=== PATIENT | male | born 1940 | race Caucasian/White ===

== ENCOUNTER 2017-03-30 11:08 | Emergency (ER) | payer MEDICARE, BC ==
[2017-03-30 11:36] VITALS: BP 151/83
--- NOTE | 2017-03-30 13:27 | EDM.PDOC ---
ED HPI GENERAL MEDICAL PROBLEM - General Chief Complaint: Lower Extremity Injury/Pain Stated Complaint: RIGHT HIP/LEG PAIN Time Seen by Provider: 03/30/17 11:24 Source of Information: Reports: Patient History Limitations: Reports: No Limitations - History of Present Illness INITIAL COMMENTS - FREE TEXT/NARRATIVE: patient comes in requesting pain medications for his chronic right hip pain. He states that he has had this pain for about the last 2 months with no improvements in his pain levels. He has had 2 injections here by Madi Olmos CRNA which he states helped for a couple of days. He has not experienced any falls or other recent trauma to the hip. He does have a primary provider but has not been to see her regarding this. He is a 1 PPD smoker, does not use illegal drugs, but does drink regularly. He denies chest pain, SOB, LOC, abdominal pain, fever, chills, night sweats. No foot drop or numbness or tingling to the leg. Duration: Chronic Location: Reports: Lower Extremity, Right Severity: Moderate Associated Symptoms: Reports: No Other Symptoms Hip Pain Score (Numeric/FACES): 9 - Related Data Allergies Allergy/AdvReac Type Severity Reaction Status Date / Time No Known Drug Allergies Allergy Other Verified 03/30/17 11:42 hydrocodone AdvReac Hallucinati Verified 03/30/17 11:42 ons Home Meds: Home Meds Allopurinol [Zyloprim] 100 mg PO DAILY 07/04/13 [History] Cyanocobalamin (Vitamin B-12) [Vitamin B-12] 1,000 mcg SL DAILY 07/04/13 [ History] Folic Acid 1 mg PO DAILY 07/04/13 [History] Lisinopril 40 mg PO DAILY 07/04/13 [History] Multivitamin [Multi-Vitamin Daily] 1 tab PO DAILY 07/04/13 [History] amLODIPine [Norvasc] 10 mg PO DAILY 07/04/13 [History] Metoprolol Tartrate 50 mg PO BID 03/04/15 [History] Mirtazapine [Remeron] 15 mg PO BEDTIME 03/04/15 [History] Pantoprazole [ProTONIX] 40 mg PO DAILY 03/04/15 [History] Sucralfate [Carafate] 1 gm PO QID 03/04/15 [History] Albuterol [IJD: Ventolin HFA] 2 puff INH Q6H PRN 02/24/17 [History] Fenofibrate Nanocrystallized [Tricor] 145 mg PO DAILY 02/24/17 [History] Sennosides/Docusate Sodium [Sennosides-Docusate Sodium] 1 tab PO DAILY PRN 02/24 [History] Simethicone 10 ml PO QID PRN 02/24/17 [History] Venlafaxine HCl [Venlafaxine ER] 150 mg PO DAILY 02/24/17 [History] Aspirin [Ecotrin] 2 tab 03/10/17 [History] Past Medical History HEENT History: Reports: Hard of Hearing, Impaired Vision Cardiovascular History: Reports: Hypertension Respiratory History: Reports: None Gastrointestinal History: Reports: Other (See Below) Other Gastrointestinal History: Figueroa's esophagus, hx colon polyps Genitourinary History: Reports: Renal Calculus Other Genitourinary History: CKD III Musculoskeletal History: Reports: Connective Tissue Disease Other Musculoskeletal History: R hip FX, surgery on back Neurological History: Reports: Other (See Below) Other Neuro History: Wernicke encephalopathy Psychiatric History: Reports: Addiction, Other (See Below) Other Psychiatric History: Dementia Hematologic History: Reports: None Immunologic History: Reports: None Oncologic (Cancer) History: Reports: None - Past Surgical History Head Surgeries/Procedures: Reports: None GI Surgical History: Reports: Colonoscopy, Hernia Repair/Other Neurological Surgical History: Reports: Lumbar Spine Musculoskeletal Surgical History: Reports: Other (See Below) Other Musculoskeletal Surgeries/Procedures:: ORIF right hip Social & Family History - Family History Family Medical History: Unobtainable Oncologic: Reports: Breast, Colon - Tobacco Use Smoking Status *Q: Current Every Day Smoker Years of Tobacco use: 70 Packs/Tins Daily: 1 Used Tobacco, but Quit: No Second Hand Smoke Exposure: Yes - Caffeine Use Caffeine Use: Reports: Tea - Alcohol Use Days Per Week of Alcohol Use: 0 Number of Drinks Per Day: 0 Total Drinks Per Week: 0 - Recreational Drug Use Recreational Drug Use: No Drug Use in Last 12 Months: No - Living Situation & Occupation Living situation: Reports: , Alone, Other ( retirement alzheimer's) Review of Systems - Review of Systems Review Of Systems: ROS reveals no pertinent complaints other than HPI. ED EXAM, GENERAL - Physical Exam Exam: See Below Exam Limited By: No Limitations General Appearance: Alert, WD/WN, Mild Distress Eye Exam: Bilateral Eye: PERRL Ears: Normal TMs Head: Atraumatic, Normocephalic Neck: Normal Inspection, Supple, Non-Tender, Full Range of Motion Respiratory/Chest: No Respiratory Distress, Lungs Clear, Normal Breath Sounds, No Accessory Muscle Use, Chest Non-Tender Cardiovascular: Normal Peripheral Pulses, Regular Rate, Rhythm, No Edema, No Gallop, No JVD, No Murmur, No Rub Peripheral Pulses: 2+: Posterior Tibial (L), Posterior Tibial (R), Dorsalis Pedis (L), Dorsalis Pedis (R) GI/Abdominal: Normal Bowel Sounds, Soft, Non-Tender, No Organomegaly, No Distention, No Abnormal Bruit, No Mass Back Exam: Normal Inspection, Full Range of Motion, NT Extremities: Normal Inspection, Non-Tender, No Pedal Edema, Normal Capillary Refill, Limited Range of Motion (right leg pain) Neurological: Alert, Oriented, CN II-XII Intact, Normal Cognition, Normal Gait, Normal Reflexes, No Motor/Sensory Deficits Psychiatric: Normal Affect, Normal Mood Skin Exam: Warm, Dry, Intact, Normal Color, No Rash Lymphatic: No Adenopathy Course - Vital Signs Last Recorded V/S: Last Vital Signs Temp 36.9 C 03/30/17 11:15 Pulse 98 03/30/17 11:15 Resp 18 03/30/17 11:15 BP 151/83 H 03/30/17 11:15 Pulse Ox 98 03/30/17 11:15 - Orders/Labs/Meds Orders: Active Orders 24 hr Category Date Time Status Pelvis wo Cont [CT] Stat Exams 03/30/17 11:43 Taken - Re-Assessments/Exams Free Text/Narrative Re-Assessment/Exam: 03/31/17 06:39 CT of right hip shows hardware is intact, no fracture, chronic arthritis to joint and bones to the hip Departure - Departure Time of Disposition: 13:14 Disposition: Home, Self-Care 01 Condition: Good Clinical Impression: Chronic right hip pain - Discharge Information Instructions: Hip Pain Referrals: Mary Ellen Polanco RAIL EQUIPMENT OPERATOR [Primary Care Provider] - Forms: ED Department Discharge Additional Instructions: Keep your appointment with Mary Ellen Polanco tomorrow at 1 pm. I don't manage chronic pain in the ER, this should be taken care of with your primary provider. Your CT did not show any problems with the hardware in your hip. Please call with any questions or concerns. - Problem List & Annotations (1) Chronic right hip pain SNOMED Code(s): 12732341 Code(s): M25.551 - PAIN IN RIGHT HIP; G89.29 - OTHER CHRONIC PAIN Status: Chronic Priority: Medium Annotation/Comment:: 24 February 2017. Patient has significant right hip pain particularly with any type of rotational movement. Also is significantly increased by weight bearing. X-ray exists exam shows degenerative changes within the hip joint. That is there does appear to be intact. This likely is the pain is related to the degenerative changes. Plan today is to do a right periarticular hip joint injection.we will follow up post injection to see if there is reduction post injection. 10 March 2017. Patient has experienced approximately 80% relief of the periarticular joint injection of the right hip. He still continues to have pain more laterally and posteriorly. I believe this is most likely secondary to the trigger points. Patient made have some degenerative hip issues that were not seen on regular radiographs. If he continues to have discomfort and some low back pain would consider an lumbar MRI and possibly a right hip MRI. If patient continues to have joint related pain, the patient may be a candidate for nerve ablation of the hip. - My Orders Last 24 Hours: My Active Orders 03/30/17 11:43 Pelvis wo Cont [CT] Stat - Assessment/Plan Last 24 Hours: My Active Orders 03/30/17 11:43 Pelvis wo Cont [CT] Stat Assessment:: chronic right hip pain Plan: Keep your appointment with Mary Ellen Polanco tomorrow at 1 pm. I don't manage chronic pain in the ER, this should be taken care of with your primary provider. Your CT did not show any problems with the hardware in your hip. Please call with any questions or concerns.
== END 2017-03-30 13:20 | disposition home or self-care (01) ==
LOC: VM.ED 11:08
DX: M25.551 Pain in right hip (principal); G89.29 Other chronic pain; I12.9 Hypertensive chronic kidney disease with stage 1 through stage 4 chronic kidney disease, or unspecified chronic kidney disease; N18.3 Chronic kidney disease, stage 3 (moderate); F17.210 Nicotine dependence, cigarettes, uncomplicated; Z88.5 Allergy status to narcotic agent; Z79.899 Other long term (current) drug therapy; Z79.82 Long term (current) use of aspirin
CPT/HCPCS: 72192; 99283; 99283-GF

== ENCOUNTER 2017-07-27 16:03 | Emergency (ER) | payer MEDICARE, BC ==
[2017-07-27] MEDS ORDERED: Sodium Chloride 0.9% 10 ML Syringe FLUSH PRN (16:32)
[2017-07-27] MEDS ORDERED: Lactated Ringers 1,000 ML IV ONE (16:33)
--- NOTE | 2017-07-27 17:25 | EDM.PDOC ---
ED HPI GENERAL MEDICAL PROBLEM - General Chief Complaint: General Stated Complaint: Weakness; Weight loss; not feeling well Time Seen by Provider: 07/27/17 16:04 Source of Information: Reports: Patient, Family, Provider (Mary Ellen Polanco NP), RN , RN Notes Reviewed History Limitations: Reports: No Limitations - History of Present Illness INITIAL COMMENTS - FREE TEXT/NARRATIVE: Patient is sent to this ED from [facility] for further workup. According to the patients PCP, the patient apparently has a failure to thrive, bilateral leg weakness, and frequent falls at home. The patient's son states television script writer found the patient laying on the floor at home. It is unknown how long the patient had been on the floor. Patient is a poor historian as he seems confused about todays events. The patient has had a 13# weight loss since 2017. He son states he has been consuming a considerable amount of water and teas. He does eat, but not very much over the past couple of weeks. Onset: Gradual Lower Back Pain Score (Numeric/FACES): 5 - Related Data Allergies Allergy/AdvReac Type Severity Reaction Status Date / Time duloxetine [From Cymbalta] Allergy Other Verified 07/27/17 16:24 hydrocodone AdvReac Hallucinati Verified 07/27/17 16:24 ons Home Meds: Home Meds Allopurinol [Zyloprim] 100 mg PO DAILY 07/04/13 [History] Folic Acid 1 mg PO DAILY 07/04/13 [History] Lisinopril 40 mg PO DAILY 07/04/13 [History] Metoprolol Tartrate 50 mg PO BID 03/04/15 [History] Mirtazapine [Remeron] 15 mg PO BEDTIME 03/04/15 [History] Pantoprazole [ProTONIX] 40 mg PO DAILY 03/04/15 [History] Sucralfate [Carafate] 1 gm PO QID 03/04/15 [History] Albuterol [IJD: Ventolin HFA] 2 puff INH Q6H PRN 02/24/17 [History] Fenofibrate Nanocrystallized [Tricor] 145 mg PO DAILY 02/24/17 [History] Sennosides/Docusate Sodium [Sennosides-Docusate Sodium] 1 tab PO DAILY PRN 02/24 [History] Simethicone 10 - 20 ml PO QID PRN 02/24/17 [History] Acetaminophen [Tylenol Extra Strength] 500 mg PO DAILY PRN 07/23/17 [History] Ibuprofen [Advil] 200 mg PO Q6H PRN 07/23/17 [History] Cyanocobalamin (Vitamin B-12) [Cyanocobalamin Injection] 1,000 mcg IM Q30D 07/27 [History] Gabapentin [Neurontin] 100 mg PO DAILY 07/27/17 [History] Venlafaxine [Effexor XR] 150 mg PO DAILY 07/27/17 [History] amLODIPine Besylate [Amlodipine Besylate] 10 mg PO DAILY 07/27/17 [History] Past Medical History HEENT History: Reports: Hard of Hearing, Impaired Vision Cardiovascular History: Reports: Hypertension Respiratory History: Reports: None Gastrointestinal History: Reports: Other (See Below) Other Gastrointestinal History: Figueroa's esophagus, hx colon polyps Genitourinary History: Reports: Renal Calculus Other Genitourinary History: CKD III Musculoskeletal History: Reports: Connective Tissue Disease Other Musculoskeletal History: R hip FX, surgery on back Neurological History: Reports: Other (See Below) Other Neuro History: Wernicke encephalopathy Psychiatric History: Reports: Addiction, Other (See Below) Other Psychiatric History: Dementia Hematologic History: Reports: None Immunologic History: Reports: None Oncologic (Cancer) History: Reports: None - Past Surgical History Head Surgeries/Procedures: Reports: None GI Surgical History: Reports: Colonoscopy, Hernia Repair/Other Neurological Surgical History: Reports: Lumbar Spine Musculoskeletal Surgical History: Reports: Other (See Below) Other Musculoskeletal Surgeries/Procedures:: ORIF right hip Social & Family History - Family History Family Medical History: Unobtainable Oncologic: Reports: Breast, Colon - Tobacco Use Smoking Status *Q: Current Every Day Smoker Years of Tobacco use: 60 Packs/Tins Daily: 1 Used Tobacco, but Quit: No Second Hand Smoke Exposure: No - Caffeine Use Caffeine Use: Reports: Tea - Alcohol Use Days Per Week of Alcohol Use: 0 Number of Drinks Per Day: 0 Total Drinks Per Week: 0 - Recreational Drug Use Recreational Drug Use: No Drug Use in Last 12 Months: No - Living Situation & Occupation Living situation: Reports: , Alone, Other ( half-way alzheimer's) ED ROS GENERAL - Review of Systems Review Of Systems: See Below Constitutional: Reports: Weakness, Decreased Appetite, Weight Loss. Denies: Fever, Chills Respiratory: Denies: Shortness of Breath, Cough Cardiovascular: Denies: Chest Pain, Palpitations GI/Abdominal: Denies: Abdominal Pain, Nausea, Vomiting Musculoskeletal: Reports: Other (Generalized pain from arthritis) Skin: Reports: No Symptoms Neurological: Reports: Confusion, Weakness, Gait Disturbance. Denies: Headache ED EXAM, GENERAL - Physical Exam Exam: See Below Exam Limited By: Altered Mental Status General Appearance: Alert, No Apparent Distress, Cachetic Head: Atraumatic, Normocephalic Neck: Supple Respiratory/Chest: No Respiratory Distress, Normal Breath Sounds, Decreased Breath Sounds Cardiovascular: Normal Peripheral Pulses, Regular Rate, Rhythm Peripheral Pulses: 1+: Radial (L), Radial (R) GI/Abdominal: Soft, Non-Tender, Abnormal Bowel Sounds (Hypoactive) Neurological: Alert, Confused, Disoriented Skin Exam: Warm, Dry EKG INTERPRETATION EKG Date: 07/27/17 Time: 16:54 Rhythm: NSR Rate (Beats/Min): 74 Doyle: Normal P-Wave: Present QRS: Normal ST-T: Normal QT: Normal RI/PQ Interval: 0.14 Comparison: No Change EKG Interpretation Comments: 1. Sinus Rhythm with occasional PVC's 2. Borderline ECG Course - Vital Signs Last Recorded V/S: Last Vital Signs Temp 36.1 C 07/27/17 16:10 Pulse 75 07/27/17 16:10 Resp 16 07/27/17 16:10 BP 145/51 H 07/27/17 16:10 Pulse Ox 97 07/27/17 16:10 - Orders/Labs/Meds Orders: Active Orders 24 hr Category Date Time Status EKG 12 Lead [EKG Documentation Completion] [RC] STAT Care 07/27/17 16:34 Active Chest 1V Frontal [CR] Stat Exams 07/27/17 16:33 Taken Head wo Cont [CT] Stat Exams 07/27/17 17:29 Taken UA W/MICROSCOPIC [URIN] Stat Lab 07/27/17 16:06 Ordered Sodium Chloride 0.9% [Saline Flush] Med 07/27/17 16:32 Active 10 ml FLUSH ASDIRECTED PRN Peripheral IV Insertion Adult [OM.PC] Routine Oth 07/27/17 16:32 Ordered Medication Orders Sodium Chloride (Saline Flush) 10 ml FLUSH ASDIRECTED PRN PRN Reason: Keep Vein Open Labs: Laboratory Tests 07/27/17 07/27/17 07/27/17 Range/Units 15:36 16:27 16:27 Lactic Acid 1.0 (0.4-2.0) mmol/L Magnesium 1.7 L (1.8-2.4) mg/dL Creatine Kinase 1087 H* (39-308) U/L Troponin I < 0.017 (<=0.056) ng/mL C-Reactive Protein 23.2 H (<=0.9) mg/dL TSH, Ultra Sensitive 0.308 L (0.358-3.74) uIU/mL Ethyl Alcohol < 3 (0-3) mg/dL Meds: Medications Generic Name Dose Route Start Last Admin Trade Name Freq PRN Reason Stop Dose Admin Sodium Chloride 10 ml 07/27/17 16:32 Saline Flush FLUSH ASDIRECTED PRN Keep Vein Open Discontinued Medications Generic Name Dose Route Start Last Admin Trade Name Freq PRN Reason Stop Dose Admin Lactated Ringer's 1,000 mls @ 999 mls/hr 07/27/17 16:33 07/27/17 17:00 Ringers, Lactated IV 07/27/17 17:33 999 mls/hr ONETIME ONE Administration Departure - Departure Time of Disposition: 18:08 Disposition: DC/Tfer to [facility] 02 Condition: Fair Clinical Impression: Acute kidney injury (nontraumatic), Bilateral leg weakness, Unintentional weight loss Rhabdomyolysis Qualifiers: Rhabdomyolysis type: non-traumatic Qualified Code(s): M62.82 - Rhabdomyolysis - Discharge Information Forms: Interfacility Transfer [facility] ED Communication - ED Communication Date/Time Date: 07/27/17 Time Called: 17:50 - Discussed Case With (1) Discussed Case With (1): Admitting Provider (Dr. Horton) - Conversation Summary Admitting Provider Agreed to Patient's Admission: Yes Patient Aware of Amendments fo Care Plan: Yes - Problem List Review Problem List Initiated/Reviewed/Updated: Yes - My Orders Last 24 Hours: My Active Orders 07/27/17 16:06 UA W/MICROSCOPIC [URIN] Stat 07/27/17 16:32 Sodium Chloride 0.9% [Saline Flush] 10 ml FLUSH ASDIRECTED PRN Peripheral IV Insertion Adult [OM.PC] Routine 07/27/17 16:33 Chest 1V Frontal [CR] Stat 07/27/17 16:34 EKG 12 Lead [EKG Documentation Completion] [RC] STAT 07/27/17 17:29 Head wo Cont [CT] Stat - Assessment/Plan Last 24 Hours: My Active Orders 07/27/17 16:06 UA W/MICROSCOPIC [URIN] Stat 07/27/17 16:32 Sodium Chloride 0.9% [Saline Flush] 10 ml FLUSH ASDIRECTED PRN Peripheral IV Insertion Adult [OM.PC] Routine 07/27/17 16:33 Chest 1V Frontal [CR] Stat 07/27/17 16:34 EKG 12 Lead [EKG Documentation Completion] [RC] STAT 07/27/17 17:29 Head wo Cont [CT] Stat Assessment:: Rhabdomyelitis Acute Kidney Injury Elevated Liver Enzymes Hypokalemia Bilateral leg weakness Plan: Case discussed with Dr. Horton, [facility]. Report given and patient accepted in transfer. Patient will be sent via ALS ground. Patient and son agree with POC and wish to proceed.
[2017-07-27 18:23] VITALS: BP 131/65
== END 2017-07-27 18:52 | disposition short-term general hospital (02) ==
LOC: VM.ED 16:03
DX: R63.4 Abnormal weight loss (principal); N17.9 Acute kidney failure, unspecified; M62.82 Rhabdomyolysis; M62.81 Muscle weakness (generalized); I12.9 Hypertensive chronic kidney disease with stage 1 through stage 4 chronic kidney disease, or unspecified chronic kidney disease; N18.3 Chronic kidney disease, stage 3 (moderate); F17.210 Nicotine dependence, cigarettes, uncomplicated; Z88.5 Allergy status to narcotic agent; Z88.8 Allergy status to other drugs, medicaments and biological substances; Z79.899 Other long term (current) drug therapy
CPT/HCPCS: 36415; 70450; 71045; 82550; 83605; 83735; 84443; 84484; 86140; 93005; 93010; 96360; 96361; 99284; 99285; G0480; J7120

== ENCOUNTER 2018-11-04 18:43 | Emergency (ER) | payer MEDICARE, BC ==
[2018-11-04] MEDS ORDERED: Methocarbamol 500 MG Tab PO ONE (19:03)
[2018-11-04] MEDS ORDERED: Take Home: traMADol 50 MG, 4 Tab Pack PO ONE (19:04)
[2018-11-04 19:06] VITALS: BP 131/63; PULSE 73
--- NOTE | 2018-11-04 19:11 | EDM.PDOC ---
ED HPI GENERAL MEDICAL PROBLEM - General Chief Complaint: Back Pain or Injury Stated Complaint: BACK PAIN Time Seen by Provider: 11/04/18 19:00 Source of Information: Reports: Patient, Other (Neighbor) History Limitations: Reports: No Limitations - History of Present Illness INITIAL COMMENTS - FREE TEXT/NARRATIVE: 77-year-old white male who presents her to the clinic with left-sided back pain times about a day and a half patient states it is a 10 out of 10 throbbing constant but gets worse with walking and movement somewhat better with sitting or laying but still hurts. Patient denies any injury states he does have intermittent back pain for years. States he also has a history of kidney stones but this does not feel like it. He denies any fever or chills nausea or vomiting abdominal pain trouble with urination hematuria. He also denies any numbness or tingling loss of sensation or weakness. He has had multiple back surgeries in the past with fusions states he is only taken a couple aspirin at home which did not alleviate the pain He has no known history of aneurysms Patient states the pain is just to the left side of the spine he denies any radiation pain Duration: Day(s): Location: Reports: Back Quality: Reports: Throbbing Severity: Severe Improves with: Reports: Rest Worsens with: Reports: Movement Associated Symptoms: Reports: No Other Symptoms Treatments MEDICAL PLANNER: Reports: Aspirin - Related Data Allergies Allergy/AdvReac Type Severity Reaction Status Date / Time duloxetine [From Cymbalta] Allergy Other Verified 11/04/18 19:02 hydrocodone AdvReac Hallucinati Verified 11/04/18 19:02 ons Home Meds: Home Meds Allopurinol [Zyloprim] 100 mg PO DAILY 07/04/13 [History] Folic Acid 1 mg PO DAILY 07/04/13 [History] Lisinopril 40 mg PO DAILY 07/04/13 [History] Mirtazapine [Remeron] 15 mg PO BEDTIME 03/04/15 [History] Pantoprazole [ProTONIX] 40 mg PO DAILY 03/04/15 [History] Sucralfate [Carafate] 1 gm PO QID 03/04/15 [History] Albuterol [IJD: Ventolin HFA] 2 puff INH Q6H PRN 02/24/17 [History] Ibuprofen [Advil] 200 mg PO Q6H PRN 07/23/17 [History] Cyanocobalamin (Vitamin B-12) [Cyanocobalamin Injection] 1,000 mcg IM Q30D 07/27 [History] Gabapentin [Neurontin] 100 mg PO TID 07/27/17 [History] Venlafaxine [Effexor XR] 150 mg PO DAILY 07/27/17 [History] amLODIPine Besylate [Amlodipine Besylate] 10 mg PO DAILY 07/27/17 [History] Acetaminophen/Caffeine [Excedrin Tension Headache Cplt] 1 - 2 tab PO Q4H PRN [History] Bisacodyl 5 - 15 mg PO QAM PRN 01/26/18 [History] Carvedilol [Coreg] 25 mg PO BID 01/26/18 [History] Cholecalciferol (Vitamin D3) [Vitamin D3] 2,000 unit PO DAILY 01/26/18 [History] Polyethylene Glycol 3350 [MiraLAX] 1 packet PO DAILY PRN 01/26/18 [History] Past Medical History HEENT History: Reports: Hard of Hearing, Impaired Vision Cardiovascular History: Reports: High Cholesterol, Hypertension Respiratory History: Reports: None Gastrointestinal History: Reports: GERD, Other (See Below) Other Gastrointestinal History: Figueroa's esophagus, hx colon polyps, fm hx colon ca Genitourinary History: Reports: BPH, Chronic Renal Insuffiency, Renal Calculus, Renal Disease Other Genitourinary History: CKD III Musculoskeletal History: Reports: Connective Tissue Disease, Gout Other Musculoskeletal History: R hip FX, surgery on back, chronic fatigue Neurological History: Reports: Other (See Below) Other Neuro History: Wernicke encephalopathy Psychiatric History: Reports: Addiction, Anxiety, Depression, Other (See Below) Other Psychiatric History: Dementia Endocrine/Metabolic History: Reports: Other (See Below) Other Endocrine/Metabolic History: spinal stenosis lumbar Hematologic History: Reports: B12 Deficiency, Other (See Below) Other Hematologic History: hypokalemia. mypomagnesemia Immunologic History: Reports: None Oncologic (Cancer) History: Reports: None - Past Surgical History Head Surgeries/Procedures: Reports: None HEENT Surgical History: Reports: Other (See Below) Other HEENT Surgeries/Procedures: Bevacizumab injection GI Surgical History: Reports: Colonoscopy, Hernia Repair/Other Male Surgical History: Reports: Renal Calculus Neurological Surgical History: Reports: Lumbar Spine Musculoskeletal Surgical History: Reports: Other (See Below) Other Musculoskeletal Surgeries/Procedures:: ORIF right hip Social & Family History - Family History Family Medical History: Unobtainable Oncologic: Reports: Breast, Colon - Caffeine Use Caffeine Use: Reports: Tea - Living Situation & Occupation Living situation: Reports: , Alone, Other ( [facility]) ED ROS GENERAL - Review of Systems Review Of Systems: See Below Constitutional: Reports: No Symptoms. Denies: Fever, Chills, Malaise, Weakness , Fatigue HEENT: Reports: No Symptoms Respiratory: Reports: No Symptoms Cardiovascular: Reports: No Symptoms Endocrine: Reports: No Symptoms GI/Abdominal: Reports: No Symptoms. Denies: Abdominal Pain, Black Stool, Bloody Stool : Reports: No Symptoms. Denies: Dysuria, Flank Pain, Frequency, Pain Musculoskeletal: Reports: Back Pain Skin: Reports: No Symptoms Neurological: Reports: No Symptoms Hematologic/Lymphatic: Reports: No Symptoms Immunologic: Reports: No Symptoms ED EXAM,LOWER BACK PAIN/INJURY - Physical Exam Exam: See Below Exam Limited By: No Limitations General Appearance: Alert, WD/WN, No Apparent Distress, Other (PT currently uses a quad roller) Throat/Mouth: Normal Voice, No Airway Compromise Head: Atraumatic, Normocephalic Neck: Normal Inspection, Full Range of Motion Respiratory/Chest: No Respiratory Distress, No Accessory Muscle Use GI/Abdominal: Normal Bowel Sounds, Soft, Non-Tender, No Organomegaly, No Distention Back Exam: Normal Inspection, Full Range of Motion, Other (No noted rashes on the back no midline tenderness palpation mild tenderness to palpation over the left lateral paraspinal muscle with reproduction of pain proximally L3 area no noted spasms could be felt patient has full range of motion normal straight leg raises 2+ DTRs bilateral normal dorsiflexion normal plantar flexion equal sensation) Extremities: Normal Inspection, Normal Range of Motion, Non-Tender, No Pedal Edema. No: Pedal Edema Neurological: Alert, Normal Mood/Affect, Normal Dorsiflexion, CN II-XII Intact, Normal Plantar Flexion, Normal Gait, Normal Reflexes, No Motor/Sensory Deficits , Oriented x 3 Psychiatric: Normal Affect, Normal Mood Skin Exam: Warm, Dry, Intact, Normal Color, No Rash Course - Vital Signs Text/Narrative:: Patient was given 1000 mg Robaxin by mouth and Ultram 50 mg 1 by mouth every 6- 8 hours taken on package 2 was told to take Tylenol one tablet by mouth every 4 -6 hours apply ice or heat whichever make him more comfortable follow-up primary care provider next 2-3 days or return to emergency room if anything got worse - Orders/Labs/Meds Orders: Active Orders 24 hr Category Date Time Status traMADol [Take Home: traMADol 50 MG, 4 Tab Pack] Med 11/04/18 19:04 Once 2 packet PO ONETIME ONE Meds: Medications Discontinued Medications Generic Name Dose Route Start Last Admin Trade Name Malvinq PRN Reason Stop Dose Admin Methocarbamol 1,000 mg 11/04/18 19:03 Robaxin PO 11/04/18 19:04 ONETIME ONE Departure - Departure Time of Disposition: 19:20 Disposition: Home, Self-Care 01 Condition: Good Clinical Impression: Back pain - Discharge Information *PRESCRIPTION DRUG MONITORING PROGRAM REVIEWED*: No *COPY OF PRESCRIPTION DRUG MONITORING REPORT IN PATIENT KAYLAN: No Referrals: Mary Ellen Polanco NP [Primary Care Provider] - - Problem List & Annotations (1) Back pain SNOMED Code(s): 987594324 Code(s): M54.9 - DORSALGIA, UNSPECIFIED Status: Acute Current Visit: Yes Qualifiers: Back pain location: low back pain Back pain laterality: left - My Orders Last 24 Hours: My Active Orders 11/04/18 19:04 traMADol [Take Home: traMADol 50 MG, 4 Tab Pack] 2 packet PO ONETIME ONE - Assessment/Plan Last 24 Hours: My Active Orders 11/04/18 19:04 traMADol [Take Home: traMADol 50 MG, 4 Tab Pack] 2 packet PO ONETIME ONE
== END 2018-11-04 19:23 | disposition home or self-care (01) ==
LOC: VM.ED 18:43
DX: M54.5 Low back pain (principal); I12.9 Hypertensive chronic kidney disease with stage 1 through stage 4 chronic kidney disease, or unspecified chronic kidney disease; N18.3 Chronic kidney disease, stage 3 (moderate); K21.9 Gastro-esophageal reflux disease without esophagitis; F41.9 Anxiety disorder, unspecified; F32.9 Major depressive disorder, single episode, unspecified; M10.9 Gout, unspecified; Z88.5 Allergy status to narcotic agent; Z88.8 Allergy status to other drugs, medicaments and biological substances; Z79.82 Long term (current) use of aspirin; Z79.01 Long term (current) use of anticoagulants; Z79.811 Long term (current) use of aromatase inhibitors; Z79.1 Long term (current) use of non-steroidal anti-inflammatories (NSAID); Z79.891 Long term (current) use of opiate analgesic; Z79.899 Other long term (current) drug therapy
CPT/HCPCS: 99282; A9270; 99283-GF

== ENCOUNTER 2018-11-05 12:44 | Emergency (ER) | payer MEDICARE, BC ==
[2018-11-05 12:55] VITALS: BP 142/75; PULSE 86
--- NOTE | 2018-11-05 13:16 | EDM.PDOC ---
ED HPI GENERAL MEDICAL PROBLEM - General Chief Complaint: Back Pain or Injury Stated Complaint: KIDNEY STONE Time Seen by Provider: 11/05/18 12:55 Source of Information: Reports: Patient History Limitations: Reports: No Limitations - History of Present Illness INITIAL COMMENTS - FREE TEXT/NARRATIVE: Patient presents again to the ER today for the second time with still complaints of having left lower back pain 10 out of 10 throbbing nonradiating same as yesterday but today he thinks it may be a kidney stone. He states that he did take the medications he received last night ER Robaxin and Ultram was able sleep through the night with no issues but the pain returned today. There for he returned to the emergency room. Patient denies any abdominal complaints no nausea vomiting no pain radiation no weakness no loss of bowel or bladder no numbness no tingling or walking no urinary retention Duration: Hour(s): Location: Reports: Back Improves with: Reports: Medication Worsens with: Reports: Movement Left Lower Back Pain Score (Numeric/FACES): 10 - Related Data Allergies Allergy/AdvReac Type Severity Reaction Status Date / Time duloxetine [From Cymbalta] Allergy Other Verified 11/05/18 12:56 hydrocodone AdvReac Hallucinati Verified 11/05/18 12:56 ons Home Meds: Home Meds Allopurinol [Zyloprim] 100 mg PO DAILY 07/04/13 [History] Folic Acid 1 mg PO DAILY 07/04/13 [History] Lisinopril 40 mg PO DAILY 07/04/13 [History] Mirtazapine [Remeron] 15 mg PO BEDTIME 03/04/15 [History] Pantoprazole [ProTONIX] 40 mg PO DAILY 03/04/15 [History] Sucralfate [Carafate] 1 gm PO QID 03/04/15 [History] Albuterol [IJD: Ventolin HFA] 2 puff INH Q6H PRN 02/24/17 [History] Ibuprofen [Advil] 600 mg PO Q6H PRN 07/23/17 [History] Cyanocobalamin (Vitamin B-12) [Cyanocobalamin Injection] 1,000 mcg IM Q30D 07/27 [History] Gabapentin [Neurontin] 100 mg PO TID 07/27/17 [History] Venlafaxine [Effexor XR] 150 mg PO DAILY 07/27/17 [History] amLODIPine Besylate [Amlodipine Besylate] 10 mg PO DAILY 07/27/17 [History] Acetaminophen/Caffeine [Excedrin Tension Headache Cplt] 1 - 2 tab PO Q4H PRN [History] Bisacodyl 5 - 15 mg PO QAM PRN 01/26/18 [History] Carvedilol [Coreg] 25 mg PO BID 01/26/18 [History] Cholecalciferol (Vitamin D3) [Vitamin D3] 2,000 unit PO DAILY 01/26/18 [History] Polyethylene Glycol 3350 [MiraLAX] 1 packet PO DAILY PRN 01/26/18 [History] Past Medical History HEENT History: Reports: Hard of Hearing, Impaired Vision Cardiovascular History: Reports: High Cholesterol, Hypertension Respiratory History: Reports: None Gastrointestinal History: Reports: GERD, Other (See Below) Other Gastrointestinal History: Figueroa's esophagus, hx colon polyps, fm hx colon ca Genitourinary History: Reports: BPH, Chronic Renal Insuffiency, Renal Calculus, Renal Disease Other Genitourinary History: CKD III Musculoskeletal History: Reports: Connective Tissue Disease, Gout Other Musculoskeletal History: R hip FX, surgery on back, chronic fatigue Neurological History: Reports: Other (See Below) Other Neuro History: Wernicke encephalopathy Psychiatric History: Reports: Addiction, Anxiety, Depression, Other (See Below) Other Psychiatric History: Dementia Endocrine/Metabolic History: Reports: Other (See Below) Other Endocrine/Metabolic History: spinal stenosis lumbar Hematologic History: Reports: B12 Deficiency, Other (See Below) Other Hematologic History: hypokalemia. mypomagnesemia Immunologic History: Reports: None Oncologic (Cancer) History: Reports: None - Past Surgical History Head Surgeries/Procedures: Reports: None HEENT Surgical History: Reports: Other (See Below) Other HEENT Surgeries/Procedures: Bevacizumab injection GI Surgical History: Reports: Colonoscopy, Hernia Repair/Other Male Surgical History: Reports: Renal Calculus Neurological Surgical History: Reports: Lumbar Spine Musculoskeletal Surgical History: Reports: Other (See Below) Other Musculoskeletal Surgeries/Procedures:: ORIF right hip Social & Family History - Family History Family Medical History: Unobtainable Oncologic: Reports: Breast, Colon - Tobacco Use Smoking Status *Q: Unknown Ever Smoked - Caffeine Use Caffeine Use: Reports: Tea - Living Situation & Occupation Living situation: Reports: , Alone, Other ( [facility]) ED ROS GENERAL - Review of Systems Review Of Systems: See Below Constitutional: Reports: No Symptoms. Denies: Fever, Chills, Malaise, Weakness , Fatigue HEENT: Reports: No Symptoms Respiratory: Reports: No Symptoms Cardiovascular: Reports: No Symptoms GI/Abdominal: Reports: No Symptoms : Reports: No Symptoms Musculoskeletal: Reports: Back Pain Skin: Reports: No Symptoms Neurological: Reports: No Symptoms Psychiatric: Reports: No Symptoms Hematologic/Lymphatic: Reports: No Symptoms Immunologic: Reports: No Symptoms ED EXAM,LOWER BACK PAIN/INJURY - Physical Exam Exam: See Below Exam Limited By: No Limitations General Appearance: Alert, WD/WN, No Apparent Distress, Other (PT with a normal gait and using his quad walker no acute distress, walking in the emergency room to distress sitting in the chair) Eye Exam: Bilateral Eye: EOMI Throat/Mouth: Normal Inspection, Normal Lips, Normal Teeth, Normal Gums, Normal Voice, No Airway Compromise Neck: Non-Tender, Full Range of Motion Respiratory/Chest: No Respiratory Distress, No Accessory Muscle Use Cardiovascular: Normal Peripheral Pulses, Regular Rate, Rhythm, No Edema GI/Abdominal: Normal Bowel Sounds, Soft, Non-Tender, No Organomegaly, Other (No CVA tenderness) Extremities: Normal Inspection, Normal Range of Motion, No Pedal Edema, Other ( Exam to the back no tenderness palpation midline no CVA tenderness positive tenderness palpation over the paraspinal muscles approximate L3-L4 level no noted spasms could not produce any type of radiation with palpation. Normal straight leg raises 5 of 5 strength bilateral lower extremities normal dorsiflexion and plantar flexion 2+ DTRs). No: Non-Tender Neurological: Alert, Normal Mood/Affect, Normal Dorsiflexion, CN II-XII Intact, Normal Plantar Flexion, Normal Gait, Normal Reflexes, No Motor/Sensory Deficits , Oriented x 3 Psychiatric: Normal Affect, Normal Mood Skin Exam: Warm, Dry, Intact, Normal Color, No Rash Course - Vital Signs Text/Narrative:: Urinalysis revealed no blood no signs or symptoms of infection Review of report of abdominal pelvis CT performed in July 2017 patient has no history of AAA and on prior CT performed 2015 Patient walked over to the nurse's station states he is ready to go his pain is about a 5 8 mL still has a few more the Ultram at home which asked that takes the pain down to about a 3 when he takes at this time patient will be discharged and he will be given prescription for Ultram 50 mg one by mouth every 6-8 hours number of 13 and told to follow with his primary care provider he is okay with the discharge and treatment Last Recorded V/S: Last Vital Signs Temp 36.7 C 11/05/18 12:50 Pulse 86 11/05/18 12:50 Resp 20 11/05/18 12:50 BP 142/75 H 11/05/18 12:50 Pulse Ox 97 11/05/18 12:50 - Orders/Labs/Meds Labs: Laboratory Tests 11/05/18 Range/Units 13:05 Urine Color Yellow (YELLOW) POC Urine Appearance Slightly cloudy H (CLEAR) POC Urine pH 6.0 (5.0-8.0) Ur Specific [place] >1.030 H (1.005-1.030) POC Urine Protein 100 H (NEGATIVE) POC Ur Glucose (UA) Negative (NEGATIVE) POC Urine Ketones Negative (NEGATIVE) POC Ur Occult Blood Negative (NEGATIVE) POC Urine Nitrite Negative (NEGATIVE) POC Urine Bilirubin Negative (NEGATIVE) POC Urine Urobilinogen 0.2 (0.2) POC U Leukocyte Esteras Negative (NEGATIVE) Departure - Departure Time of Disposition: 14:45 Disposition: Home, Self-Care 01 Condition: Good Clinical Impression: Back pain Qualifiers: Back pain location: low back pain Back pain laterality: left - Discharge Information Referrals: Mary lElen Polanco NP [Primary Care Provider] - Forms: ED Department Discharge - Problem List & Annotations (1) Back pain SNOMED Code(s): 760098515 Code(s): M54.9 - DORSALGIA, UNSPECIFIED Status: Acute Current Visit: Yes Qualifiers: Back pain location: low back pain Back pain laterality: left
== END 2018-11-05 14:56 | disposition home or self-care (01) ==
LOC: VM.ED 12:44
DX: M54.5 Low back pain (principal); E78.00 Pure hypercholesterolemia, unspecified; K21.9 Gastro-esophageal reflux disease without esophagitis; I12.9 Hypertensive chronic kidney disease with stage 1 through stage 4 chronic kidney disease, or unspecified chronic kidney disease; N18.3 Chronic kidney disease, stage 3 (moderate); F41.9 Anxiety disorder, unspecified; F32.9 Major depressive disorder, single episode, unspecified; F03.90 Unspecified dementia, unspecified severity, without behavioral disturbance, psychotic disturbance, mood disturbance, and anxiety; Z88.8 Allergy status to other drugs, medicaments and biological substances; Z88.6 Allergy status to analgesic agent; Z79.899 Other long term (current) drug therapy; Z96.641 Presence of right artificial hip joint
CPT/HCPCS: 81002; 99283; 99283-GF

== ENCOUNTER 2019-09-06 18:29 | Emergency (ER) | payer MEDICARE, BC ==
[2019-09-06 18:53] VITALS: BP 138/99; PULSE 82
--- NOTE | 2019-09-06 19:05 | EDM.PDOC ---
ED HPI GENERAL MEDICAL PROBLEM - General Chief Complaint: General Stated Complaint: NECK PAIN Time Seen by Provider: 09/06/19 18:55 Source of Information: Reports: Patient History Limitations: Reports: No Limitations - History of Present Illness INITIAL COMMENTS - FREE TEXT/NARRATIVE: Patient comes emergency department today with complaints of right neck pain. Patient has a history of arthritis in his neck and kind of struggles with chronic neck pain. Over the past week and a half he has had increased pain on the lateral aspect of his neck right below his ear that extends down to the base of the neck. He has had no recent falls or trauma to his neck. He has no headache fever or chills. This is very similar pain he was seen for in the clinic a week ago where he received some trigger point injections which she reports had little to no improvement of the pain even at the time of injection. It is been difficult for him to sleep. He has been taking what he reports as Excedrin tension migraine take medication 3 times a day where he takes 6 of these tablets at a time. He has done this for many years where he takes this many tablets and he is not going to change because that is the way he is and takes his medications. He has been told not to do that in the past but doesn't care and will do what he wants to do. He has not tried any ice or heat. He does have an appointment with PT on Wednesday. No headache with this pain. Some decreased ROM of the neck but this is chronic for himself. No mouth or dental pain. No rash lumps or bumps. No pain down his shoulders or arms. No chest pain jaw pain SOB. Right Neck Pain Score (Numeric/FACES): 10 - Related Data Allergies Allergy/AdvReac Type Severity Reaction Status Date / Time duloxetine [From Cymbalta] Allergy Other Verified 09/06/19 18:47 hydrocodone AdvReac Hallucinati Verified 09/06/19 18:47 ons Home Meds: Home Meds Folic Acid 1 mg PO DAILY 07/04/13 [History] Lisinopril 40 mg PO DAILY 07/04/13 [History] allopurinoL [Zyloprim] 100 mg PO DAILY 07/04/13 [History] Mirtazapine [Remeron] 15 mg PO BEDTIME 03/04/15 [History] Pantoprazole [ProTONIX] 40 mg PO DAILY 03/04/15 [History] Sucralfate [Carafate] 1 gm PO QID 03/04/15 [History] Albuterol [IJD: Ventolin HFA] 2 puff INH Q6H PRN 02/24/17 [History] Ibuprofen [Advil] 600 mg PO Q6H PRN 07/23/17 [History] Cyanocobalamin (Vitamin B-12) [Cyanocobalamin Injection] 1,000 mcg IM Q30D 07/27 [History] Gabapentin [Neurontin] 100 mg PO TID 07/27/17 [History] Venlafaxine [Effexor XR] 150 mg PO DAILY 07/27/17 [History] amLODIPine Besylate [Amlodipine Besylate] 10 mg PO DAILY 07/27/17 [History] Acetaminophen/Caffeine [Excedrin Tension Headache Cplt] 1 - 2 tab PO Q4H PRN [History] Cholecalciferol (Vitamin D3) [Vitamin D3] 2,000 unit PO DAILY 01/26/18 [History] bisacodyL [Bisacodyl] 5 - 15 mg PO QAM PRN 01/26/18 [History] carvediloL [Coreg] 25 mg PO BID 01/26/18 [History] polyethylene glycoL 3350 [MiraLAX] 1 packet PO DAILY PRN 01/26/18 [History] Cyclobenzaprine HCl 5 mg PO BID PRN #8 tablet 09/06/19 [Rx] Past Medical History HEENT History: Reports: Hard of Hearing, Impaired Vision Cardiovascular History: Reports: High Cholesterol, Hypertension Respiratory History: Reports: None Gastrointestinal History: Reports: GERD, Other (See Below) Other Gastrointestinal History: Figueroa's esophagus, hx colon polyps, fm hx colon ca Genitourinary History: Reports: BPH, Chronic Renal Insuffiency, Renal Calculus, Renal Disease Other Genitourinary History: CKD III Musculoskeletal History: Reports: Connective Tissue Disease, Gout Other Musculoskeletal History: R hip FX, surgery on back, chronic fatigue Neurological History: Reports: Other (See Below) Other Neuro History: Wernicke encephalopathy Psychiatric History: Reports: Addiction, Anxiety, Depression, Other (See Below) Other Psychiatric History: Dementia Endocrine/Metabolic History: Reports: Other (See Below) Other Endocrine/Metabolic History: spinal stenosis lumbar Hematologic History: Reports: B12 Deficiency, Other (See Below) Other Hematologic History: hypokalemia. mypomagnesemia Immunologic History: Reports: None Oncologic (Cancer) History: Reports: None - Past Surgical History Head Surgeries/Procedures: Reports: None HEENT Surgical History: Reports: Other (See Below) Other HEENT Surgeries/Procedures: Bevacizumab injection GI Surgical History: Reports: Colonoscopy, Hernia Repair/Other Male Surgical History: Reports: Renal Calculus Neurological Surgical History: Reports: Lumbar Spine Musculoskeletal Surgical History: Reports: Other (See Below) Other Musculoskeletal Surgeries/Procedures:: ORIF right hip Social & Family History - Family History Family Medical History: Unobtainable Oncologic: Reports: Breast, Colon - Tobacco Use Smoking Status *Q: Current Every Day Smoker Years of Tobacco use: 60 Packs/Tins Daily: 1 - Caffeine Use Caffeine Use: Reports: Tea - Recreational Drug Use Recreational Drug Use: No - Living Situation & Occupation Living situation: Reports: , Alone, Other ( half-way alzheimer's) ED ROS GENERAL - Review of Systems Review Of Systems: Comprehensive ROS is negative, except as noted in HPI. ED EXAM, GENERAL - Physical Exam Exam: See Below General Appearance: Alert, WD/WN, Thin Eye Exam: Bilateral Eye: EOMI, PERRL Ears: Normal External Exam, Normal Canal (occluded with cerumen. ) Nose: Normal Inspection, Normal Mucosa Throat/Mouth: Normal Inspection, Normal Gums (he has full dentures. ) Head: Atraumatic, Normocephalic Neck: Limited Range of Motion, Tender Lateral (He has tenderness in the muscle group along the lateral aspect of his neck from his ear down to the nape of the neck. There is no bony deformity subcutaneous emphysema bruising swelling ecchymosis or other signs of trauma. He does have somewhat decreased range of motion.). No: Carotid Bruit, Lymphadenopathy (L), Lymphadenopathy (R), Tender Midline, Thyromegaly Respiratory/Chest: No Respiratory Distress Cardiovascular: Normal Peripheral Pulses, Regular Rate, Rhythm Back Exam: Normal Inspection Neurological: Alert, Oriented, CN II-XII Intact, Normal Cognition, No Motor/ Sensory Deficits Psychiatric: Normal Affect Skin Exam: Warm, Dry, Intact, Normal Color Course - Vital Signs Last Recorded V/S: Last Vital Signs Temp 37.2 C 09/06/19 18:30 Pulse 82 09/06/19 18:30 Resp 16 09/06/19 18:30 BP 138/99 H 09/06/19 18:30 Pulse Ox 98 09/06/19 18:30 - Orders/Labs/Meds Meds: Medications Discontinued Medications Generic Name Dose Route Start Last Admin Trade Name Mitzi PRN Reason Stop Dose Admin Cyclobenzaprine HCl 5 mg 09/06/19 19:07 09/06/19 19:15 Flexeril PO 09/06/19 19:08 5 mg ONETIME ONE Administration - Radiology Interpretation Free Text/Narrative:: Did review the C-spine x-ray that he had completed in the clinic 2 days ago. Which is findings of severe multilevel cervical spondylosis. No obvious traumatic injuries are seen. - Re-Assessments/Exams Free Text/Narrative Re-Assessment/Exam: 09/06/19 19:37 Did review his chart from the clinic and he had a C-spine x-ray which shows quite a bit of degenerative chronic spondylosis. Trigger point injection although I do not feel comfortable doing trigger point injections in this area of the neck with the rather large amount of vascularity that is under there. I discussed with him that it is very important to only take [id number] medication as prescribed he can be very dangerous. I would like him to use ibuprofen instead of something for his headache as this is more musculoskeletal in nature. I will give him a short course of low-dose Flexeril with caution of sedation and falling. He is comfortable with this plan and his questions are answered. Departure - Departure Time of Disposition: 19:00 Disposition: Home, Self-Care 01 Clinical Impression: Neck pain on right side - Discharge Information Prescriptions: Cyclobenzaprine HCl 5 mg PO BID PRN #8 tablet PRN Reason: Pain Referrals: Max Blank NP [Primary Care Provider] - Forms: ED Department Discharge Additional Instructions: I would not use the Excedrin Migraine that was prescribed for your Headaches for this neck pain. Try the Ibuprofen 600mg twice daily for pain. Take with food. Use this for the shortest course for your pain. You Can also use Tylenol OTC. Follow the instructions on the box. Do not take more than the box recommends. Make sure and take OTC medications only as directed on the box. See physical therapy on wednesday as planned. Heat or Ice to the area which ever works best. If pain not controlled with above. Flexeril, 1 tablet twice daily as needed for muscle pain spasm. Return to the ED if new or worsening symptoms. Follow up with PCP in the next 4-6 days if not improving sooner if worse. Sepsis Event Note (ED) - Evaluation Sepsis Screening Result: No Definite Risk - Focused Exam Vital Signs: Vital Signs Temp Pulse Resp BP Pulse Ox 09/06/19 18:30 37.2 C 82 16 138/99 H 98 - Assessment/Plan Assessment:: Subacute right neck pain spasm. Chronic arthritis of the neck. Plan: I would not use the Excedrin Migraine that was prescribed for your Headaches for this neck pain. Try the Ibuprofen 600mg twice daily for pain. Take with food. Use this for the shortest course for your pain. You Can also use Tylenol OTC. Follow the instructions on the box. Do not take more than the box recommends. Make sure and take OTC medications only as directed on the box. See physical therapy on wednesday as planned. Heat or Ice to the area which ever works best. If pain not controlled with above. Flexeril, 1 tablet twice daily as needed for muscle pain spasm. Return to the ED if new or worsening symptoms. Follow up with PCP in the next 4-6 days if not improving sooner if worse.
[2019-09-06] MEDS ORDERED: Cyclobenzaprine 10 MG Tab PO ONE (19:07)
== END 2019-09-06 19:26 | disposition home or self-care (01) ==
LOC: VM.ED 18:29
DX: M46.82 Other specified inflammatory spondylopathies, cervical region (principal); I12.9 Hypertensive chronic kidney disease with stage 1 through stage 4 chronic kidney disease, or unspecified chronic kidney disease; N18.3 Chronic kidney disease, stage 3 (moderate); E78.00 Pure hypercholesterolemia, unspecified; K21.9 Gastro-esophageal reflux disease without esophagitis; M10.9 Gout, unspecified; F41.9 Anxiety disorder, unspecified; F32.9 Major depressive disorder, single episode, unspecified; F17.210 Nicotine dependence, cigarettes, uncomplicated; Z88.8 Allergy status to other drugs, medicaments and biological substances; Z88.5 Allergy status to narcotic agent; Z79.899 Other long term (current) drug therapy
CPT/HCPCS: 99283; A9270; 99284-GF

== ENCOUNTER 2019-12-12 13:52 | Emergency (ER) | payer MEDICARE, BC ==
[2019-12-12] MEDS ORDERED: Sodium Chloride 0.9% 10 ML Syringe FLUSH PRN (13:54)
[2019-12-12] MEDS ORDERED: Sodium Chloride 0.9% 1,000 ML IV ONE (13:56)
--- NOTE | 2019-12-12 14:16 | EDM.PDOC ---
ED HPI GENERAL MEDICAL PROBLEM - General Stated Complaint: STROKE CODE Time Seen by Provider: 12/12/19 13:53 Source of Information: Reports: Patient, EMS - History of Present Illness INITIAL COMMENTS - FREE TEXT/NARRATIVE: Daniel is an 79 y/o male who arrives to the ER by EMS. He had apparently supposed to be at a clinic appt and did not show up today. His caregiver arrived to his home about 1300 and noticed that he had new-onset right arm weakness. He had apparently called the police today about 1234 and asked for lift assistance and then refused when they arrived to the home. Glucose=92 enroute to ER by EMS. Patient cannot give too many more events that lead up to him arriving here to the ER. - Related Data Allergies Allergy/AdvReac Type Severity Reaction Status Date / Time duloxetine [From Cymbalta] Allergy Other Verified 12/12/19 16:31 hydrocodone AdvReac Hallucinati Verified 12/12/19 16:31 ons Home Meds: Home Meds Folic Acid 1 mg PO DAILY 07/04/13 [History] Lisinopril 40 mg PO DAILY 07/04/13 [History] allopurinoL [Zyloprim] 100 mg PO DAILY 07/04/13 [History] Mirtazapine [Remeron] 15 mg PO BEDTIME 03/04/15 [History] Pantoprazole [ProTONIX] 40 mg PO DAILY 03/04/15 [History] Sucralfate [Carafate] 1 gm PO QID 03/04/15 [History] Albuterol [IJD: Ventolin HFA] 2 puff INH Q6H PRN 02/24/17 [History] Ibuprofen [Advil] 600 mg PO Q6H PRN 07/23/17 [History] Gabapentin [Neurontin] 100 mg PO TID 07/27/17 [History] Venlafaxine [Effexor XR] 150 mg PO DAILY 07/27/17 [History] amLODIPine Besylate [Amlodipine Besylate] 10 mg PO DAILY 07/27/17 [History] bisacodyL [Bisacodyl] 5 - 15 mg PO QAM PRN 01/26/18 [History] carvediloL [Coreg] 25 mg PO BID 01/26/18 [History] polyethylene glycoL 3350 [MiraLAX] 1 packet PO DAILY PRN 01/26/18 [History] Aspirin/Acetaminophen/Caffeine [Excedrin Migraine Caplet] 1 - 2 tab PO Q4H PRN 12/12/19 [History] Cyclobenzaprine [Flexeril] 10 mg PO TID 12/12/19 [History] Dextran 70/Hypromellose [Genteal Tears 0.1%-0.3% Drop] 1 drop EYEBOTH TID 12/12/19 [History] Magnesium Hydroxide [Milk of Magnesia] 15 ml PO DAILY 12/12/19 [History] Oxybutynin 5 mg PO DAILY 12/12/19 [History] Past Medical History HEENT History: Reports: Hard of Hearing, Impaired Vision Cardiovascular History: Reports: High Cholesterol, Hypertension Respiratory History: Reports: None Gastrointestinal History: Reports: GERD, Other (See Below) Other Gastrointestinal History: Figueroa's esophagus, hx colon polyps, fm hx colon ca Genitourinary History: Reports: BPH, Chronic Renal Insuffiency, Renal Calculus, Renal Disease Other Genitourinary History: CKD III Musculoskeletal History: Reports: Connective Tissue Disease, Gout Other Musculoskeletal History: R hip FX, surgery on back, chronic fatigue Neurological History: Reports: Other (See Below) Other Neuro History: Wernicke encephalopathy Psychiatric History: Reports: Addiction, Anxiety, Depression, Other (See Below) Other Psychiatric History: Dementia Endocrine/Metabolic History: Reports: Other (See Below) Other Endocrine/Metabolic History: spinal stenosis lumbar Hematologic History: Reports: B12 Deficiency, Other (See Below) Other Hematologic History: hypokalemia. mypomagnesemia Immunologic History: Reports: None Oncologic (Cancer) History: Reports: None - Past Surgical History Head Surgeries/Procedures: Reports: None HEENT Surgical History: Reports: Other (See Below) Other HEENT Surgeries/Procedures: Bevacizumab injection GI Surgical History: Reports: Colonoscopy, Hernia Repair/Other Male Surgical History: Reports: Renal Calculus Neurological Surgical History: Reports: Lumbar Spine Musculoskeletal Surgical History: Reports: Other (See Below) Other Musculoskeletal Surgeries/Procedures:: ORIF right hip Social & Family History - Family History Family Medical History: Unobtainable Oncologic: Reports: Breast, Colon - Caffeine Use Caffeine Use: Reports: Tea - Alcohol Use Alcohol Use Comment: Denies recent ETOH use - Recreational Drug Use Drug Use in Last 12 Months: Yes Recreational Drug Type: Reports: Marijuana/Hashish Other Recreational Drug Type: Last use 2 days ago - Living Situation & Occupation Living situation: Reports: , Alone, Other ( assisted alzheimer's) Review of Systems - Review of Systems Review Of Systems: See Below Constitutional: Reports: Weakness Eyes: Reports: No Symptoms Ears: Reports: No Symptoms Nose: Reports: No Symptoms Mouth/Throat: Reports: No Symptoms Respiratory: Reports: No Symptoms Cardiovascular: Reports: No Symptoms GI/Abdominal: Reports: No Symptoms Genitourinary: Reports: No Symptoms Musculoskeletal: Reports: No Symptoms Skin: Reports: No Symptoms Neurological: Reports: Difficulty Walking, Weakness (right arm weakness) Psychiatric: Reports: No Symptoms ED EXAM, GENERAL - Physical Exam Exam: See Below General Appearance: Alert, WD/WN (elderly male. Slow to answer questions, but does respond.) Eye Exam: Bilateral Eye: PERRL Ears: Hearing Grossly Normal, Normal TMs Nose: Normal Inspection, Normal Mucosa Throat/Mouth: Normal Inspection, Normal Voice, No Airway Compromise Head: Atraumatic, Normocephalic Neck: Normal Inspection, Supple Respiratory/Chest: No Respiratory Distress, Lungs Clear, Normal Breath Sounds, Chest Non-Tender Cardiovascular: Normal Peripheral Pulses, Regular Rate, Rhythm, No Murmur, No Rub GI/Abdominal: Normal Bowel Sounds, Soft, Non-Tender (Male) Exam: Deferred Rectal (Males) Exam: Deferred Back Exam: Normal Inspection Extremities: No Pedal Edema, Normal Capillary Refill, Other (Note right arm weakness; NIHSS=5; able to lift right leg off bed, but drifts down slowly) Neurological: Alert, Oriented, CN II-XII Intact Skin Exam: Warm, Dry, Intact, Normal Color Lymphatic: No Adenopathy EKG INTERPRETATION EKG Date: 12/12/19 Time: 13:54 Rhythm: NSR Rate (Beats/Min): 67 [place]: Normal P-Wave: Present QRS: Normal ST-T: Normal QT: Normal Comparison: No Change (Compared to 07-27-2017 EKG study) EKG Interpretation Comments: SR with PVC noted Course - Vital Signs Text/Narrative:: 1350 Patient seen on arrival from EMS and sent directly to CT with stroke code called. 1400 Patient completely assessed by [employer]. Labs and EKG ordered. [address] report to [employer]. No acute stroke noted. Other labs pending. 1600 Remaining labs reviewed. UA neg, UDS=+THC. Discussed with patient and his son admitting for observation and repeating CT in the AM. Patient reluctant to stay in hospital. 1610 Lorena Campos contacted and Dr Daley, Interventional Neurology, advised further imaging with MRI. Patient not initially wanting to go. [employer] and patient's son discussed with patient. [employer] spoke with patient's PCP who concurs with transfer to [facility] for further workup. [address] Daley accepted the patient for direct admission and will have patient go to ER for CTA Head/Neck. Patient refuses to ride in ambulance and will only go to [facility] with his son via POV. Patient left the ER in stable condition for [facility] via POV. Last Recorded V/S: Last Vital Signs Temp 36.5 C 12/12/19 15:19 Pulse 74 12/12/19 15:19 Resp 14 12/12/19 15:19 BP 149/75 H 12/12/19 15:19 Pulse Ox 97 12/12/19 15:19 - Orders/Labs/Meds Orders: Active Orders 24 hr Category Date Time Status EKG Documentation Completion [RC] STAT Care 12/12/19 13:55 Active Oxygen Therapy [RC] ASDIRECTED Care 12/12/19 13:56 Active NPO Now [Nothing per Oral Now Diet] [DIET] Diet 12/12/19 Dinner Ordered Sodium Chloride 0.9% [Normal Saline] 1,000 ml Med 12/12/19 13:56 Active IV ONETIME Sodium Chloride 0.9% [Saline Flush] Med 12/12/19 13:54 Active 10 ml FLUSH ASDIRECTED PRN Saline Lock Insert [OM.PC] Stat Oth 12/12/19 13:55 Ordered Medication Orders Sodium Chloride (Normal Saline) 1,000 mls @ 30 mls/hr IV ONETIME ONE Stop: 12/13/19 23:15 Sodium Chloride (Saline Flush) 10 ml FLUSH ASDIRECTED PRN PRN Reason: Keep Vein Open Labs: Laboratory Tests 12/12/19 12/12/19 12/12/19 Range/Units 14:03 14:03 14:03 WBC 8.1 (4.0-10.0) x10^3/uL RBC 4.49 L (4.5-6.0) x10^6/uL Hgb 12.6 L D (14.0-18.0) g/dL Hct 37.9 L (40.0-52.0) % MCV 84.4 D (78.0-93.0) fL MCH 28.1 (26.0-32.0) pg MCHC 33.2 (32.0-36.0) g/dL RDW Coeff of Prince 14.1 (10.0-15.0) % Plt Count 180 (130-400) x10^3/uL Neut % (Auto) 72.5 (50.0-80.0) % Lymph % (Auto) 10.5 L (25.0-50.0) % Darke % (Auto) 11.0 (2.0-11.0) % Eos % (Auto) 5.8 H (0.0-4.0) % Baso % (Auto) 0.2 (0.2-1.2) % PT 10.6 (9.5-12.3) SEC INR 1.0 L (2.0-3.5) APTT 28.2 (25.6-32.8) SEC Sodium 139 (136-145) mmol/L Potassium 3.7 (3.5-5.1) mmol/L Chloride 102 (98-107) mmol/L Carbon Dioxide 24 (21-32) mmol/L Anion Gap 16.7 (10-20) mmol/L BUN 19 H (7-18) mg/dL Creatinine 1.5 H (0.70-1.30) mg/dL Est Cr Clr Drug Dosing TNP Estimated GFR (MDRD) 45 Glucose 98 (74-106) mg/dL Calcium 8.7 (8.5-10.1) mg/dL Corrected Calcium 8.94 (8.5-10.1) mg/dL Total Bilirubin 0.6 (0.2-1.0) mg/dL AST 15 (15-37) U/L ALT 12 L (16-63) U/L Alkaline Phosphatase 48 (46-116) U/L Creatine Kinase 149 (39-308) U/L POC Troponin I (0.00-0.08) ng/mL Total Protein 6.8 (6.4-8.2) g/dL Albumin 3.7 (3.4-5.0) g/dL Globulin 3.1 Albumin/Globulin Ratio 1.19 Urine Color (YELLOW) Urine Appearance (CLEAR) Urine pH (5.0-8.0) Ur Specific [place] Urine Protein (NEGATIVE) mg/dL Urine Glucose (UA) (NEGATIVE) mg/dL Urine Ketones (NEGATIVE) mg/dL Urine Occult Blood (NEGATIVE) Urine Nitrite (NEGATIVE) Urine Bilirubin (NEGATIVE) Urine Urobilinogen (0.2) EU/dL Ur Leukocyte Esterase (NEGATIVE) U Hyaline Cast (Auto) Urine RBC (NOT SEEN) /HPF Urine WBC (NOT SEEN) /HPF Ur Squamous Epith Cells (NEGATIVE) /HPF Amorphous Sediment Urine Bacteria (NEGATIVE) /HPF Urine Mucus (NEGATIVE) /LPF Urine Opiates Screen (NEAGTIVE) Ur Buprenorphine Scrn (NEGATIVE) Ur Oxycodone Screen (NEGATIVE) Ur EDDP (Meth Metab) (NEGATIVE) Urine Methadone Screen (NEGATIVE) Ur Barbiturates Screen (NEGATIVE) Ur Tricyclics Screen (NEGATIVE) Ur Phencyclidine Scrn (NEGATIVE) Ur Amphetamine Screen (NEGATIVE) U Methamphetamines Scrn (NEGATIVE) Urine MDMA Screen (NEGATIVE) U Benzodiazepines Scrn (NEGATIVE) U Cocaine Metab Screen (NEGATIVE) U Marijuana (THC) Screen (NEGATIVE) Ethyl Alcohol < 3 (0-3) mg/dL 12/12/19 12/12/19 12/12/19 Range/Units 14:17 15:35 15:35 WBC (4.0-10.0) x10^3/uL RBC (4.5-6.0) x10^6/uL Hgb (14.0-18.0) g/dL Hct (40.0-52.0) % MCV (78.0-93.0) fL MCH (26.0-32.0) pg MCHC (32.0-36.0) g/dL RDW Coeff of Prince (10.0-15.0) % Plt Count (130-400) x10^3/uL Neut % (Auto) (50.0-80.0) % Lymph % (Auto) (25.0-50.0) % Darke % (Auto) (2.0-11.0) % Eos % (Auto) (0.0-4.0) % Baso % (Auto) (0.2-1.2) % PT (9.5-12.3) SEC INR (2.0-3.5) APTT (25.6-32.8) SEC Sodium (136-145) mmol/L Potassium (3.5-5.1) mmol/L Chloride (98-107) mmol/L Carbon Dioxide (21-32) mmol/L Anion Gap (10-20) mmol/L BUN (7-18) mg/dL Creatinine (0.70-1.30) mg/dL Est Cr Clr Drug Dosing Estimated GFR (MDRD) Glucose (74-106) mg/dL Calcium (8.5-10.1) mg/dL Corrected Calcium (8.5-10.1) mg/dL Total Bilirubin (0.2-1.0) mg/dL AST (15-37) U/L ALT (16-63) U/L Alkaline Phosphatase (46-116) U/L Creatine Kinase (39-308) U/L POC Troponin I 0.01 (0.00-0.08) ng/mL Total Protein (6.4-8.2) g/dL Albumin (3.4-5.0) g/dL Globulin Albumin/Globulin Ratio Urine Color Yellow (YELLOW) Urine Appearance Clear (CLEAR) Urine pH 6.0 (5.0-8.0) Ur Specific [place] 1.025 Urine Protein 30 H (NEGATIVE) mg/dL Urine Glucose (UA) Negative (NEGATIVE) mg/dL Urine Ketones Negative (NEGATIVE) mg/dL Urine Occult Blood Negative (NEGATIVE) Urine Nitrite Negative (NEGATIVE) Urine Bilirubin Negative (NEGATIVE) Urine Urobilinogen 0.2 (0.2) EU/dL Ur Leukocyte Esterase Negative (NEGATIVE) U Hyaline Cast (Auto) Rare Urine RBC Not seen (NOT SEEN) /HPF Urine WBC 0-5 (NOT SEEN) /HPF Ur Squamous Epith Cells Not seen (NEGATIVE) /HPF Amorphous Sediment Rare Urine Bacteria Rare (NEGATIVE) /HPF Urine Mucus Rare H (NEGATIVE) /LPF Urine Opiates Screen Negative (NEAGTIVE) Ur Buprenorphine Scrn Negative (NEGATIVE) Ur Oxycodone Screen Negative (NEGATIVE) Ur EDDP (Meth Metab) Negative (NEGATIVE) Urine Methadone Screen Negative (NEGATIVE) Ur Barbiturates Screen Negative (NEGATIVE) Ur Tricyclics Screen Negative (NEGATIVE) Ur Phencyclidine Scrn Negative (NEGATIVE) Ur Amphetamine Screen Negative (NEGATIVE) U Methamphetamines Scrn Negative (NEGATIVE) Urine MDMA Screen Negative (NEGATIVE) U Benzodiazepines Scrn Negative (NEGATIVE) U Cocaine Metab Screen Negative (NEGATIVE) U Marijuana (THC) Screen Positive H (NEGATIVE) Ethyl Alcohol (0-3) mg/dL Meds: Medications Generic Name Dose Route Start Last Admin Trade Name Freq PRN Reason Stop Dose Admin Sodium Chloride 1,000 mls @ 30 mls/hr 12/12/19 13:56 Normal Saline IV 12/13/19 23:15 ONETIME ONE Sodium Chloride 10 ml 12/12/19 13:54 Saline Flush FLUSH ASDIRECTED PRN Keep Vein Open - Radiology Interpretation Free Text/Narrative:: CT Head WO=no acute findings Departure - Departure Time of Disposition: 16:30 Disposition: DC/Tfer to [facility] 02 Clinical Impression: Acute right-sided weakness, Frequent falls - Discharge Information Referrals: Max Blank, [employer] [Primary Care Provider] - Forms[facility] Sepsis Event Note (ED) - Focused Exam Vital Signs: Vital Signs Temp Pulse Resp BP Pulse Ox 12/12/19 15:19 36.5 C 74 14 149/75 H 97 - My Orders Last 24 Hours: My Active Orders 12/12/19 13:54 Sodium Chloride 0.9% [Saline Flush] 10 ml FLUSH ASDIRECTED PRN 12/12/19 13:55 EKG Documentation Completion [RC] STAT Saline Lock Insert [OM.PC] Stat 12/12/19 13:56 Oxygen Therapy [RC] ASDIRECTED Sodium Chloride 0.9% [Normal Saline] 1,000 ml IV ONETIME 12/12/19 Dinner NPO Now [Nothing per Oral Now Diet] [DIET] - Assessment/Plan Last 24 Hours: My Active Orders 12/12/19 13:54 Sodium Chloride 0.9% [Saline Flush] 10 ml FLUSH ASDIRECTED PRN 12/12/19 13:55 EKG Documentation Completion [RC] STAT Saline Lock Insert [OM.PC] Stat 12/12/19 13:56 Oxygen Therapy [RC] ASDIRECTED Sodium Chloride 0.9% [Normal Saline] 1,000 ml IV ONETIME 12/12/19 Dinner NPO Now [Nothing per Oral Now Diet] [DIET] Assessment:: 1)Right Sided Weakness 2)Frequent Falls Plan: -Transfer to [facility] ER for further eval. -Patient refuses EMS transport and will go to [facility] with his son (See refusal consent)
--- NOTE | 2019-12-12 14:17 | CT ---
[id number] CT/CT Head Stroke Protocol EXAM: CT Head Stroke Protocol CLINICAL DATA: LEFT-SIDED WEAKNESS, STROKE PROTOCOL. COMPARISON STUDY: None FINDINGS: No intracranial hemorrhage, extra-axial fluid collection, mass, or acute ischemia. Generalized parenchymal atrophy with scattered areas of nonspecific white matter disease, commonly seen as sequela of chronic microvascular ischemia. Soft tissues are unremarkable. Paranasal sinuses and mastoid air cells are clear. IMPRESSION: No acute intracranial findings. Massimo Adamson DO 12/12/19 0719 Thank you for allowing us to participate in the care of your patient.
[2019-12-12 14:27] LABS: PTT,PARTIAL THROMBOPLSTIN TIME 28.2 SEC (25.6-32.8)
[2019-12-12 14:30] LABS: ANION GAP 16.7 mmol/L (10-20); CHLORIDE,CL 102 mmol/L (98-107); SODIUM,NA 139 mmol/L (136-145)
[2019-12-12 15:49] LABS: BARBITURATE SCREEN,URINE NEGATIVE (NEGATIVE); BENZODIAZEPINES SCREEN,URINE NEGATIVE (NEGATIVE); EDDP,URINE SCREEN NEGATIVE (NEGATIVE); METHAMPHETAMINE SCREEN, URINE NEGATIVE (NEGATIVE); TCA SCREEN,URINE NEGATIVE (NEGATIVE); THC SCREEN,URINE 50 NG/ML POSITIVE (NEGATIVE)
[2019-12-12 17:26] VITALS: BP 155/99; PULSE 73
== END 2019-12-12 17:27 | disposition short-term general hospital (02) ==
LOC: VM.ED 13:52
DX: R53.1 Weakness (principal); R29.6 Repeated falls; K21.9 Gastro-esophageal reflux disease without esophagitis; I12.9 Hypertensive chronic kidney disease with stage 1 through stage 4 chronic kidney disease, or unspecified chronic kidney disease; N18.3 Chronic kidney disease, stage 3 (moderate); M10.9 Gout, unspecified; F41.9 Anxiety disorder, unspecified; F32.9 Major depressive disorder, single episode, unspecified; Z88.5 Allergy status to narcotic agent; Z88.8 Allergy status to other drugs, medicaments and biological substances; Z79.82 Long term (current) use of aspirin; Z79.899 Other long term (current) drug therapy
CPT/HCPCS: 36415; 70450; 80053; 80305-QW; 80307; 81001; 82550; 84484; 85025; 85610; 85730; 93005; 93010; 99284; 99285-25

== ENCOUNTER 2020-02-05 09:02 | Emergency (ER) | payer MEDICARE, BC ==
--- NOTE | 2020-02-05 09:47 | EDM.PDOC ---
ED HPI GENERAL MEDICAL PROBLEM - General Chief Complaint: Gastrointestinal Problem Stated Complaint: Rectal bleeding Time Seen by Provider: 02/05/20 09:02 Source of Information: Reports: Patient History Limitations: Reports: No Limitations - History of Present Illness INITIAL COMMENTS - FREE TEXT/NARRATIVE: Pt. presents to ER via EMS. Home health nurse relates that they noticed some blood in the stool after having a BM today. It sounds like it was a small amount, and it was red in color. Pt. states that he is having significant rectal/anal pain, particularly with wiping/having a BM. Pt. denies any abdominal pain. No fever or chills. Initially it was reported to EMS by home health that he was having penile pain. Pt. states that he was misunderstood, and states that the discomfort is rectal. He was discharged home from the [facility] yesterday after being hospitalized for a CVA on 12/11. Pt. is currently on plavix and aspirin 81mg daily. Pt. states that he has problems with chronic constipation. He states that he has had bloody stools in the past. Onset: Today Location: Reports: Other (rectal) Quality: Reports: Burning Associated Symptoms: Reports: Other (bloody stool) - Related Data Allergies Allergy/AdvReac Type Severity Reaction Status Date / Time duloxetine [From Cymbalta] Allergy Other Verified 02/05/20 09:18 hydrocodone AdvReac Hallucinati Verified 02/05/20 09:18 ons Home Meds: Home Meds Folic Acid 1 mg PO DAILY 07/04/13 [History] Lisinopril 40 mg PO DAILY 07/04/13 [History] allopurinoL [Zyloprim] 100 mg PO DAILY 07/04/13 [History] Mirtazapine [Remeron] 15 mg PO BEDTIME 03/04/15 [History] Pantoprazole [ProTONIX] 40 mg PO DAILY 03/04/15 [History] Sucralfate [Carafate] 1 gm PO QIDACANDBED 03/04/15 [History] Albuterol [IJD: Ventolin HFA] 2 puff INH Q6H PRN 02/24/17 [History] Ibuprofen [Advil] 600 mg PO Q6H PRN 07/23/17 [History] Gabapentin [Neurontin] 100 mg PO TID 07/27/17 [History] Venlafaxine [Effexor XR] 150 mg PO DAILY 07/27/17 [History] amLODIPine Besylate [Amlodipine Besylate] 10 mg PO DAILY 07/27/17 [History] bisacodyL [Bisacodyl] 5 - 15 mg PO QAM PRN 01/26/18 [History] carvediloL [Coreg] 25 mg PO BID 01/26/18 [History] polyethylene glycoL 3350 [MiraLAX] 1 packet PO DAILY PRN 01/26/18 [History] Aspirin/Acetaminophen/Caffeine [Excedrin Migraine Caplet] 1 - 2 tab PO Q4H PRN 12/12/19 [History] Cyclobenzaprine [Flexeril] 10 mg PO TID 12/12/19 [History] Dextran 70/Hypromellose [Genteal Tears 0.1%-0.3% Drop] 1 drop EYEBOTH TID 12/12/19 [History] Magnesium Hydroxide [Milk of Magnesia] 15 ml PO DAILY 12/12/19 [History] Oxybutynin 5 mg PO DAILY 12/12/19 [History] Past Medical History HEENT History: Reports: Hard of Hearing, Impaired Vision Cardiovascular History: Reports: High Cholesterol, Hypertension Respiratory History: Reports: None Gastrointestinal History: Reports: GERD, Other (See Below) Other Gastrointestinal History: Figueroa's esophagus, hx colon polyps, fm hx colon ca Genitourinary History: Reports: BPH, Chronic Renal Insuffiency, Renal Calculus, Renal Disease Other Genitourinary History: CKD III Musculoskeletal History: Reports: Connective Tissue Disease, Gout Other Musculoskeletal History: R hip FX, surgery on back, chronic fatigue Neurological History: Reports: Other (See Below) Other Neuro History: Wernicke encephalopathy Psychiatric History: Reports: Addiction, Anxiety, Depression, Other (See Below) Other Psychiatric History: Dementia Endocrine/Metabolic History: Reports: Other (See Below) Other Endocrine/Metabolic History: spinal stenosis lumbar Hematologic History: Reports: B12 Deficiency, Other (See Below) Other Hematologic History: hypokalemia. mypomagnesemia Immunologic History: Reports: None Oncologic (Cancer) History: Reports: None - Past Surgical History Head Surgeries/Procedures: Reports: None HEENT Surgical History: Reports: Other (See Below) Other HEENT Surgeries/Procedures: Bevacizumab injection GI Surgical History: Reports: Colonoscopy, Hernia Repair/Other Male Surgical History: Reports: Renal Calculus Neurological Surgical History: Reports: Lumbar Spine Musculoskeletal Surgical History: Reports: Other (See Below) Other Musculoskeletal Surgeries/Procedures:: ORIF right hip Social & Family History - Family History Family Medical History: Unobtainable Oncologic: Reports: Breast, Colon - Caffeine Use Caffeine Use: Reports: Tea - Living Situation & Occupation Living situation: Reports: , Alone, Other ( intermediate alzheimer's) ED ROS GENERAL - Review of Systems Review Of Systems: See Below Constitutional: Reports: No Symptoms HEENT: Reports: No Symptoms Respiratory: Reports: No Symptoms Cardiovascular: Reports: No Symptoms Endocrine: Reports: No Symptoms GI/Abdominal: Reports: Bloody Stool, Constipation. Denies: Abdominal Pain, Diarrhea, Hematemesis, Hematochezia, Melena : Reports: No Symptoms Musculoskeletal: Reports: No Symptoms Skin: Reports: No Symptoms Neurological: Reports: No Symptoms Psychiatric: Reports: No Symptoms Hematologic/Lymphatic: Reports: No Symptoms Immunologic: Reports: No Symptoms ED EXAM, GENERAL - Physical Exam Exam: See Below Exam Limited By: No Limitations General Appearance: Alert, WD/WN, No Apparent Distress Head: Atraumatic, Normocephalic Respiratory/Chest: No Respiratory Distress, Lungs Clear, Normal Breath Sounds, No Accessory Muscle Use, Chest Non-Tender Cardiovascular: Normal Peripheral Pulses, Regular Rate, Rhythm, No Edema, No Gallop, No Rub Peripheral Pulses: 4+: Radial (L) GI/Abdominal: Normal Bowel Sounds, Soft, Non-Tender, No Organomegaly, No Distention, No Mass (Male) Exam: Deferred Rectal (Males) Exam: Other (Perianal area is erythematous and weeping bloody serosanguinous blood. Pt. also has numerous internal and external hemorrhoids that are bloody. No large amount of blood in the stool. No graciela blood noted. Cause of bleeding appears to be from hemorrhoids.) Extremities: Normal Inspection, Normal Range of Motion, Non-Tender, No Pedal Edema, Normal Capillary Refill Neurological: Alert, Oriented, CN II-XII Intact, Normal Cognition, Normal Gait, Normal Reflexes, No Motor/Sensory Deficits Psychiatric: Normal Affect, Normal Mood Skin Exam: Warm, Dry, Intact, Normal Color, No Rash Course - Vital Signs Last Recorded V/S: Last Vital Signs Temp 37.2 C 02/05/20 09:15 Pulse 83 02/05/20 09:15 Resp 14 02/05/20 09:15 BP 153/76 H 02/05/20 09:15 Pulse Ox 96 02/05/20 09:15 - Orders/Labs/Meds Labs: Laboratory Tests 02/05/20 02/05/20 02/05/20 Range/Units 09:24 09:24 09:24 WBC 11.0 H (4.0-10.0) x10^3/uL RBC 4.36 L (4.5-6.0) x10^6/uL Hgb 12.1 L (14.0-18.0) g/dL Hct 37.0 L (40.0-52.0) % MCV 84.9 (78.0-93.0) fL MCH 27.8 (26.0-32.0) pg MCHC 32.7 (32.0-36.0) g/dL RDW Coeff of Prince 14.9 (10.0-15.0) % Plt Count 210 (130-400) x10^3/uL Add Manual Diff Yes Neutrophils % (Manual) 71 (50-80) % Band Neutrophils % 6 (0-6) % Lymphocytes % (Manual) 15 L (25-50) % Monocytes % (Manual) 3 (2-11) % Eosinophils % (Manual) 4 (0-4) % Basophils % (Manual) 1 (0-1) % Platelet Estimate Adequate PT 10.2 (9.5-12.3) SEC INR 0.9 L (2.0-3.5) Sodium 140 (136-145) mmol/L Potassium 4.4 (3.5-5.1) mmol/L Chloride 107 (98-107) mmol/L Carbon Dioxide 23 (21-32) mmol/L Anion Gap 14.4 (10-20) mmol/L BUN 32 H (7-18) mg/dL Creatinine 1.7 H (0.70-1.30) mg/dL Est Cr Clr Drug Dosing TNP Estimated GFR (MDRD) 39 Glucose 102 (74-106) mg/dL Calcium 9.0 (8.5-10.1) mg/dL Corrected Calcium 9.24 (8.5-10.1) mg/dL Total Bilirubin 0.3 (0.2-1.0) mg/dL AST 12 L (15-37) U/L ALT 18 (16-63) U/L Alkaline Phosphatase 61 (46-116) U/L Total Protein 6.8 (6.4-8.2) g/dL Albumin 3.7 (3.4-5.0) g/dL Globulin 3.1 Albumin/Globulin Ratio 1.19 Departure - Departure Time of Disposition: 11:30 Disposition: Home, Self-Care 01 Clinical Impression: Hemorrhoids - Discharge Information Instructions: Hemorrhoids, [id number], Hydrocortisone rectal cream Referrals: Max Blank NP [Primary Care Provider] - Forms: ED Department Discharge Additional Instructions: Anusol cream 2.5% cream Apply QID and after every stool to rectal area Follow-up in clinic in 7-10 days Continue with current medications. Increase your intake of fluids - Problem List Review Problem List Initiated/Reviewed/Updated: Yes - Assessment/Plan Plan: Anusol cream 2.5% cream Apply QID and after every stool to rectal area Follow-up in clinic in 7-10 days Continue with current medications. Increase your intake of fluids
[2020-02-05 09:50] LABS: ANION GAP 14.4 mmol/L (10-20); CHLORIDE,CL 107 mmol/L (98-107); SODIUM,NA 140 mmol/L (136-145)
[2020-02-05 09:55] VITALS: BP 153/76; PULSE 83
== END 2020-02-05 10:38 | disposition home or self-care (01) ==
LOC: VM.ED 09:02
DX: K64.8 Other hemorrhoids (principal); K64.4 Residual hemorrhoidal skin tags; K21.9 Gastro-esophageal reflux disease without esophagitis; I12.9 Hypertensive chronic kidney disease with stage 1 through stage 4 chronic kidney disease, or unspecified chronic kidney disease; N18.30 Chronic kidney disease, stage 3 unspecified; F32.9 Major depressive disorder, single episode, unspecified; F41.9 Anxiety disorder, unspecified; Z88.5 Allergy status to narcotic agent; Z88.8 Allergy status to other drugs, medicaments and biological substances; Z79.82 Long term (current) use of aspirin; Z79.899 Other long term (current) drug therapy; Z79.02 Long term (current) use of antithrombotics/antiplatelets
CPT/HCPCS: 36415; 80053; 85025; 85610; 99283; 99285

== ENCOUNTER 2020-04-19 16:45 | Inpatient (IN) | payer MEDICARE, BC ==
[2020-04-19] MEDS ORDERED: Sodium Chloride 0.9% 10 ML Syringe FLUSH PRN (16:51)
--- NOTE | 2020-04-19 17:16 | EDM.PDOC ---
ED HPI GENERAL MEDICAL PROBLEM - General Stated Complaint: DEHYDRATION Time Seen by Provider: 04/19/20 16:45 Source of Information: Reports: Family History Limitations: Reports: No Limitations - History of Present Illness INITIAL COMMENTS - FREE TEXT/NARRATIVE: Pt. presents to ER via son who lives in [place]. Son states that the patient has been experiencing increased weakness, confusion, restlessness over the past several days. Son states that he last saw the patient in Wednesday. At that time, he was thought to be weak and having trouble ambulating. Son states that he has a caregiver than looks in on him once a day, and she states that the patient has been declining throughout the week. Son states that he doesn't think the patient has been eating or drinking adequately. Son is really unable to offer more information, and patient is not answering questions when asked. He offers no complaint when asked. Pt. was seen in this ER and transferred to [facility] in [place] following a fall with R sided weakness. He was found to have bilateral lacunar infarct and was evaluated by interventional neurology. No intervention was warranted. He was started on plavix and aspirin. [facility] was [facility] to [facility] in [place] for [facility]hab. He did well in rehab and was discharged home on . Son states that on Wednesday, pt. complained of increased weakness and inability to grasp his walker with his R hand. Onset Date: 04/14/20 Location: Reports: Generalized - Related Data Allergies Allergy/AdvReac Type Severity Reaction Status Date / Time duloxetine [From Cymbalta] Allergy Other Verified 04/19/20 17:34 hydrocodone AdvReac Hallucinati Verified 04/19/20 17:34 ons Home Meds: Home Meds Folic Acid 1 mg PO DAILY 07/04/13 [History] Lisinopril 40 mg PO DAILY 07/04/13 [History] allopurinoL [Zyloprim] 100 mg PO DAILY 07/04/13 [History] Mirtazapine [Remeron] 1.5 tab PO BEDTIME 03/04/15 [History] Pantoprazole [ProTONIX] 40 mg PO DAILY 03/04/15 [History] Sucralfate [Carafate] 1 gm PO QIDACANDBED 03/04/15 [History] Albuterol [IJD: Ventolin HFA] 2 puff INH Q6H PRN 02/24/17 [History] Ibuprofen [Advil] 600 mg PO Q6H PRN 07/23/17 [History] Gabapentin [Neurontin] 100 mg PO TID 07/27/17 [History] Venlafaxine [Effexor XR] 150 mg PO DAILY 07/27/17 [History] amLODIPine Besylate [Amlodipine Besylate] 10 mg PO DAILY 07/27/17 [History] bisacodyL [Bisacodyl] 5 - 15 mg PO QAM PRN 01/26/18 [History] carvediloL [Coreg] 25 mg PO BID 01/26/18 [History] Dextran 70/Hypromellose [Genteal Tears 0.1%-0.3% Drop] 1 drop EYEBOTH TID 12/12/19 [History] Magnesium Hydroxide [Milk of Magnesia] 15 ml PO DAILY PRN 12/12/19 [History] Acetaminophen [Tylenol] 650 mg PO Q4H PRN 04/19/20 [History] Aspirin 81 mg PO DAILY 04/19/20 [History] Cholecalciferol (Vitamin D3) [Vitamin D3] 2,000 unit PO DAILY 04/19/20 [History] Clopidogrel Bisulfate [Plavix] 75 mg PO DAILY 04/19/20 [History] Hydrocortisone [Hydrocortisone 2.5% Crm] 30 gm TOP BID 04/19/20 [History] Sennosides/Docusate Sodium [Senna-S 8.6-50 mg Tablet] 2 each PO BID 04/19/20 [History] Past Medical History HEENT History: Reports: Hard of Hearing, Impaired Vision Cardiovascular History: Reports: High Cholesterol, Hypertension Respiratory History: Reports: None Gastrointestinal History: Reports: GERD, Other (See Below) Other Gastrointestinal History: Figueroa's esophagus, hx colon polyps, fm hx colon ca Genitourinary History: Reports: BPH, Chronic Renal Insuffiency, Renal Calculus, Renal Disease Other Genitourinary History: CKD III Musculoskeletal History: Reports: Connective Tissue Disease, Gout Other Musculoskeletal History: R hip FX, surgery on back, chronic fatigue Neurological History: Reports: Other (See Below) Other Neuro History: Wernicke encephalopathy Psychiatric History: Reports: Addiction, Anxiety, Depression, Other (See Below) Other Psychiatric History: Dementia Endocrine/Metabolic History: Reports: Other (See Below) Other Endocrine/Metabolic History: spinal stenosis lumbar Hematologic History: Reports: B12 Deficiency, Other (See Below) Other Hematologic History: hypokalemia. mypomagnesemia Immunologic History: Reports: None Oncologic (Cancer) History: Reports: None - Past Surgical History Head Surgeries/Procedures: Reports: None HEENT Surgical History: Reports: Other (See Below) Other HEENT Surgeries/Procedures: Bevacizumab injection GI Surgical History: Reports: Colonoscopy, Hernia Repair/Other Male Surgical History: Reports: Renal Calculus Neurological Surgical History: Reports: Lumbar Spine Musculoskeletal Surgical History: Reports: Other (See Below) Other Musculoskeletal Surgeries/Procedures:: ORIF right hip Social & Family History - Family History Family Medical History: Unobtainable Oncologic: Reports: Breast, Colon - Caffeine Use Caffeine Use: Reports: Tea - Living Situation & Occupation Living situation: Reports: , Alone, Other ( [facility]) ED ROS GENERAL - Review of Systems Review Of Systems: Unable To Obtain Reason Not Obtained: decreased LOC ED EXAM, GENERAL - Physical Exam Exam: See Below Exam Limited By: No Limitations General Appearance: Alert, WD/WN, No Apparent Distress Throat/Mouth: Normal Lips, Normal Teeth, No Airway Compromise, Other (oropharynx is dry) Head: Atraumatic, Normocephalic Neck: Normal Inspection, Supple, Non-Tender, Full Range of Motion Respiratory/Chest: No Respiratory Distress, No Accessory Muscle Use, Chest Non- Tender, Decreased Breath Sounds Cardiovascular: Normal Peripheral Pulses, Regular Rate, Rhythm, No Edema, No Gallop, No JVD GI/Abdominal: Soft, Non-Tender, No Distention, No Mass (Male) Exam: No Hernia, Normal Inspection Course - Vital Signs Last Recorded V/S: Last Vital Signs Temp 36.4 C 04/19/20 18:36 Pulse 107 H 04/19/20 18:36 Resp 20 04/19/20 18:36 BP 146/98 H 04/19/20 18:36 Pulse Ox 99 04/19/20 18:36 - Orders/Labs/Meds Orders: Active Orders 24 hr Category Date Time Status EKG Documentation Completion [RC] STAT Care 04/19/20 16:52 Active CULTURE BLOOD [BC] Stat Lab 04/19/20 17:41 Received CULTURE BLOOD [BC] Stat Lab 04/19/20 17:45 Received Sodium Chloride 0.9% [Normal Saline] 1,000 ml Med 04/19/20 20:00 Active IV ASDIRECTED Sodium Chloride 0.9% [Saline Flush] Med 04/19/20 16:51 Active 10 ml FLUSH ASDIRECTED PRN Blood Culture x2 Reflex Set [OM.PC] Stat Oth 04/19/20 16:53 Ordered Peripheral IV Insertion Adult [OM.PC] Routine Oth 04/19/20 16:53 Ordered Medication Orders Sodium Chloride (Normal Saline) 1,000 mls @ 250 mls/hr IV ASDIRECTED MELISSA Last Admin: 04/19/20 20:00 Dose: 250 mls/hr Documented by: Sodium Chloride (Saline Flush) 10 ml FLUSH ASDIRECTED PRN PRN Reason: Keep Vein Open Labs: Laboratory Tests 04/19/20 04/19/20 04/19/20 Range/Units 16:58 17:08 17:08 WBC (4.0-10.0) x10^3/uL RBC (4.5-6.0) x10^6/uL Hgb (14.0-18.0) g/dL Hct (40.0-52.0) % MCV (78.0-93.0) fL MCH (26.0-32.0) pg MCHC (32.0-36.0) g/dL RDW Coeff of [place] (10.0-15.0) % Plt Count (130-400) x10^3/uL Neut % (Auto) (50.0-80.0) % Lymph % (Auto) (25.0-50.0) % [place] % (Auto) (2.0-11.0) % Eos % (Auto) (0.0-4.0) % Baso % (Auto) (0.2-1.2) % PT (9.5-12.3) SEC INR (2.0-3.5) APTT (25.6-32.8) SEC Sodium (136-145) mmol/L Potassium (3.5-5.1) mmol/L Chloride (98-107) mmol/L Carbon Dioxide (21-32) mmol/L Anion Gap (5-15) mmol/L BUN (7-18) mg/dL Creatinine (0.70-1.30) mg/dL Est Cr Clr Drug Dosing Estimated GFR (MDRD) Glucose (74-106) mg/dL Lactic Acid (0.4-2.0) mmol/L Calcium (8.5-10.1) mg/dL Corrected Calcium (8.5-10.1) mg/dL Magnesium (1.8-2.4) mg/dL Total Bilirubin (0.2-1.0) mg/dL AST (15-37) U/L ALT (16-63) U/L Alkaline Phosphatase (46-116) U/L Troponin I (<=0.056) ng/mL C-Reactive Protein (<=0.9) mg/dL Total Protein (6.4-8.2) g/dL Albumin (3.4-5.0) g/dL Globulin Albumin/Globulin Ratio TSH, Ultra Sensitive (0.358-3.74) uIU/mL Urine Color Yellow (YELLOW) Urine Appearance Clear (CLEAR) Urine pH 5.5 (5.0-8.0) Ur Specific [place] 1.025 Urine Protein >=300 H (NEGATIVE) mg/dL Urine Glucose (UA) Negative (NEGATIVE) mg/dL Urine Ketones Negative (NEGATIVE) mg/dL Urine Occult Blood Moderate H (NEGATIVE) Urine Nitrite Negative (NEGATIVE) Urine Bilirubin Small H (NEGATIVE) Urine Urobilinogen 0.2 (0.2) EU/dL Ur Leukocyte Esterase Negative (NEGATIVE) U Hyaline Cast (Auto) Moderate Urine RBC 5-10 H (NOT SEEN) /HPF Urine WBC 0-5 (NOT SEEN) /HPF Ur Squamous Epith Cells Rare (NEGATIVE) /HPF Urine Bacteria Not seen (NEGATIVE) /HPF Urine Mucus Few H (NEGATIVE) /LPF Urine Opiates Screen Negative (NEAGTIVE) Ur Buprenorphine Scrn Negative (NEGATIVE) Ur Oxycodone Screen Negative (NEGATIVE) Ur EDDP (Meth Metab) Negative (NEGATIVE) Urine Methadone Screen Negative (NEGATIVE) Ur Barbiturates Screen Negative (NEGATIVE) Ur Tricyclics Screen Negative (NEGATIVE) Ur Phencyclidine Scrn Negative (NEGATIVE) Ur Amphetamine Screen Negative (NEGATIVE) U Methamphetamines Scrn Negative (NEGATIVE) Urine MDMA Screen Negative (NEGATIVE) U Benzodiazepines Scrn Negative (NEGATIVE) U Cocaine Metab Screen Negative (NEGATIVE) U Marijuana (THC) Screen Positive H (NEGATIVE) Ethyl Alcohol (0-3) mg/dL SARS CoV-2 RNA Rapid SAMM Negative (NEGATIVE) 04/19/20 04/19/20 04/19/20 Range/Units 17:41 17:41 17:41 WBC 11.3 H (4.0-10.0) x10^3/uL RBC 4.72 (4.5-6.0) x10^6/uL Hgb 12.9 L (14.0-18.0) g/dL Hct 39.4 L (40.0-52.0) % MCV 83.5 (78.0-93.0) fL MCH 27.3 (26.0-32.0) pg MCHC 32.7 (32.0-36.0) g/dL RDW Coeff of [place] 16.2 H (10.0-15.0) % Plt Count 286 D (130-400) x10^3/uL Neut % (Auto) 76.0 (50.0-80.0) % Lymph % (Auto) 10.8 L (25.0-50.0) % [place] % (Auto) 12.4 H (2.0-11.0) % Eos % (Auto) 0.5 (0.0-4.0) % Baso % (Auto) 0.3 (0.2-1.2) % PT 10.7 (9.5-12.3) SEC INR 1.0 L (2.0-3.5) APTT (25.6-32.8) SEC Sodium 148 H (136-145) mmol/L Potassium 3.9 (3.5-5.1) mmol/L Chloride 110 H (98-107) mmol/L Carbon Dioxide 22 (21-32) mmol/L Anion Gap 19.9 H (5-15) mmol/L BUN 29 H (7-18) mg/dL Creatinine 1.4 H (0.70-1.30) mg/dL Est Cr Clr Drug Dosing TNP Estimated GFR (MDRD) 49 Glucose 117 H (74-106) mg/dL Lactic Acid (0.4-2.0) mmol/L Calcium 9.5 (8.5-10.1) mg/dL Corrected Calcium 9.26 (8.5-10.1) mg/dL Magnesium 1.9 (1.8-2.4) mg/dL Total Bilirubin 0.6 (0.2-1.0) mg/dL AST 21 (15-37) U/L ALT 15 L (16-63) U/L Alkaline Phosphatase 69 (46-116) U/L Troponin I 0.056 (<=0.056) ng/mL C-Reactive Protein 1.9 H (<=0.9) mg/dL Total Protein 8.2 (6.4-8.2) g/dL Albumin 4.3 (3.4-5.0) g/dL Globulin 3.9 Albumin/Globulin Ratio 1.10 TSH, Ultra Sensitive 0.479 (0.358-3.74) uIU/mL Urine Color (YELLOW) Urine Appearance (CLEAR) Urine pH (5.0-8.0) Ur Specific [place] Urine Protein (NEGATIVE) mg/dL Urine Glucose (UA) (NEGATIVE) mg/dL Urine Ketones (NEGATIVE) mg/dL Urine Occult Blood (NEGATIVE) Urine Nitrite (NEGATIVE) Urine Bilirubin (NEGATIVE) Urine Urobilinogen (0.2) EU/dL Ur Leukocyte Esterase (NEGATIVE) U Hyaline Cast (Auto) Urine RBC (NOT SEEN) /HPF Urine WBC (NOT SEEN) /HPF Ur Squamous Epith Cells (NEGATIVE) /HPF Urine Bacteria (NEGATIVE) /HPF Urine Mucus (NEGATIVE) /LPF Urine Opiates Screen (NEAGTIVE) Ur Buprenorphine Scrn (NEGATIVE) Ur Oxycodone Screen (NEGATIVE) Ur EDDP (Meth Metab) (NEGATIVE) Urine Methadone Screen (NEGATIVE) Ur Barbiturates Screen (NEGATIVE) Ur Tricyclics Screen (NEGATIVE) Ur Phencyclidine Scrn (NEGATIVE) Ur Amphetamine Screen (NEGATIVE) U Methamphetamines Scrn (NEGATIVE) Urine MDMA Screen (NEGATIVE) U Benzodiazepines Scrn (NEGATIVE) U Cocaine Metab Screen (NEGATIVE) U Marijuana (THC) Screen (NEGATIVE) Ethyl Alcohol < 3 (0-3) mg/dL SARS CoV-2 RNA Rapid SAMM (NEGATIVE) 04/19/20 04/19/20 Range/Units 17:41 17:41 WBC (4.0-10.0) x10^3/uL RBC (4.5-6.0) x10^6/uL Hgb (14.0-18.0) g/dL Hct (40.0-52.0) % MCV (78.0-93.0) fL MCH (26.0-32.0) pg MCHC (32.0-36.0) g/dL RDW Coeff of [place] (10.0-15.0) % Plt Count (130-400) x10^3/uL Neut % (Auto) (50.0-80.0) % Lymph % (Auto) (25.0-50.0) % [place] % (Auto) (2.0-11.0) % Eos % (Auto) (0.0-4.0) % Baso % (Auto) (0.2-1.2) % PT (9.5-12.3) SEC INR (2.0-3.5) APTT 27.7 (25.6-32.8) SEC Sodium (136-145) mmol/L Potassium (3.5-5.1) mmol/L Chloride (98-107) mmol/L Carbon Dioxide (21-32) mmol/L Anion Gap (5-15) mmol/L BUN (7-18) mg/dL Creatinine (0.70-1.30) mg/dL Est Cr Clr Drug Dosing Estimated GFR (MDRD) Glucose (74-106) mg/dL Lactic Acid 1.5 (0.4-2.0) mmol/L Calcium (8.5-10.1) mg/dL Corrected Calcium (8.5-10.1) mg/dL Magnesium (1.8-2.4) mg/dL Total Bilirubin (0.2-1.0) mg/dL AST (15-37) U/L ALT (16-63) U/L Alkaline Phosphatase (46-116) U/L Troponin I (<=0.056) ng/mL C-Reactive Protein (<=0.9) mg/dL Total Protein (6.4-8.2) g/dL Albumin (3.4-5.0) g/dL Globulin Albumin/Globulin Ratio TSH, Ultra Sensitive (0.358-3.74) uIU/mL Urine Color (YELLOW) Urine Appearance (CLEAR) Urine pH (5.0-8.0) Ur Specific [place] Urine Protein (NEGATIVE) mg/dL Urine Glucose (UA) (NEGATIVE) mg/dL Urine Ketones (NEGATIVE) mg/dL Urine Occult Blood (NEGATIVE) Urine Nitrite (NEGATIVE) Urine Bilirubin (NEGATIVE) Urine Urobilinogen (0.2) EU/dL Ur Leukocyte Esterase (NEGATIVE) U Hyaline Cast (Auto) Urine RBC (NOT SEEN) /HPF Urine WBC (NOT SEEN) /HPF Ur Squamous Epith Cells (NEGATIVE) /HPF Urine Bacteria (NEGATIVE) /HPF Urine Mucus (NEGATIVE) /LPF Urine Opiates Screen (NEAGTIVE) Ur Buprenorphine Scrn (NEGATIVE) Ur Oxycodone Screen (NEGATIVE) Ur EDDP (Meth Metab) (NEGATIVE) Urine Methadone Screen (NEGATIVE) Ur Barbiturates Screen (NEGATIVE) Ur Tricyclics Screen (NEGATIVE) Ur Phencyclidine Scrn (NEGATIVE) Ur Amphetamine Screen (NEGATIVE) U Methamphetamines Scrn (NEGATIVE) Urine MDMA Screen (NEGATIVE) U Benzodiazepines Scrn (NEGATIVE) U Cocaine Metab Screen (NEGATIVE) U Marijuana (THC) Screen (NEGATIVE) Ethyl Alcohol (0-3) mg/dL SARS CoV-2 RNA Rapid SAMM (NEGATIVE) Meds: Medications Generic Name Dose Route Start Last Admin Trade Name Freq PRN Reason Stop Dose Admin Sodium Chloride 1,000 mls @ 250 mls/hr 04/19/20 20:00 04/19/20 20:00 Normal Saline IV 250 mls/hr ASDIRECTED MELISSA Administration Sodium Chloride 10 ml 04/19/20 16:51 Saline Flush FLUSH ASDIRECTED PRN Keep Vein Open Discontinued Medications Generic Name Dose Route Start Last Admin Trade Name Freq PRN Reason Stop Dose Admin Lorazepam 1 mg 04/19/20 18:37 04/19/20 18:41 Ativan IVPUSH 04/19/20 18:38 1 mg STAT ONE Administration Departure - Departure Time of Disposition: 20:06 Disposition: Admitted As Inpatient 64 Clinical Impression: Altered mental status, Dehydration - Discharge Information Sepsis Event Note (ED) - Focused Exam Vital Signs: Vital Signs Temp Pulse Resp BP Pulse Ox 04/19/20 18:36 36.4 C 107 H 20 146/98 H 99 04/19/20 16:45 36.2 C 89 18 143/102 H 100 - Problem List Review Problem List Initiated/Reviewed/Updated: Yes - My Orders Last 24 Hours: My Active Orders 04/19/20 16:51 Sodium Chloride 0.9% [Saline Flush] 10 ml FLUSH ASDIRECTED PRN 04/19/20 16:52 EKG Documentation Completion [RC] STAT 04/19/20 16:53 Blood Culture x2 Reflex Set [OM.PC] Stat Peripheral IV Insertion Adult [OM.PC] Routine 04/19/20 17:41 CULTURE BLOOD [BC] Stat 04/19/20 17:45 CULTURE BLOOD [BC] Stat 04/19/20 20:00 Sodium Chloride 0.9% [Normal Saline] 1,000 ml IV ASDIRECTED - Assessment/Plan Admission H&P: Please use this note as an admission H&P Last 24 Hours: My Active Orders 04/19/20 16:51 Sodium Chloride 0.9% [Saline Flush] 10 ml FLUSH ASDIRECTED PRN 04/19/20 16:52 EKG Documentation Completion [RC] STAT 04/19/20 16:53 Blood Culture x2 Reflex Set [OM.PC] Stat Peripheral IV Insertion Adult [OM.PC] Routine 04/19/20 17:41 CULTURE BLOOD [BC] Stat 04/19/20 17:45 CULTURE BLOOD [BC] Stat 04/19/20 20:00 Sodium Chloride 0.9% [Normal Saline] 1,000 ml IV ASDIRECTED Plan: No obvious source of mental status change noted during evaluation in ER. He will be admitted acutely, [facility]. Code status is 1. Will start hydrating the patient. He is quite dehydrated. Pt. son states that, overall, he has not been doing very well since he had his stroke last fall, but there has been a major decrease in his function over the past 5-6 days. Cerebrovascular disease could very likely be the cause. He will not be transferred, as the onset of symptoms are unknown. Will trend troponin and lactic acid tonight. Anticipate several day stay. PT, social work, and OT evaluation on Wednesday to determine his discharge plan.
[2020-04-19 17:19] LABS: BARBITURATE SCREEN,URINE NEGATIVE (NEGATIVE); BENZODIAZEPINES SCREEN,URINE NEGATIVE (NEGATIVE); EDDP,URINE SCREEN NEGATIVE (NEGATIVE); METHAMPHETAMINE SCREEN, URINE NEGATIVE (NEGATIVE)
[2020-04-19 17:20] LABS: TCA SCREEN,URINE NEGATIVE (NEGATIVE); THC SCREEN,URINE 50 NG/ML POSITIVE (NEGATIVE)
--- NOTE | 2020-04-19 17:55 | CT ---
[id number] CT/CT Head WO IV EXAM: CT Head WO IV CLINICAL DATA: CHANGE IN MENTAL STATUS COMPARISON: CORRELATION IS MADE WITH 2019 FINDINGS: There is motion artifact There is no mass or mass effect. There is no hemorrhage or hydrocephalus. There are no extra-axial fluid collections. There are no sites of abnormal attenuation. IMPRESSION: NO PLAIN CT EVIDENCE OF ACUTE INTRACRANIAL PROCESS. Gelacio Burnett MD 04/19/20 [id number] Thank you for allowing us to participate in the care of your patient.
--- NOTE | 2020-04-19 17:57 | CR ---
[id number] RAD/RAD Chest PA or AP 1V EXAM: SINGLE VIEW CHEST. INDICATION: WEAKNESS COMPARISON: CORRELATION IS MADE WITH JULY 27, 2017 FINDINGS: The lungs are clear The cardiac silhouette is stable A loop port is seen IMPRESSION: NO ACUTE PROCESS Gelacio Burnett MD 04/19/20 [id number] Thank you for allowing us to participate in the care of your patient.
[2020-04-19 18:28] LABS: CHLORIDE,CL 110 mmol/L (98-107); SODIUM,NA 148 mmol/L (136-145)
[2020-04-19 18:29] LABS: ANION GAP 19.9 mmol/L (5-15)
[2020-04-19] MEDS ORDERED: LORazepam 2 MG/ML SDV IVPUSH ONE (18:37)
--- NOTE | 2020-04-19 19:37 | CT ---
[id number] CT/CT Chest Abdomen Pelvis W IV Exam: CT Chest Abdomen Pelvis W IV Clinical Data: ELEVATED WHITE BLOOD CELL COUNT ABDOMINAL PAIN COMPARISON: CORRELATION IS MADE WITH MARCH 30, 2017 FINDINGS: There appears to be a nonradiopaque gallstone or polyp in the gallbladder lumen The gallbladder is not distended. The liver and spleen, kidneys and adrenals, pancreas and aorta show no acute abnormalities There is no free fluid or free air There is no abscess or bowel distention There is no evidence of appendicitis There is no pulmonary parenchymal infiltrate, pleural effusion, or mediastinal pathology identified The great vessels appear to be intact There is motion artifact There is a small cyst involving the left lobe of the liver IMPRESSION: NO SOURCE OF INFECTION NO ABNORMALITY TO EXPLAIN ABDOMINAL PAIN Gelacio Burnett MD 04/19/20 [id number] Thank you for allowing us to participate in the care of your patient.
[2020-04-19] MEDS ORDERED: Sodium Chloride 0.9% 1,000 ML IV SCH (20:00)
[2020-04-20] MEDS ORDERED: Flumazenil 0.1 MG/ML 5 ML MDV IVPUSH PRN (02:55)
[2020-04-20] MEDS ORDERED: Sodium Chloride 0.9% 1,000 ML IV SCH (03:00)
[2020-04-20] MEDS: LORazepam 2 MG/ML SDV IVPUSH PRN ×2 (03:37→07:57)
[2020-04-20] MEDS ORDERED: Magnesium Hydroxide 400 MG/5 ML Susp 30 ML Cup PO PRN (07:17)
[2020-04-20] MEDS ORDERED: Bisacodyl 10 MG Supp RECTAL PRN (07:17)
[2020-04-20] MEDS ORDERED: Acetaminophen 325 MG Tab PO PRN (07:17)
[2020-04-20] MEDS ORDERED: Albuterol HFA 18 Gm Inhaler INH PRN (07:17)
[2020-04-20] MEDS ORDERED: Folic Acid 1 MG Tab PO SCH (08:00)
[2020-04-20] MEDS ORDERED: Clopidogrel 75 MG Tab PO SCH (08:00)
[2020-04-20] MEDS ORDERED: Allopurinol 100 MG Tab PO SCH (08:00)
[2020-04-20] MEDS ORDERED: Venlafaxine 150 MG Cap.ER PO SCH (08:00)
[2020-04-20] MEDS ORDERED: Hypromellose 0.3% Ophth Soln 15 ML Bottle EYEBOTH SCH (08:00)
[2020-04-20] MEDS ORDERED: amLODIPine 10 MG Tab PO SCH (08:00)
[2020-04-20] MEDS ORDERED: Aspirin 81 MG Tab.Chew PO SCH (08:00)
[2020-04-20] MEDS ORDERED: Gabapentin 100 MG Cap PO SCH (08:00)
[2020-04-20] MEDS ORDERED: Pantoprazole 40 MG Tab.CR PO SCH (08:00)
[2020-04-20] MEDS ORDERED: Carvedilol 25 MG Tab PO SCH (08:00)
[2020-04-20] MEDS ORDERED: Lisinopril 20 MG Tab PO SCH (08:00)
[2020-04-20 08:25] LABS: ANION GAP 20.6 mmol/L (5-15)
[2020-04-20 10:27] VITALS: BP 160/80; PULSE 90
[2020-04-20] MEDS ORDERED: Sucralfate 1 GM Tab PO SCH (11:00)
--- NOTE | 2020-04-20 15:03 | DISCH ---
ADMITTING DIAGNOSES: 1. Altered mental status. 2. Dehydration. DISCHARGE DIAGNOSES: 1. Altered mental status. 2. Leukocytosis. 3. Fevers. 4. Dehydration. 5. Marijuana use. HISTORY OF PRESENT ILLNESS: An 79-year-old male patient who was admitted to the acute care floor at [facility] last evening for the above diagnoses. On today's exam, the patient continues to be slightly obtunded. The patient is very restless and fidgety. The patient has garbled speech. The patient has known cerebral infarct from a couple of months ago. On admission, the patient's CT scan was normal. Overnight, the patient has developed fevers ranging anywhere from 100 to 103. The patient is not cooperative. The patient appears to be quite delirious. The patient is unable to answer questions due to his current condition. Nursing staff state he has progressively gotten worse since admission. The patient's initial workup did not show any obvious etiology for his current symptoms. The patient is known to smoke marijuana on a daily basis. BRIEF HOSPITAL COURSE: The patient remained hemodynamically stable. The patient did develop fevers overnight. The patient's symptoms appear to be worsening. The patient was gently rehydrated with IV fluids. The patient's white blood cell count continues to rise. Exact etiology of the patient's current condition is unknown, therefore necessitating transfer to a higher level of care. CONSULTATION: Social Work. ACTIVITY: Bedrest. DIET: 2 g sodium, heart healthy. REVIEW OF SYSTEMS: Unable to obtain secondary to patient's condition. PHYSICAL ASSESSMENT: Vital Signs: Temperature 100.6, pulse 90, blood pressure 160/80, respirations 20, oxygen saturation 97% on room air. Height 5 feet 7 inches, weight 158 pounds. Skin: Intact, warm and dry. Respiratory: Lungs are diminished, but clear. Cardiovascular: Regular rate and rhythm, no murmur. Abdomen: Soft. Bowel sounds are hypoactive x4. Nondistended. Neurologic: The patient appears to be in acute delirium. The patient has garbled speech and is unintelligible. The patient is very fidgety. The patient has inappropriate garbled responses when asked questions. LABORATORY STUDIES: 1. CBC: White blood cell count 15.0, hemoglobin 12.8, hematocrit 39.1, platelets are 262,000. 2. PT 10.7, INR 1.0. 3. BMP: Sodium 145, potassium 3.6, chloride 108, CO2 of 20, anion gap 20.6, BUN 24, creatinine 1.2, GFR 58, glucose 103, calcium 9.0, magnesium 1.8. 4. Troponin 0.074. 5. C-reactive protein 1.3. IMAGING STUDIES: 1. Chest x-ray does not show any acute cardiopulmonary process. 2. CT of head does not show any plain CT evidence of acute intracranial process. 3. CT of chest/abdomen/pelvis. No source of infection. No abnormality to explain abdominal pain. ASSESSMENT: 1. Acute delirium. 2. Leukocytosis. 3. Positive troponin. 4. Dehydration. 5. Fevers. PLAN: The patient will be transferred to [facility] for higher level of care due to worsening symptoms. The patient does have a positive troponin. In the past, CT of the head has been normal, however, MRI has showed infarct. The case was discussed with Dr. Robbins. The patient was accepted in transfer. All questions were answered. The patient will be transferred via [facility] ground ambulance. The patient was discharged in hemodynamic stable condition. The patient's family was notified via telephone. TB: 04/20/2020 13:07:40 MODL: 04/20/2020 14:57:19 /[id number]
[2020-04-20] MEDS ORDERED: Mirtazapine 15 MG Tab PO SCH (20:00)
== END 2020-04-20 12:00 | disposition short-term general hospital (02) | DRG 641 ==
LOC: VM.ED 16:45 → VM.MS 19:56
PROVIDERS: ADMIT Nurse Practitioner Family; ATTEND Nurse Practitioner Family
DX: E86.0 Dehydration (principal); F05 Delirium due to known physiological condition; R41.82 Altered mental status, unspecified; D72.829 Elevated white blood cell count, unspecified; R50.9 Fever, unspecified; F15.90 Other stimulant use, unspecified, uncomplicated; R41.0 Disorientation, unspecified; E78.5 Hyperlipidemia, unspecified; H54.7 Unspecified visual loss; H91.90 Unspecified hearing loss, unspecified ear; E78.00 Pure hypercholesterolemia, unspecified; Z86.010 Personal history of colon polyps; K21.9 Gastro-esophageal reflux disease without esophagitis; I12.9 Hypertensive chronic kidney disease with stage 1 through stage 4 chronic kidney disease, or unspecified chronic kidney disease; N18.30 Chronic kidney disease, stage 3 unspecified; N40.0 Benign prostatic hyperplasia without lower urinary tract symptoms; M35.9 Systemic involvement of connective tissue, unspecified; F32.9 Major depressive disorder, single episode, unspecified; F41.9 Anxiety disorder, unspecified; Z20.822 Contact with and (suspected) exposure to COVID-19; M48.061 Spinal stenosis, lumbar region without neurogenic claudication; E53.8 Deficiency of other specified B group vitamins; E87.6 Hypokalemia; E83.42 Hypomagnesemia; Z88.8 Allergy status to other drugs, medicaments and biological substances; Z79.02 Long term (current) use of antithrombotics/antiplatelets; Z79.82 Long term (current) use of aspirin; Z79.899 Other long term (current) drug therapy
CPT/HCPCS: 36415; 70450; 71045; 71260; 74177; 80048; 80053; 80305-QW; 80307; 81001; 83605; 83735; 84443; 84484; 85025; 85610; 85730; 86140; 87040; 93005; 96374; 99223; 99238; 99285-25; A9270-GY; J2060; J7030; U0002

== ENCOUNTER 2020-07-14 23:15 | Observation (INO) | payer MEDICARE, BC ==
[2020-07-14] MEDS ORDERED: Sodium Chloride 0.9% 1,000 ML IV ONE (23:50)
[2020-07-14] MEDS ORDERED: Sodium Chloride 0.9% 10 ML Syringe FLUSH PRN (23:52)
--- NOTE | 2020-07-14 23:57 | EDM.PDOC ---
ED HPI GENERAL MEDICAL PROBLEM - General Chief Complaint: Abdominal Pain Stated Complaint: Abdominal pain, diarrhea Time Seen by Provider: 07/14/20 23:34 Source of Information: Reports: Patient, Family, Other (caregiver) History Limitations: Reports: Altered Mental Status - History of Present Illness INITIAL COMMENTS - FREE TEXT/NARRATIVE: Patient comes in with complaints of diarrhea and abdominal pain. This is a long standing problem per patient. Seen here and admitted at the end of March, transferred to [facility] who then discharged him to a intermediate in [place]. Rep orts by patient's son indicate he was doing well but did not want to stay and requested to be returned to his home. This did occur about 2 days ago and he is now requesting to be seen with abdominal pain. Denies any pain currently. Endorses diarrhea. Afebrile, no urinary symptoms, no chest pain or pressure. Onset: Gradual Duration: Intermittent Location: Reports: Abdomen, Generalized Quality: Reports: Ache Severity: Moderate Improves with: Reports: None Worsens with: Reports: None Associated Symptoms: Reports: No Other Symptoms Treatments COMMUNITY RELATIONS ASSISTANT: Reports: Other (see below) Other Treatments COMMUNITY RELATIONS ASSISTANT: Imodium - Related Data Allergies Allergy/AdvReac Type Severity Reaction Status Date / Time duloxetine [From Cymbalta] Allergy Other Verified 07/14/20 23:45 hydrocodone AdvReac Hallucinati Verified 07/14/20 23:45 ons Home Meds: Home Meds Folic Acid 1 mg PO DAILY 07/04/13 [History] Lisinopril 40 mg PO DAILY 07/04/13 [History] allopurinoL [Zyloprim] 100 mg PO DAILY 07/04/13 [History] Mirtazapine [Remeron] 1.5 tab PO BEDTIME 03/04/15 [History] Pantoprazole [ProTONIX] 40 mg PO DAILY 03/04/15 [History] Sucralfate [Carafate] 1 gm PO QIDACANDBED 03/04/15 [History] Albuterol [IJD: Ventolin HFA] 2 puff INH Q6H PRN 02/24/17 [History] Gabapentin [Neurontin] 100 mg PO TID 07/27/17 [History] Venlafaxine [Effexor XR] 150 mg PO DAILY 07/27/17 [History] amLODIPine Besylate [Amlodipine Besylate] 10 mg PO DAILY 07/27/17 [History] carvediloL [Coreg] 25 mg PO BID 01/26/18 [History] Dextran 70/Hypromellose [Genteal Tears 0.1%-0.3% Drop] 1 drop EYEBOTH TID 12/12/19 [History] Magnesium Hydroxide [Milk of Magnesia] 30 ml PO BEDTIME PRN 12/12/19 [History] Acetaminophen [Tylenol] 650 mg PO Q4H PRN 04/19/20 [History] Aspirin 81 mg PO DAILY 04/19/20 [History] Cholecalciferol (Vitamin D3) [Vitamin D3] 2,000 unit PO DAILY 04/19/20 [History] Clopidogrel Bisulfate [Plavix] 75 mg PO DAILY 04/19/20 [History] Hydrocortisone [Hydrocortisone 2.5% Crm] 30 gm TOP BID 04/19/20 [History] Sennosides/Docusate Sodium [Senna-S 8.6-50 mg Tablet] 2 tab PO BID 04/19/20 [History] Bisacodyl [Laxative Suppository] 10 mg RECTAL DAILY PRN 04/20/20 [History] Sodium Phosphate,[place]-Dibasic [Fleet Enema] 118 mg RECTAL DAILY PRN 04/20/20 [History] Sodium Phosphate,[place]-Dibasic [Fleet Enema] 118 ml RC DAILY PRN 04/20/20 [History] Past Medical History HEENT History: Reports: Hard of Hearing, Impaired Vision Cardiovascular History: Reports: High Cholesterol, Hypertension Respiratory History: Reports: None Gastrointestinal History: Reports: GERD, Other (See Below) Other Gastrointestinal History: Figueroa's esophagus, hx colon polyps, fm hx colon ca Genitourinary History: Reports: BPH, Chronic Renal Insuffiency, Renal Calculus, Renal Disease Other Genitourinary History: CKD III Musculoskeletal History: Reports: Connective Tissue Disease, Gout Other Musculoskeletal History: R hip FX, surgery on back, chronic fatigue Neurological History: Reports: Other (See Below) Other Neuro History: Wernicke encephalopathy Psychiatric History: Reports: Addiction, Anxiety, Depression, Other (See Below) Other Psychiatric History: Dementia Endocrine/Metabolic History: Reports: Other (See Below) Other Endocrine/Metabolic History: spinal stenosis lumbar Hematologic History: Reports: B12 Deficiency, Other (See Below) Other Hematologic History: hypokalemia. mypomagnesemia Immunologic History: Reports: None Oncologic (Cancer) History: Reports: None - Past Surgical History Head Surgeries/Procedures: Reports: None HEENT Surgical History: Reports: Other (See Below) Other HEENT Surgeries/Procedures: Bevacizumab injection GI Surgical History: Reports: Colonoscopy, Hernia Repair/Other Male Surgical History: Reports: Renal Calculus Neurological Surgical History: Reports: Lumbar Spine Musculoskeletal Surgical History: Reports: Other (See Below) Other Musculoskeletal Surgeries/Procedures:: ORIF right hip Social & Family History - Family History Family Medical History: Unobtainable Oncologic: Reports: Breast, Colon - Caffeine Use Caffeine Use: Reports: Tea - Living Situation & Occupation Living situation: Reports: , Alone, Other ( intermediate alzheimer's) ED ROS GENERAL - Review of Systems Review Of Systems: See Below Constitutional: Reports: No Symptoms HEENT: Reports: No Symptoms Respiratory: Reports: No Symptoms Cardiovascular: Reports: No Symptoms Endocrine: Reports: No Symptoms GI/Abdominal: Reports: Abdominal Pain, Diarrhea : Reports: No Symptoms Musculoskeletal: Reports: No Symptoms Skin: Reports: No Symptoms Neurological: Reports: No Symptoms Psychiatric: Reports: No Symptoms Hematologic/Lymphatic: Reports: No Symptoms Immunologic: Reports: No Symptoms ED EXAM, GI/ABD - Physical Exam Exam: See Below Exam Limited By: No Limitations General Appearance: Alert, WD/WN, No Apparent Distress Eyes: Bilateral: Normal Appearance, EOMI Ears: Normal External Exam, Normal Canal, Hearing Grossly Normal, Normal TMs Nose: Normal Inspection, Normal Mucosa, No Blood Throat/Mouth: Normal Inspection, Normal Lips, Normal Teeth, Normal Gums, Normal Oropharynx, Normal Voice, No Airway Compromise Head: Atraumatic, Normocephalic Neck: Normal Inspection, Supple, Non-Tender, Full Range of Motion Respiratory/Chest: No Respiratory Distress, Lungs Clear, Normal Breath Sounds, No Accessory Muscle Use, Chest Non-Tender Cardiovascular: Normal Peripheral Pulses, Regular Rate, Rhythm, No Edema, No Gallop, No JVD, No Murmur, No Rub GI/Abdominal Exam: Normal Bowel Sounds, Soft, Non-Tender, No Organomegaly, No Distention, No Abnormal Bruit, No Mass, Pelvis Stable Back Exam: Normal Inspection, Full Range of Motion, NT Extremities: Normal Inspection, Normal Range of Motion, Non-Tender, Normal Capillary Refill, No Pedal Edema Neurological: Alert, Oriented, CN II-XII Intact, Normal Gait, Normal Reflexes, No Motor/Sensory Deficits, Disoriented, Slow to Respond Psychiatric: Normal Affect, Normal Mood Skin Exam: Warm, Dry, Intact, Normal Color, No Rash Lymphatic: No Adenopathy #1 Interpretation EKG Date: 07/15/20 Time: 00:32 Rhythm: NSR Rate (Beats/Min): 68 [place]: LAD-Left [place] Deviation P-Wave: Present QRS: Normal ST-T: Normal QT: Normal Comparison: Change From Previous EKG (No clear ACS, mild changes from prior ekg) Course - Vital Signs Last Recorded V/S: Last Vital Signs Temp 37.1 C 07/15/20 03:08 Pulse 78 07/15/20 03:08 Resp 16 07/15/20 03:08 BP 158/74 H 07/15/20 03:08 Pulse Ox 95 07/15/20 03:08 - Orders/Labs/Meds Orders: Active Orders 24 hr Category Date Time Status Patient Status [ADT] Routine ADT 07/15/20 02:43 Active EKG Documentation Completion [RC] STAT Care 07/14/20 23:52 Active Abdomen Pelvis w Cont [CT] Stat Exams 07/14/20 23:57 Taken PROCALCITONIN [REF] Stat Lab 07/14/20 23:52 Received UA RFX AUTUMN AND CULT IF INDIC [URIN] Stat Lab 07/15/20 01:35 Ordered Sodium Chloride 0.9% [Saline Flush] Med 07/14/20 23:52 Active 10 ml FLUSH ASDIRECTED PRN Saline Lock Insert [OM.PC] Routine Oth 07/14/20 23:52 Ordered Medication Orders Acetaminophen (Acetaminophen 325 Mg Tab) 650 mg PO Q4H PRN PRN Reason: Pain (Mild 1-3)/fever Potassium Chloride/Sodium Chloride (1/2 Ns With 20 Meq Kcl) 1,000 mls @ 100 mls/hr IV ASDIRECTED MELISSA Sodium Chloride (Sodium Chloride 0.9% 10 Ml Syringe) 10 ml FLUSH ASDIRECTED PRN PRN Reason: Keep Vein Open Labs: Laboratory Tests 07/15/20 07/15/20 07/15/20 Range/Units 00:01 00:01 00:01 WBC 7.2 (4.0-10.0) x10^3/uL RBC 4.24 L (4.5-6.0) x10^6/uL Hgb 11.4 L (14.0-18.0) g/dL Hct 35.7 L (40.0-52.0) % MCV 84.2 (78.0-93.0) fL MCH 26.9 (26.0-32.0) pg MCHC 31.9 L (32.0-36.0) g/dL RDW Coeff of Prince 14.7 (10.0-15.0) % Plt Count 206 (130-400) x10^3/uL Neut % (Auto) 58.1 (50.0-80.0) % Lymph % (Auto) 20.1 L (25.0-50.0) % [place] % (Auto) 14.1 H (2.0-11.0) % Eos % (Auto) 6.5 H (0.0-4.0) % Baso % (Auto) 1.2 (0.2-1.2) % PT 11.0 (9.9-12.5) SEC INR 1.0 L (2.0-3.5) ABG pH (7.35-7.45) pH ABG pCO2 (35-48) mmHG ABG pO2 (83-108) mmHG ABG HCO3 (21-28) mmol/L ABG Total CO2 (22-29) mmol/L ABG O2 Saturation % ABG Base Excess ((-2)-(+3)) mmol/L FiO2 Sodium 142 (136-145) mmol/L Potassium 3.3 L (3.5-5.1) mmol/L Chloride 107 (98-107) mmol/L Carbon Dioxide 26 (21-32) mmol/L Anion Gap 12.3 (5-15) mmol/L BUN 16 (7-18) mg/dL Creatinine 1.4 H (0.70-1.30) mg/dL Est Cr Clr Drug Dosing 45.42 mL/min Estimated GFR (MDRD) 49 Glucose 112 H (70-99) mg/dL Lactic Acid (0.4-2.0) mmol/L Calcium 8.1 L (8.5-10.1) mg/dL Corrected Calcium 8.90 (8.5-10.1) mg/dL Magnesium (1.8-2.4) mg/dL Total Bilirubin 0.2 (0.2-1.0) mg/dL AST 14 L (15-37) U/L ALT 16 (16-63) U/L Alkaline Phosphatase 57 (46-116) U/L Troponin I High Sens 9 (<=76) ng/L Total Protein 5.9 L (6.4-8.2) g/dL Albumin 3.0 L (3.4-5.0) g/dL Globulin 2.9 Albumin/Globulin Ratio 1.03 Amylase 82 (25-115) U/L SARS CoV-2 RNA Rapid SAMM (NEGATIVE) 07/15/20 07/15/20 07/15/20 Range/Units 00:01 00:01 00:07 WBC (4.0-10.0) x10^3/uL RBC (4.5-6.0) x10^6/uL Hgb (14.0-18.0) g/dL Hct (40.0-52.0) % MCV (78.0-93.0) fL MCH (26.0-32.0) pg MCHC (32.0-36.0) g/dL RDW Coeff of Prince (10.0-15.0) % Plt Count (130-400) x10^3/uL Neut % (Auto) (50.0-80.0) % Lymph % (Auto) (25.0-50.0) % [place] % (Auto) (2.0-11.0) % Eos % (Auto) (0.0-4.0) % Baso % (Auto) (0.2-1.2) % PT (9.9-12.5) SEC INR (2.0-3.5) ABG pH (7.35-7.45) pH ABG pCO2 (35-48) mmHG ABG pO2 (83-108) mmHG ABG HCO3 (21-28) mmol/L ABG Total CO2 (22-29) mmol/L ABG O2 Saturation % ABG Base Excess ((-2)-(+3)) mmol/L FiO2 Sodium (136-145) mmol/L Potassium (3.5-5.1) mmol/L Chloride (98-107) mmol/L Carbon Dioxide (21-32) mmol/L Anion Gap (5-15) mmol/L BUN (7-18) mg/dL Creatinine (0.70-1.30) mg/dL Est Cr Clr Drug Dosing mL/min Estimated GFR (MDRD) Glucose (70-99) mg/dL Lactic Acid 1.0 (0.4-2.0) mmol/L Calcium (8.5-10.1) mg/dL Corrected Calcium (8.5-10.1) mg/dL Magnesium 1.7 L (1.8-2.4) mg/dL Total Bilirubin (0.2-1.0) mg/dL AST (15-37) U/L ALT (16-63) U/L Alkaline Phosphatase (46-116) U/L Troponin I High Sens (<=76) ng/L Total Protein (6.4-8.2) g/dL Albumin (3.4-5.0) g/dL Globulin Albumin/Globulin Ratio Amylase (25-115) U/L SARS CoV-2 RNA Rapid SAMM Negative (NEGATIVE) 07/15/20 Range/Units 00:35 WBC (4.0-10.0) x10^3/uL RBC (4.5-6.0) x10^6/uL Hgb (14.0-18.0) g/dL Hct (40.0-52.0) % MCV (78.0-93.0) fL MCH (26.0-32.0) pg MCHC (32.0-36.0) g/dL RDW Coeff of Prince (10.0-15.0) % Plt Count (130-400) x10^3/uL Neut % (Auto) (50.0-80.0) % Lymph % (Auto) (25.0-50.0) % [place] % (Auto) (2.0-11.0) % Eos % (Auto) (0.0-4.0) % Baso % (Auto) (0.2-1.2) % PT (9.9-12.5) SEC INR (2.0-3.5) ABG pH 7.40 (7.35-7.45) pH ABG pCO2 39 (35-48) mmHG ABG pO2 71 L (83-108) mmHG ABG HCO3 24 (21-28) mmol/L ABG Total CO2 24 (22-29) mmol/L ABG O2 Saturation 94.0 % ABG Base Excess -0 ((-2)-(+3)) mmol/L FiO2 0.21 Sodium (136-145) mmol/L Potassium (3.5-5.1) mmol/L Chloride (98-107) mmol/L Carbon Dioxide (21-32) mmol/L Anion Gap (5-15) mmol/L BUN (7-18) mg/dL Creatinine (0.70-1.30) mg/dL Est Cr Clr Drug Dosing mL/min Estimated GFR (MDRD) Glucose (70-99) mg/dL Lactic Acid (0.4-2.0) mmol/L Calcium (8.5-10.1) mg/dL Corrected Calcium (8.5-10.1) mg/dL Magnesium (1.8-2.4) mg/dL Total Bilirubin (0.2-1.0) mg/dL AST (15-37) U/L ALT (16-63) U/L Alkaline Phosphatase (46-116) U/L Troponin I High Sens (<=76) ng/L Total Protein (6.4-8.2) g/dL Albumin (3.4-5.0) g/dL Globulin Albumin/Globulin Ratio Amylase (25-115) U/L SARS CoV-2 RNA Rapid SAMM (NEGATIVE) Meds: Medications Generic Name Dose Route Start Last Admin Trade Name Freq PRN Reason Stop Dose Admin Acetaminophen 650 mg 07/15/20 03:07 Acetaminophen 325 Mg Tab PO Q4H PRN Pain (Mild 1-3)/fever Potassium Chloride/Sodium Chloride 1,000 mls @ 100 mls/hr 07/15/20 04:30 1/2 Ns With 20 Meq Kcl IV ASDIRECTED MELISSA Sodium Chloride 10 ml 07/14/20 23:52 Sodium Chloride 0.9% 10 Ml Syringe FLUSH ASDIRECTED PRN Keep Vein Open Discontinued Medications Generic Name Dose Route Start Last Admin Trade Name Freq PRN Reason Stop Dose Admin Sodium Chloride 1,000 mls @ 999 mls/hr 07/14/20 23:50 07/15/20 00:01 Normal Saline IV 07/15/20 00:50 999 mls/hr ONETIME ONE Administration Iopamidol 100 ml 07/15/20 01:46 07/15/20 01:47 Iopamidol 612 Mg/Ml 100 Ml Bottle IVPUSH 07/15/20 01:47 100 ml ONETIME ONE Administration Departure - Departure Time of Disposition: 02:55 Disposition: Refer to Observation Condition: Fair Clinical Impression: Hypokalemia Gastritis Qualifiers: Gastritis type: other gastritis Chronicity: acute Gastritis bleeding: without bleeding Qualified Code(s): K29.00 - Acute gastritis without bleeding - Discharge Information *PRESCRIPTION DRUG MONITORING PROGRAM REVIEWED*: Not Applicable *COPY OF PRESCRIPTION DRUG MONITORING REPORT IN PATIENT KAYLAN: Not Applicable Sepsis Event Note (ED) - Evaluation Sepsis Screening Result: No Definite Risk - Focused Exam Vital Signs: Vital Signs Temp Pulse Resp BP Pulse Ox 07/14/20 23:15 36.6 C 79 16 164/77 H 97 - Problem List & Annotations (1) Gastritis SNOMED Code(s): 9748752 Code(s): K29.70 - GASTRITIS, UNSPECIFIED, WITHOUT BLEEDING Status: Acute Current Visit: Yes Qualifiers: Gastritis type: other gastritis Chronicity: acute Gastritis bleeding: without bleeding Qualified Code(s): K29.00 - Acute gastritis without bleeding (2) Hypokalemia SNOMED Code(s): 02597651 Code(s): E87.6 - HYPOKALEMIA Status: Acute Priority: High Current Visit: Yes - Problem List Review Problem List Initiated/Reviewed/Updated: Yes - My Orders Last 24 Hours: My Active Orders 07/14/20 23:52 EKG Documentation Completion [RC] STAT PROCALCITONIN [REF] Stat Sodium Chloride 0.9% [Saline Flush] 10 ml FLUSH ASDIRECTED PRN Saline Lock Insert [OM.PC] Routine 07/14/20 23:57 Abdomen Pelvis w Cont [CT] Stat 07/15/20 01:35 UA RFX AUTUMN AND CULT IF INDIC [URIN] Stat 07/15/20 02:43 Patient Status [ADT] Routine - Assessment/Plan Last 24 Hours: My Active Orders 07/14/20 23:52 EKG Documentation Completion [RC] STAT PROCALCITONIN [REF] Stat Sodium Chloride 0.9% [Saline Flush] 10 ml FLUSH ASDIRECTED PRN Saline Lock Insert [OM.PC] Routine 07/14/20 23:57 Abdomen Pelvis w Cont [CT] Stat 07/15/20 01:35 UA RFX AUTUMN AND CULT IF INDIC [URIN] Stat 07/15/20 02:43 Patient Status [ADT] Routine Assessment:: Hypokalemia Gastritis Dehydration Plan: Gentle rehydration, potassium supplementation. Follow up with case management to address placement issues. Not safe to be at home on his own, even with caregivers checking on him. Unable to maintain adequate hydration. Full code status
[2020-07-15 00:37] LABS: ANION GAP 12.3 mmol/L (5-15)
[2020-07-15 00:45] LABS: BICARBONATE,ARTERIAL 24 mmol/L (21-28); PCO2 ARTERIAL 39 mmHG (35-48); PO2 ARTERIAL 71 mmHG (83-108)
[2020-07-15] MEDS ORDERED: Iopamidol 612 MG/ML 100 ML Bottle IVPUSH ONE (01:46)
[2020-07-15] MEDS ORDERED: Acetaminophen 325 MG Tab PO PRN (03:07)
[2020-07-15] MEDS ORDERED: Sodium Chloride 0.45% with KCl 1,000 ML IV SCH (04:30)
[2020-07-15] MEDS ORDERED: Magnesium Hydroxide 400 MG/5 ML Susp 30 ML Cup PO PRN (04:33)
[2020-07-15] MEDS ORDERED: Bisacodyl 10 MG Supp RECTAL PRN (04:33)
[2020-07-15] MEDS ORDERED: Albuterol HFA 18 Gm Inhaler INH PRN (04:33)
[2020-07-15] MEDS: Sucralfate 1 GM Tab PO SCH ×4 (06:23→20:52)
--- NOTE | 2020-07-15 07:42 | CT ---
[id number] CT/CT Abdomen Pelvis W IV EXAM: ABDOMEN AND PELVIS CT WITH CONTRAST INDICATION: Abdominal pain and diarrhea. COMPARISON: April 19, 2020. DISCUSSION: Cholelithiasis without CT evidence of acute cholecystitis. Scattered hepatic hypodensities most consistent with cysts and present for several years. There is a thick-walled appearance of the distal gastric antrum. This could be from incomplete distention, inflammatory process or neoplasm. Consider endoscopy for further characterization. Scattered collateral vessels in the upper abdomen. Small fat-containing umbilical hernia. Diverticulosis without evidence of diverticulitis. There are couple of tiny nonobstructing intrarenal calculi without evidence of hydronephrosis. Small chronic left adrenal adenoma without interval change. The pancreas, spleen, right adrenal gland, and small bowel are normal in appearance. No adenopathy, free air free fluid. Evidence of prior lumbar spine posterior decompression. Degenerative changes throughout the spine. Prior fixation of the right femoral neck. IMPRESSION: 1. A thick-walled appearance of the gastric antrum could be inflammatory or neoplastic. Consider endoscopy for further evaluation. 2. Cholelithiasis without CT evidence of acute cholecystitis. Darryl Love MD 07/15/20 0741 Thank you for allowing us to participate in the care of your patient.
[2020-07-15] MEDS ORDERED: Non-Formulary Medication 1 Each (Cholecalciferol (Vitamin D3) [Vitamin D3] 2,000 UNIT Caps PO SCH (08:00)
[2020-07-15] MEDS ORDERED: Lisinopril 20 MG Tab PO SCH (08:00)
[2020-07-15] MEDS ORDERED: Pantoprazole 40 MG Tab.CR PO SCH (08:00)
[2020-07-15] MEDS ORDERED: VENLAFAXINE 150 MG PO SCH (08:00)
[2020-07-15] MEDS ORDERED: Hydrocortisone 2.5% Crm 30 GM Tube TOP SCH (08:00)
[2020-07-15] MEDS: Gabapentin 100 MG Cap PO SCH ×3 (11:00→20:50)
[2020-07-15] MEDS: Allopurinol 100 MG Tab PO SCH (11:00)
[2020-07-15] MEDS: amLODIPine 10 MG Tab PO SCH (11:00)
[2020-07-15] MEDS: Aspirin 81 MG Tab.Chew PO SCH (11:00)
[2020-07-15] MEDS: Folic Acid 1 MG Tab PO SCH (11:01)
[2020-07-15] MEDS: Clopidogrel 75 MG Tab PO SCH (11:01)
[2020-07-15] MEDS: Hypromellose 0.3% Ophth Soln 15 ML Bottle EYEBOTH SCH ×3 (11:02→20:58)
--- NOTE | 2020-07-15 11:04 | PCM.PN ---
- General Info Date of Service: 07/15/20 Subjective Update: Pt. was admitted early this AM with complaints of abdominal pain, diarrhea, dehydration and mild hypokalemia. Pt. was seen by HALEY Prado. Pt. states that he has been experiencing the diarrhea "for months". Pt. was hospitalized in [facility] in March and discharged with acute toxic encephalopathy thought to be due to polypharmacy and history of ETOH abuse, chest pain with mildly elevated troponin, severe weakness and debility, and history of recent stroke in 2019. Pt. was discharged and admitted to [facility]. Pt. was unhappy there, and he checked out of the facility last week, according to son. On admission this AM, pt. had no white count. Lactic acid was normal. Urine was negative. Potassium was mildly decreased at 3.3. Pt. underwent CT abd/pelvis which showed some thickening of the gastric antrum of inflammatory vs. neoplastic etiology. Endoscopy was suggested. Pt. did have upper GI in 2013 that did show reactive gastropathy and the antrum without evidence of malignancy. Troponin and EKG were negative. Pt. was not complaining of chest pain or shortness of breath. Covid 19 was negative. Pt. was started on IV 1/2 NS and 20 meq Kcl at 100ml/hr. This AM, potassium was up to 3.6. This morning, pt. was walking with the assist of one and a walker. He has had one loose stool; staff states that it did not have the smell or consistency of stool associated with c diff colitis. In reviewing the patient's chart, it does not appear that he has been on any antibiotics recently. Appetite appears to be poor. He only consumed about 50% of his breakfast. Pt. states that he is not hungry. Pt. states that he is still having some abdominal discomfort but feels that it has improved. He is quite confused about the specifics or his medical history, which LTC he was in, or his discharge diagnoses for the hospital. Functional Status: Reports: Pain Controlled, Tolerating Diet, Urinating, Other ( 1 loose stool today.) - Review of Systems General: Reports: Weakness. 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 Denies: Nausea, Vomiting Genitourinary: Reports: No Symptoms Musculoskeletal: Reports: No Symptoms Skin: Reports: No Symptoms Neurological: Reports: Confusion, Weakness Psychiatric: Reports: Confusion - Patient Data Vitals - Most Recent: Last Vital Signs Temp 37.0 C 07/15/20 10:00 Pulse 69 07/15/20 10:00 Resp 16 07/15/20 10:00 BP 130/62 07/15/20 10:00 Pulse Ox 96 07/15/20 10:00 Weight - Most Recent: 165 kg I&O - Last 24 Hours: Intake & Output 07/14/20 07/15/20 07/15/20 22:59 06:59 14:59 Intake Total 1000 180 Balance 1000 180 Lab Results Last 24 Hours: Laboratory Results - last 24 hr 07/15/20 07/15/20 07/15/20 Range/Units 00:01 00:01 00:01 WBC 7.2 (4.0-10.0) x10^3/uL RBC 4.24 L (4.5-6.0) x10^6/uL Hgb 11.4 L (14.0-18.0) g/dL Hct 35.7 L (40.0-52.0) % MCV 84.2 (78.0-93.0) fL MCH 26.9 (26.0-32.0) pg MCHC 31.9 L (32.0-36.0) g/dL RDW Coeff of Prince 14.7 (10.0-15.0) % Plt Count 206 (130-400) x10^3/uL Neut % (Auto) 58.1 (50.0-80.0) % Lymph % (Auto) 20.1 L (25.0-50.0) % Levy % (Auto) 14.1 H (2.0-11.0) % Eos % (Auto) 6.5 H (0.0-4.0) % Baso % (Auto) 1.2 (0.2-1.2) % PT 11.0 (9.9-12.5) SEC INR 1.0 L (2.0-3.5) ABG pH (7.35-7.45) pH ABG pCO2 (35-48) mmHG ABG pO2 (83-108) mmHG ABG HCO3 (21-28) mmol/L ABG Total CO2 (22-29) mmol/L ABG O2 Saturation % ABG Base Excess ((-2)-(+3)) mmol/L FiO2 Sodium 142 (136-145) mmol/L Potassium 3.3 L (3.5-5.1) mmol/L Chloride 107 (98-107) mmol/L Carbon Dioxide 26 (21-32) mmol/L Anion Gap 12.3 (5-15) mmol/L BUN 16 (7-18) mg/dL Creatinine 1.4 H (0.70-1.30) mg/dL Est Cr Clr Drug Dosing 45.42 mL/min Estimated GFR (MDRD) 49 Glucose 112 H (70-99) mg/dL Lactic Acid (0.4-2.0) mmol/L Calcium 8.1 L (8.5-10.1) mg/dL Corrected Calcium 8.90 (8.5-10.1) mg/dL Magnesium (1.8-2.4) mg/dL Total Bilirubin 0.2 (0.2-1.0) mg/dL AST 14 L (15-37) U/L ALT 16 (16-63) U/L Alkaline Phosphatase 57 (46-116) U/L Troponin I High Sens 9 (<=76) ng/L Total Protein 5.9 L (6.4-8.2) g/dL Albumin 3.0 L (3.4-5.0) g/dL Globulin 2.9 Albumin/Globulin Ratio 1.03 Amylase 82 (25-115) U/L Urine Color (YELLOW) Urine Appearance (CLEAR) Urine pH (5.0-8.0) Ur Specific Bladen Urine Protein (NEGATIVE) mg/dL Urine Glucose (UA) (NEGATIVE) mg/dL Urine Ketones (NEGATIVE) mg/dL Urine Occult Blood (NEGATIVE) Urine Nitrite (NEGATIVE) Urine Bilirubin (NEGATIVE) Urine Urobilinogen (0.2) EU/dL Ur Leukocyte Esterase (NEGATIVE) Urine RBC (NOT SEEN) /HPF Urine WBC (NOT SEEN) /HPF Ur Squamous Epith Cells (NOT SEEN) /HPF Urine Bacteria (NOT SEEN) /HPF Urine Mucus (NOT SEEN) /LPF SARS CoV-2 RNA Rapid SAMM (NEGATIVE) 07/15/20 07/15/20 07/15/20 Range/Units 00:01 00:01 00:07 WBC (4.0-10.0) x10^3/uL RBC (4.5-6.0) x10^6/uL Hgb (14.0-18.0) g/dL Hct (40.0-52.0) % MCV (78.0-93.0) fL MCH (26.0-32.0) pg MCHC (32.0-36.0) g/dL RDW Coeff of Prince (10.0-15.0) % Plt Count (130-400) x10^3/uL Neut % (Auto) (50.0-80.0) % Lymph % (Auto) (25.0-50.0) % Levy % (Auto) (2.0-11.0) % Eos % (Auto) (0.0-4.0) % Baso % (Auto) (0.2-1.2) % PT (9.9-12.5) SEC INR (2.0-3.5) ABG pH (7.35-7.45) pH ABG pCO2 (35-48) mmHG ABG pO2 (83-108) mmHG ABG HCO3 (21-28) mmol/L ABG Total CO2 (22-29) mmol/L ABG O2 Saturation % ABG Base Excess ((-2)-(+3)) mmol/L FiO2 Sodium (136-145) mmol/L Potassium (3.5-5.1) mmol/L Chloride (98-107) mmol/L Carbon Dioxide (21-32) mmol/L Anion Gap (5-15) mmol/L BUN (7-18) mg/dL Creatinine (0.70-1.30) mg/dL Est Cr Clr Drug Dosing mL/min Estimated GFR (MDRD) Glucose (70-99) mg/dL Lactic Acid 1.0 (0.4-2.0) mmol/L Calcium (8.5-10.1) mg/dL Corrected Calcium (8.5-10.1) mg/dL Magnesium 1.7 L (1.8-2.4) mg/dL Total Bilirubin (0.2-1.0) mg/dL AST (15-37) U/L ALT (16-63) U/L Alkaline Phosphatase (46-116) U/L Troponin I High Sens (<=76) ng/L Total Protein (6.4-8.2) g/dL Albumin (3.4-5.0) g/dL Globulin Albumin/Globulin Ratio Amylase (25-115) U/L Urine Color (YELLOW) Urine Appearance (CLEAR) Urine pH (5.0-8.0) Ur Specific Bladen Urine Protein (NEGATIVE) mg/dL Urine Glucose (UA) (NEGATIVE) mg/dL Urine Ketones (NEGATIVE) mg/dL Urine Occult Blood (NEGATIVE) Urine Nitrite (NEGATIVE) Urine Bilirubin (NEGATIVE) Urine Urobilinogen (0.2) EU/dL Ur Leukocyte Esterase (NEGATIVE) Urine RBC (NOT SEEN) /HPF Urine WBC (NOT SEEN) /HPF Ur Squamous Epith Cells (NOT SEEN) /HPF Urine Bacteria (NOT SEEN) /HPF Urine Mucus (NOT SEEN) /LPF SARS CoV-2 RNA Rapid SAMM Negative (NEGATIVE) 07/15/20 07/15/20 07/15/20 Range/Units 00:35 01:35 10:05 WBC (4.0-10.0) x10^3/uL RBC (4.5-6.0) x10^6/uL Hgb (14.0-18.0) g/dL Hct (40.0-52.0) % MCV (78.0-93.0) fL MCH (26.0-32.0) pg MCHC (32.0-36.0) g/dL RDW Coeff of Prince (10.0-15.0) % Plt Count (130-400) x10^3/uL Neut % (Auto) (50.0-80.0) % Lymph % (Auto) (25.0-50.0) % Levy % (Auto) (2.0-11.0) % Eos % (Auto) (0.0-4.0) % Baso % (Auto) (0.2-1.2) % PT (9.9-12.5) SEC INR (2.0-3.5) ABG pH 7.40 (7.35-7.45) pH ABG pCO2 39 (35-48) mmHG ABG pO2 71 L (83-108) mmHG ABG HCO3 24 (21-28) mmol/L ABG Total CO2 24 (22-29) mmol/L ABG O2 Saturation 94.0 % ABG Base Excess -0 ((-2)-(+3)) mmol/L FiO2 0.21 Sodium (136-145) mmol/L Potassium 3.6 (3.5-5.1) mmol/L Chloride (98-107) mmol/L Carbon Dioxide (21-32) mmol/L Anion Gap (5-15) mmol/L BUN (7-18) mg/dL Creatinine (0.70-1.30) mg/dL Est Cr Clr Drug Dosing mL/min Estimated GFR (MDRD) Glucose (70-99) mg/dL Lactic Acid (0.4-2.0) mmol/L Calcium (8.5-10.1) mg/dL Corrected Calcium (8.5-10.1) mg/dL Magnesium (1.8-2.4) mg/dL Total Bilirubin (0.2-1.0) mg/dL AST (15-37) U/L ALT (16-63) U/L Alkaline Phosphatase (46-116) U/L Troponin I High Sens (<=76) ng/L Total Protein (6.4-8.2) g/dL Albumin (3.4-5.0) g/dL Globulin Albumin/Globulin Ratio Amylase (25-115) U/L Urine Color Light yellow (YELLOW) Urine Appearance Clear (CLEAR) Urine pH 6.0 (5.0-8.0) Ur Specific Bladen 1.015 Urine Protein 100 H (NEGATIVE) mg/dL Urine Glucose (UA) Negative (NEGATIVE) mg/dL Urine Ketones Negative (NEGATIVE) mg/dL Urine Occult Blood Negative (NEGATIVE) Urine Nitrite Negative (NEGATIVE) Urine Bilirubin Negative (NEGATIVE) Urine Urobilinogen 0.2 (0.2) EU/dL Ur Leukocyte Esterase Negative (NEGATIVE) Urine RBC 0-5 (NOT SEEN) /HPF Urine WBC 0-5 (NOT SEEN) /HPF Ur Squamous Epith Cells Rare (NOT SEEN) /HPF Urine Bacteria Not seen (NOT SEEN) /HPF Urine Mucus Not seen (NOT SEEN) /LPF SARS CoV-2 RNA Rapid SAMM (NEGATIVE) Med Orders - Current: Current Medications Acetaminophen (Acetaminophen 325 Mg Tab) 650 mg PO Q4H PRN PRN Reason: Pain (Mild 1-3)/fever Albuterol (Albuterol Hfa 18 Gm Inhaler) 0 gm INH Q6H PRN PRN Reason: Shortness of Breath Allopurinol (Allopurinol 100 Mg Tab) 100 mg PO DAILY [facility] Amlodipine Besylate (Amlodipine 10 Mg Tab) 10 mg PO DAILY [facility] Artificial Tears (Hypromellose 0.3% Ophth Soln 15 Ml Bottle) 0 ml EYEBOTH TID [facility] Aspirin (Aspirin 81 Mg Tab.Chew) 81 mg PO DAILY [facility] Carvedilol (Carvedilol 25 Mg Tab) 25 mg PO BID [facility] Clopidogrel Bisulfate (Clopidogrel 75 Mg Tab) 75 mg PO DAILY [facility] Folic Acid (Folic Acid 1 Mg Tab) 1 mg PO DAILY [facility] Gabapentin (Gabapentin 100 Mg Cap) 100 mg PO TID [facility] Hydrocortisone (Hydrocortisone 2.5% Crm 30 Gm Tube) 30 gm TOP BID [facility] Potassium Chloride/Sodium Chloride (1/2 Ns With 20 Meq Kcl) 1,000 mls @ 100 mls/hr IV ASDIRECTED [facility] Last Admin: 07/15/20 07:11 Dose: 100 mls/hr Documented by: Lisinopril (Lisinopril 20 Mg Tab) 40 mg PO DAILY [facility] Magnesium Hydroxide (Magnesium Hydroxide 400 Mg/5 Ml Susp 30 Ml Cup) 30 ml PO BEDTIME PRN PRN Reason: Constipation Mirtazapine (Mirtazapine 15 Mg Tab) 22.5 mg PO BEDTIME [facility] Non-Formulary Medication (Cholecalciferol (Vitamin D3) [Vitamin D3]) 2,000 unit PO DAILY [facility] Non-Formulary Medication (Venlafaxine [Effexor Xr]) 150 mg PO DAILY [facility] Pantoprazole Sodium (Pantoprazole 40 Mg Tab.Cr) 40 mg PO DAILY [facility] Sodium Chloride (Sodium Chloride 0.9% 10 Ml Syringe) 10 ml FLUSH ASDIRECTED PRN PRN Reason: Keep Vein Open Sucralfate (Sucralfate 1 Gm Tab) 1 gm PO QIDACANDBED [facility] Last Admin: 07/15/20 06:23 Dose: 1 gm Documented by: Discontinued Medications Bisacodyl (Bisacodyl 10 Mg Supp) 10 mg RECTAL DAILY PRN PRN Reason: Constipation Sodium Chloride (Normal Saline) 1,000 mls @ 999 mls/hr IV ONETIME ONE Stop: 07/15/20 00:50 Last Admin: 07/15/20 00:01 Dose: 999 mls/hr Documented by: Iopamidol (Iopamidol 612 Mg/Ml 100 Ml Bottle) 100 ml IVPUSH ONETIME ONE Stop: 07/15/20 01:47 Last Admin: 07/15/20 01:47 Dose: 100 ml Documented by: Senna/Docusate Sodium (Docusate Sodium/Sennosides 50-8.6 Mg Tab) 2 tab PO BID MELISSA - Exam General: Alert, Cooperative, Lethargic, Other (Confused to date and place.) HEENT: Pupils Equal, Pupils Reactive, EOMI Neck: Supple Lungs: Clear to Auscultation, Normal Respiratory Effort Cardiovascular: Regular Rate, Regular Rhythm GI/Abdominal Exam: Soft, Non-Tender, No Organomegaly, No Distention, Other (Male) Exam: Deferred Back Exam: Normal Inspection Extremities: Normal Inspection, Normal Range of Motion, Non-Tender, No Pedal Edema, Normal Capillary Refill Skin: Warm, Dry, Other (pallor) Neurological: No New Focal Deficit, Cranial Nerves Intact, Other (chronic dysphasia) Psy/Mental Status: Alert, Normal Affect - Patient Data Lab Results Last 24 hrs: Laboratory Results - last 24 hr 07/15/20 07/15/20 07/15/20 Range/Units 00:01 00:01 00:01 WBC 7.2 (4.0-10.0) x10^3/uL RBC 4.24 L (4.5-6.0) x10^6/uL Hgb 11.4 L (14.0-18.0) g/dL Hct 35.7 L (40.0-52.0) % MCV 84.2 (78.0-93.0) fL MCH 26.9 (26.0-32.0) pg MCHC 31.9 L (32.0-36.0) g/dL RDW Coeff of Prince 14.7 (10.0-15.0) % Plt Count 206 (130-400) x10^3/uL Neut % (Auto) 58.1 (50.0-80.0) % Lymph % (Auto) 20.1 L (25.0-50.0) % Levy % (Auto) 14.1 H (2.0-11.0) % Eos % (Auto) 6.5 H (0.0-4.0) % Baso % (Auto) 1.2 (0.2-1.2) % PT 11.0 (9.9-12.5) SEC INR 1.0 L (2.0-3.5) ABG pH (7.35-7.45) pH ABG pCO2 (35-48) mmHG ABG pO2 (83-108) mmHG ABG HCO3 (21-28) mmol/L ABG Total CO2 (22-29) mmol/L ABG O2 Saturation % ABG Base Excess ((-2)-(+3)) mmol/L FiO2 Sodium 142 (136-145) mmol/L Potassium 3.3 L (3.5-5.1) mmol/L Chloride 107 (98-107) mmol/L Carbon Dioxide 26 (21-32) mmol/L Anion Gap 12.3 (5-15) mmol/L BUN 16 (7-18) mg/dL Creatinine 1.4 H (0.70-1.30) mg/dL Est Cr Clr Drug Dosing 45.42 mL/min Estimated GFR (MDRD) 49 Glucose 112 H (70-99) mg/dL Lactic Acid (0.4-2.0) mmol/L Calcium 8.1 L (8.5-10.1) mg/dL Corrected Calcium 8.90 (8.5-10.1) mg/dL Magnesium (1.8-2.4) mg/dL Total Bilirubin 0.2 (0.2-1.0) mg/dL AST 14 L (15-37) U/L ALT 16 (16-63) U/L Alkaline Phosphatase 57 (46-116) U/L Troponin I High Sens 9 (<=76) ng/L Total Protein 5.9 L (6.4-8.2) g/dL Albumin 3.0 L (3.4-5.0) g/dL Globulin 2.9 Albumin/Globulin Ratio 1.03 Amylase 82 (25-115) U/L Urine Color (YELLOW) Urine Appearance (CLEAR) Urine pH (5.0-8.0) Ur Specific Bladen Urine Protein (NEGATIVE) mg/dL Urine Glucose (UA) (NEGATIVE) mg/dL Urine Ketones (NEGATIVE) mg/dL Urine Occult Blood (NEGATIVE) Urine Nitrite (NEGATIVE) Urine Bilirubin (NEGATIVE) Urine Urobilinogen (0.2) EU/dL Ur Leukocyte Esterase (NEGATIVE) Urine RBC (NOT SEEN) /HPF Urine WBC (NOT SEEN) /HPF Ur Squamous Epith Cells (NOT SEEN) /HPF Urine Bacteria (NOT SEEN) /HPF Urine Mucus (NOT SEEN) /LPF SARS CoV-2 RNA Rapid SAMM (NEGATIVE) 07/15/20 07/15/20 07/15/20 Range/Units 00:01 00:01 00:07 WBC (4.0-10.0) x10^3/uL RBC (4.5-6.0) x10^6/uL Hgb (14.0-18.0) g/dL Hct (40.0-52.0) % MCV (78.0-93.0) fL MCH (26.0-32.0) pg MCHC (32.0-36.0) g/dL RDW Coeff of Prince (10.0-15.0) % Plt Count (130-400) x10^3/uL Neut % (Auto) (50.0-80.0) % Lymph % (Auto) (25.0-50.0) % Levy % (Auto) (2.0-11.0) % Eos % (Auto) (0.0-4.0) % Baso % (Auto) (0.2-1.2) % PT (9.9-12.5) SEC INR (2.0-3.5) ABG pH (7.35-7.45) pH ABG pCO2 (35-48) mmHG ABG pO2 (83-108) mmHG ABG HCO3 (21-28) mmol/L ABG Total CO2 (22-29) mmol/L ABG O2 Saturation % ABG Base Excess ((-2)-(+3)) mmol/L FiO2 Sodium (136-145) mmol/L Potassium (3.5-5.1) mmol/L Chloride (98-107) mmol/L Carbon Dioxide (21-32) mmol/L Anion Gap (5-15) mmol/L BUN (7-18) mg/dL Creatinine (0.70-1.30) mg/dL Est Cr Clr Drug Dosing mL/min Estimated GFR (MDRD) Glucose (70-99) mg/dL Lactic Acid 1.0 (0.4-2.0) mmol/L Calcium (8.5-10.1) mg/dL Corrected Calcium (8.5-10.1) mg/dL Magnesium 1.7 L (1.8-2.4) mg/dL Total Bilirubin (0.2-1.0) mg/dL AST (15-37) U/L ALT (16-63) U/L Alkaline Phosphatase (46-116) U/L Troponin I High Sens (<=76) ng/L Total Protein (6.4-8.2) g/dL Albumin (3.4-5.0) g/dL Globulin Albumin/Globulin Ratio Amylase (25-115) U/L Urine Color (YELLOW) Urine Appearance (CLEAR) Urine pH (5.0-8.0) Ur Specific Bladen Urine Protein (NEGATIVE) mg/dL Urine Glucose (UA) (NEGATIVE) mg/dL Urine Ketones (NEGATIVE) mg/dL Urine Occult Blood (NEGATIVE) Urine Nitrite (NEGATIVE) Urine Bilirubin (NEGATIVE) Urine Urobilinogen (0.2) EU/dL Ur Leukocyte Esterase (NEGATIVE) Urine RBC (NOT SEEN) /HPF Urine WBC (NOT SEEN) /HPF Ur Squamous Epith Cells (NOT SEEN) /HPF Urine Bacteria (NOT SEEN) /HPF Urine Mucus (NOT SEEN) /LPF SARS CoV-2 RNA Rapid SAMM Negative (NEGATIVE) 07/15/20 07/15/20 07/15/20 Range/Units 00:35 01:35 10:05 WBC (4.0-10.0) x10^3/uL RBC (4.5-6.0) x10^6/uL Hgb (14.0-18.0) g/dL Hct (40.0-52.0) % MCV (78.0-93.0) fL MCH (26.0-32.0) pg MCHC (32.0-36.0) g/dL RDW Coeff of Prince (10.0-15.0) % Plt Count (130-400) x10^3/uL Neut % (Auto) (50.0-80.0) % Lymph % (Auto) (25.0-50.0) % Levy % (Auto) (2.0-11.0) % Eos % (Auto) (0.0-4.0) % Baso % (Auto) (0.2-1.2) % PT (9.9-12.5) SEC INR (2.0-3.5) ABG pH 7.40 (7.35-7.45) pH ABG pCO2 39 (35-48) mmHG ABG pO2 71 L (83-108) mmHG ABG HCO3 24 (21-28) mmol/L ABG Total CO2 24 (22-29) mmol/L ABG O2 Saturation 94.0 % ABG Base Excess -0 ((-2)-(+3)) mmol/L FiO2 0.21 Sodium (136-145) mmol/L Potassium 3.6 (3.5-5.1) mmol/L Chloride (98-107) mmol/L Carbon Dioxide (21-32) mmol/L Anion Gap (5-15) mmol/L BUN (7-18) mg/dL Creatinine (0.70-1.30) mg/dL Est Cr Clr Drug Dosing mL/min Estimated GFR (MDRD) Glucose (70-99) mg/dL Lactic Acid (0.4-2.0) mmol/L Calcium (8.5-10.1) mg/dL Corrected Calcium (8.5-10.1) mg/dL Magnesium (1.8-2.4) mg/dL Total Bilirubin (0.2-1.0) mg/dL AST (15-37) U/L ALT (16-63) U/L Alkaline Phosphatase (46-116) U/L Troponin I High Sens (<=76) ng/L Total Protein (6.4-8.2) g/dL Albumin (3.4-5.0) g/dL Globulin Albumin/Globulin Ratio Amylase (25-115) U/L Urine Color Light yellow (YELLOW) Urine Appearance Clear (CLEAR) Urine pH 6.0 (5.0-8.0) Ur Specific Bladen 1.015 Urine Protein 100 H (NEGATIVE) mg/dL Urine Glucose (UA) Negative (NEGATIVE) mg/dL Urine Ketones Negative (NEGATIVE) mg/dL Urine Occult Blood Negative (NEGATIVE) Urine Nitrite Negative (NEGATIVE) Urine Bilirubin Negative (NEGATIVE) Urine Urobilinogen 0.2 (0.2) EU/dL Ur Leukocyte Esterase Negative (NEGATIVE) Urine RBC 0-5 (NOT SEEN) /HPF Urine WBC 0-5 (NOT SEEN) /HPF Ur Squamous Epith Cells Rare (NOT SEEN) /HPF Urine Bacteria Not seen (NOT SEEN) /HPF Urine Mucus Not seen (NOT SEEN) /LPF SARS CoV-2 RNA Rapid SAMM (NEGATIVE) Result Diagrams: 07/15/20 00:01 07/15/20 10:05 Sepsis Event Note - Evaluation Sepsis Screening Result: No Definite Risk - Focused Exam Vital Signs: Vital Signs Temp Pulse Resp BP Pulse Ox 07/15/20 10:00 37.0 C 69 16 130/62 96 07/15/20 06:00 36.7 C 87 15 174/78 H 96 07/15/20 03:08 37.1 C 78 16 158/74 H 95 07/14/20 23:15 36.6 C 79 16 164/77 H 97 - Problem List Review Problem List Initiated/Reviewed/Updated: Yes - Plan Plan:: Spoke at length with pt. son, Zaki. He indicates that he is certain the patient is unable to care for himself. Pt. will be followed by geriatric social work professor. Son it hoping to find placement for the patient in a [place] facility to make it easier for him to coordinate his father's care. Pt. was seen by PT and OT at [facility] and did meet criteria for detention care. Subsequently, no PT or OT consult was requested for this admission. Continue IV fluids to optimize potassium. Son indicates that that pt. is a code 1. Medications reviewed. Pt. was on bisacodyl, and senna/docusate. These were discontinued, given pt. complaints of diarrhea for months. Stool was not consistent with c diff and pt. hasn't recently been hospitalized, so he wasn't screened for this.
[2020-07-15] MEDS: Carvedilol 25 MG Tab PO SCH ×2 (11:10→20:57)
[2020-07-15] MEDS: Venlafaxine 75 MG Cap.ER PO SCH (14:29)
[2020-07-15] MEDS: Cholecalciferol (Vitamin D3) 25 MCG Tab PO SCH (14:29)
[2020-07-15] MEDS ORDERED: Mirtazapine 15 MG Tab PO SCH (20:00)
[2020-07-16] MEDS: Sucralfate 1 GM Tab PO SCH ×2 (06:15→12:25)
[2020-07-16] MEDS ORDERED: Famotidine 20 MG Tab PO SCH (08:00)
[2020-07-16] MEDS ORDERED: Lisinopril 20 MG Tab PO SCH (08:00)
[2020-07-16] MEDS: Venlafaxine 75 MG Cap.ER PO SCH (09:09)
[2020-07-16] MEDS: Gabapentin 100 MG Cap PO SCH ×2 (09:09→12:25)
[2020-07-16] MEDS: amLODIPine 10 MG Tab PO SCH (09:09)
[2020-07-16] MEDS: Allopurinol 100 MG Tab PO SCH (09:10)
[2020-07-16] MEDS: Cholecalciferol (Vitamin D3) 25 MCG Tab PO SCH (09:10)
[2020-07-16] MEDS: Aspirin 81 MG Tab.Chew PO SCH (09:10)
[2020-07-16 09:11] VITALS: BP 166/99; PULSE 99
[2020-07-16] MEDS: Folic Acid 1 MG Tab PO SCH (09:11)
[2020-07-16] MEDS: Carvedilol 25 MG Tab PO SCH (09:11)
[2020-07-16] MEDS: Hypromellose 0.3% Ophth Soln 15 ML Bottle EYEBOTH SCH ×2 (09:11→12:25)
[2020-07-16] MEDS: Clopidogrel 75 MG Tab PO SCH (09:11)
--- NOTE | 2020-07-16 10:13 | PCM.DCSUM1 ---
Discharge Summary - Hospital Course Free Text/Narrative:: Patient here for weakness, not eating at home, hypokalemia. Patient has been evaluated by [facility]. Patient and son are agreeable at this time for the patient to be discharged to [facility]. Diagnosis: Stroke: No Modified [place] Scale: No Symptoms at All Modified [place] Scale Score: 0 - Discharge Data Discharge Date: 07/16/20 Discharge Disposition: DC/Tfer to Other 70 Condition: Stable - Referral to Home Health Date of Face to Face Encounter: 07/16/20 Reason for Homebound Status: Patient will need to be homebound due to mobility issues. Unable to ambulate far distances. Will need physical therapy to come into the home to work with the patient for further strengthening. Primary Care Physician: Max Blank NP Skilled Need: Physical Therapy - Patient Summary/Data Consults: Consultations 07/15/20 03:07 Consult to Case Management/Case Aide [CONS] Routine 07/15/20 06:43 Consult to Case Management/Case Aide [CONS] Routine 07/15/20 15:01 OT Evaluation and Treatment [CONS] Routine 07/16/20 09:02 PT Evaluation and Treatment [CONS] Routine - Patient Instructions Diet: Regular Diet as Tolerated, No Alcoholic Beverages Activity: Full Weight Bearing Driving: Do Not Drive Showering/Bathing: May Shower - Discharge Plan *PRESCRIPTION DRUG MONITORING PROGRAM REVIEWED*: Not Applicable *COPY OF PRESCRIPTION DRUG MONITORING REPORT IN PATIENT KAYLAN: Not Applicable Home Medications: Home Meds Folic Acid 1 mg PO DAILY 07/04/13 [History] Lisinopril 20 mg PO DAILY 07/04/13 [History] allopurinoL [Zyloprim] 100 mg PO DAILY 07/04/13 [History] Mirtazapine [Remeron] 15 mg PO BEDTIME 03/04/15 [History] Sucralfate [Carafate] 1 gm PO QIDACANDBED 03/04/15 [History] Gabapentin [Neurontin] 100 mg PO TID 07/27/17 [History] Venlafaxine [Effexor XR] 150 mg PO DAILY 07/27/17 [History] amLODIPine Besylate [Amlodipine Besylate] 10 mg PO DAILY 07/27/17 [History] carvediloL [Coreg] 25 mg PO BID 01/26/18 [History] Magnesium Hydroxide [Milk of Magnesia] 30 ml PO BEDTIME PRN 12/12/19 [History] Acetaminophen [Tylenol] 650 mg PO Q4H PRN MDD 4000 mg in 24 hours 04/19/20 [History] Aspirin 81 mg PO DAILY 04/19/20 [History] Cholecalciferol (Vitamin D3) [Vitamin D3] 2,000 unit PO DAILY 04/19/20 [History] Clopidogrel Bisulfate [Plavix] 75 mg PO DAILY 04/19/20 [History] Sennosides/Docusate Sodium [Senna-S 8.6-50 mg Tablet] 2 tab PO BID 04/19/20 [History] Bisacodyl [Laxative Suppository] 10 mg RECTAL DAILY PRN 04/20/20 [History] Albuterol Sulfate [Albuterol Sulfate Hfa] 2 inh PO Q6H PRN 07/15/20 [History] Cyanocobalamin (Vitamin B12) [Vitamin B12] 1,000 mcg PO DAILY 07/15/20 [History] Famotidine 20 mg PO BID 07/15/20 [History] Hypromellose [Eq Gentle] 1 drop EYEBOTH TID 07/15/20 [History] Magnesium Chloride [Mag Delay] 64 mg PO DAILY 07/15/20 [History] Na Phos,M-B/Na Phos,DI-B [Fleet Enema] 118 ml RECTAL ASDIRECTED PRN 07/15/20 [History] Nicotine [Nicotine Patch] 21 mg TD DAILY 07/15/20 [History] Thiamine Mononitrate (Vit B1) [Vitamin B-1] 200 mg PO DAILY 07/15/20 [History] Acetaminophen [Tylenol] 650 mg PO Q4H PRN tablet 07/16/20 [Rx] Albuterol [Ventolin HFA] 0 gm INH Q6H PRN inhaler 07/16/20 [Rx] Famotidine [Pepcid] 20 mg PO BID tablet 07/16/20 [Rx] Oxygen Therapy Mode: Room Air Forms: ED Department Discharge Referrals: PCP,None [Ordering Only Provider] - - Discharge Summary/Plan Comment DC Time >30 min.: No - General Info Date of Service: 07/16/20 Admission Dx/Problem (Free Text: Pt. was admitted early this AM Subjective Update: Pt. was admitted early this AM with complaints of abdominal pain, diarrhea, dehydration and mild hypokalemia. Pt. was seen by HALEY Prado. Pt. states that he has been experiencing the diarrhea "for months". Pt. was hospitalized in [facility] in March and discharged with acute toxic encephalopathy thought to be due to polypharmacy and history of ETOH abuse, chest pain with mildly elevated troponin, severe weakness and debility, and history of recent stroke in 2019. Pt. was discharged and admitted to [facility] in [place]. Pt. was unhappy there, and he checked out of the facility last week, according to son. On admission this AM, pt. had no white count. Lactic acid was normal. Urine was negative. Potassium was mildly decreased at 3.3. Pt. underwent CT abd/pelvis which showed some thickening of the gastric antrum of inflammatory vs. neoplastic etiology. Endoscopy was suggested. Pt. did have upper GI in 2013 that did show reactive gastropathy and the antrum without evidence of malignancy. Troponin and EKG were negative. Pt. was not complaining of chest pain or shortness of breath. Covid 19 was negative. Pt. was started on IV 1/2 NS and 20 meq Kcl at 100ml/hr. This AM, potassium was up to 3.6. This morning, pt. was walking with the assist of one and a walker. He has had one loose stool; staff states that it did not have the smell or consistency of stool associated with c diff colitis. In reviewing the patient's chart, it does not appear that he has been on any antibiotics recently. Appetite appears to be poor. He only consumed about 50% of his breakfast. Pt. states that he is not hungry. Pt. states that he is still having some abdominal discomfort but feels that it has improved. He is quite confused about the specifics or his medical history, which LTC he was in, or his discharge diagnoses for the hospital. Functional Status: Reports: Tolerating Diet, Ambulating, Urinating. Denies: New Symptoms - Review of Systems General: Reports: No Symptoms HEENT: Reports: No Symptoms Pulmonary: Reports: No Symptoms Cardiovascular: Reports: No Symptoms Gastrointestinal: Reports: No Symptoms Genitourinary: Reports: No Symptoms Musculoskeletal: Reports: No Symptoms Skin: Reports: No Symptoms Neurological: Reports: No Symptoms Psychiatric: Reports: No Symptoms - Patient Data Vitals - Most Recent: Last Vital Signs Temp 99.2 F 07/16/20 05:09 Pulse 99 07/16/20 09:11 Resp 20 07/16/20 05:09 BP 166/99 H 07/16/20 09:11 Pulse Ox 95 07/16/20 05:09 Weight - Most Recent: 363 lb 12.203 oz I&O - Last 24 hours: Intake & Output 07/15/20 07/16/20 07/16/20 22:59 06:59 14:59 Intake Total 640 240 Balance 640 240 Lab Results - Last 24 hrs: Laboratory Results - last 24 hr 07/15/20 07/15/20 Range/Units 00:01 10:05 Potassium 3.6 (3.5-5.1) mmol/L Procalcitonin 0.08 ng/mL Med Orders - Current: Current Medications Acetaminophen (Acetaminophen 325 Mg Tab) 650 mg PO Q4H PRN PRN Reason: Pain (Mild 1-3)/fever Albuterol (Albuterol Hfa 18 Gm Inhaler) 0 gm INH Q6H PRN PRN Reason: Shortness of Breath Allopurinol (Allopurinol 100 Mg Tab) 100 mg PO DAILY [facility] Last Admin: 07/16/20 09:10 Dose: 100 mg Documented by: Amlodipine Besylate (Amlodipine 10 Mg Tab) 10 mg PO DAILY [facility] Last Admin: 07/16/20 09:09 Dose: 10 mg Documented by: Artificial Tears (Hypromellose 0.3% Ophth Soln 15 Ml Bottle) 0 ml EYEBOTH TID [facility] Last Admin: 07/16/20 09:11 Dose: Not Given Documented by: Aspirin (Aspirin 81 Mg Tab.Chew) 81 mg PO DAILY [facility] Last Admin: 07/16/20 09:10 Dose: 81 mg Documented by: Carvedilol (Carvedilol 25 Mg Tab) 25 mg PO BID [facility] Last Admin: 07/16/20 09:11 Dose: 25 mg Documented by: Cholecalciferol (Cholecalciferol (Vitamin D3) 25 Mcg Tab) 50 mcg PO DAILY [facility] Last Admin: 07/16/20 09:10 Dose: 50 mcg Documented by: Clopidogrel Bisulfate (Clopidogrel 75 Mg Tab) 75 mg PO DAILY [facility] Last Admin: 07/16/20 09:11 Dose: 75 mg Documented by: Famotidine (Famotidine 20 Mg Tab) 20 mg PO BID [facility] Last Admin: 07/16/20 09:10 Dose: 20 mg Documented by: Folic Acid (Folic Acid 1 Mg Tab) 1 mg PO DAILY [facility] Last Admin: 07/16/20 09:11 Dose: 1 mg Documented by: Gabapentin (Gabapentin 100 Mg Cap) 100 mg PO TID [facility] Last Admin: 07/16/20 09:09 Dose: 100 mg Documented by: Potassium Chloride/Sodium Chloride (1/2 Ns With 20 Meq Kcl) 1,000 mls @ 100 mls/hr IV ASDIRECTED [facility] Last Admin: 07/15/20 07:11 Dose: 100 mls/hr Documented by: Lisinopril (Lisinopril 20 Mg Tab) 20 mg PO DAILY [facility] Last Admin: 07/16/20 09:10 Dose: 20 mg Documented by: Magnesium Hydroxide (Magnesium Hydroxide 400 Mg/5 Ml Susp 30 Ml Cup) 30 ml PO BEDTIME PRN PRN Reason: Constipation Mirtazapine (Mirtazapine 15 Mg Tab) 15 mg PO BEDTIME [facility] Last Admin: 07/15/20 20:51 Dose: 15 mg Documented by: Sodium Chloride (Sodium Chloride 0.9% 10 Ml Syringe) 10 ml FLUSH ASDIRECTED PRN PRN Reason: Keep Vein Open Sucralfate (Sucralfate 1 Gm Tab) 1 gm PO QIDACANDBED [facility] Last Admin: 07/16/20 06:15 Dose: Not Given Documented by: Venlafaxine HCl (Venlafaxine 75 Mg Cap.Er) 150 mg PO DAILY [facility] Last Admin: 07/16/20 09:09 Dose: 150 mg Documented by: Discontinued Medications Bisacodyl (Bisacodyl 10 Mg Supp) 10 mg RECTAL DAILY PRN PRN Reason: Constipation Hydrocortisone (Hydrocortisone 2.5% Crm 30 Gm Tube) 30 gm TOP BID [facility] Last Admin: 07/15/20 11:02 Dose: Not Given Documented by: Sodium Chloride (Normal Saline) 1,000 mls @ 999 mls/hr IV ONETIME ONE Stop: 07/15/20 00:50 Last Admin: 07/15/20 00:01 Dose: 999 mls/hr Documented by: Iopamidol (Iopamidol 612 Mg/Ml 100 Ml Bottle) 100 ml IVPUSH ONETIME ONE Stop: 07/15/20 01:47 Last Admin: 07/15/20 01:47 Dose: 100 ml Documented by: Lisinopril (Lisinopril 20 Mg Tab) 40 mg PO DAILY [facility] Last Admin: 07/15/20 11:00 Dose: 40 mg Documented by: Non-Formulary Medication (Cholecalciferol (Vitamin D3) [Vitamin D3]) 2,000 unit PO DAILY [facility] Last Admin: 07/15/20 11:06 Dose: Not Given Documented by: Non-Formulary Medication (Venlafaxine [Effexor Xr]) 150 mg PO DAILY [facility] Last Admin: 07/15/20 11:07 Dose: Not Given Documented by: Pantoprazole Sodium (Pantoprazole 40 Mg Tab.Cr) 40 mg PO DAILY [facility] Last Admin: 07/15/20 11:00 Dose: 40 mg Documented by: Senna/Docusate Sodium (Docusate Sodium/Sennosides 50-8.6 Mg Tab) 2 tab PO BID [facility] - Exam General: Reports: Alert, Oriented HEENT: Reports: Pupils Equal, Pupils Reactive, EOMI, Mucous Membr. Moist/[place]arm [place] Neck: Reports: Supple Lungs: Reports: Normal Respiratory Effort, Crackles (RLL) Cardiovascular: Reports: Regular Rate, Regular Rhythm GI/Abdominal Exam: Normal Bowel Sounds, Soft, Non-Tender, No Organomegaly, No Distention, No Abnormal Bruit, No Mass, Pelvis Stable (Male) Exam: Deferred Rectal (Males) Exam: Deferred Back Exam: Reports: Normal Inspection, Decreased Range of Motion Extremities: Normal Inspection, Normal Range of Motion, Non-Tender, No Pedal Edema, Normal Capillary Refill Skin: Reports: Warm, Dry, Intact Neurological: Reports: Other (speech difficult to understand) Psy/Mental Status: Reports: Alert, Depressed, Other (Uncooperative)
== END 2020-07-16 12:30 | disposition other institution (70) ==
LOC: VM.ED 23:15 → INTOOBSV 07-15 02:45 → VM.MS 07-15 02:45
PROVIDERS: ADMIT Nurse Practitioner Family; ATTEND Nurse Practitioner Family
DX: E87.6 Hypokalemia (principal); K29.00 Acute gastritis without bleeding; E86.0 Dehydration; E78.00 Pure hypercholesterolemia, unspecified; K80.20 Calculus of gallbladder without cholecystitis without obstruction; I12.9 Hypertensive chronic kidney disease with stage 1 through stage 4 chronic kidney disease, or unspecified chronic kidney disease; N18.30 Chronic kidney disease, stage 3 unspecified; M10.9 Gout, unspecified; Z20.822 Contact with and (suspected) exposure to COVID-19; Z87.442 Personal history of urinary calculi; Z88.8 Allergy status to other drugs, medicaments and biological substances; Z79.82 Long term (current) use of aspirin; Z79.899 Other long term (current) drug therapy
CPT/HCPCS: 36415; 36600; 74177; 80053; 81001; 82150; 82803; 83605; 83735; 84132; 84145; 84484; 85025; 85610; 93005; 93010; 97129-GO; 97161-GP; 99217; 99220; 99225; 99285-25; A9270-GY; J3480; J7030; Q9967; U0002

== ENCOUNTER 2020-07-16 14:12 | Emergency (ER) | payer MEDICARE, BC ==
[2020-07-16 14:23] VITALS: BP 139/55; PULSE 71
[2020-07-16] MEDS ORDERED: OLANZapine 10 MG Vial IM ONE (15:41)
[2020-07-16] MEDS ORDERED: Haloperidol Lactate 5 MG/ML SDV IM ONE (15:41)
--- NOTE | 2020-07-16 17:12 | EDM.PDOCBH ---
ED HPI GENERAL MEDICAL PROBLEM - General Chief Complaint: Behavioral/Psych Stated Complaint: ER Time Seen by Provider: 07/16/20 14:30 Source of Information: Reports: Patient, Family, Police, RN, RN Notes Reviewed - History of Present Illness INITIAL COMMENTS - FREE TEXT/NARRATIVE: Patient is an 79-year-old male who was discharged from observation from this facility today at approximately noon. Son picked him up took him to an assisted living where he had agreed to go for 1 week. Once son left him there he became combative, swinging his walker at staff members and left the facility. Patient was picked up by the police and brought to the ER. His primary care provider is aware that he is here and would like a psych eval and head CT performed. Onset: Gradual - Related Data Allergies Allergy/AdvReac Type Severity Reaction Status Date / Time duloxetine [From Cymbalta] Allergy Other Verified 07/16/20 14:57 hydrocodone AdvReac Hallucinati Verified 07/16/20 14:57 ons Home Meds: Home Meds Folic Acid 1 mg PO DAILY 07/04/13 [History] Lisinopril 20 mg PO DAILY 07/04/13 [History] allopurinoL [Zyloprim] 100 mg PO DAILY 07/04/13 [History] Mirtazapine [Remeron] 15 mg PO BEDTIME 03/04/15 [History] Sucralfate [Carafate] 1 gm PO QIDACANDBED 03/04/15 [History] Gabapentin [Neurontin] 100 mg PO TID 07/27/17 [History] Venlafaxine [Effexor XR] 150 mg PO DAILY 07/27/17 [History] amLODIPine Besylate [Amlodipine Besylate] 10 mg PO DAILY 07/27/17 [History] carvediloL [Coreg] 25 mg PO BID 01/26/18 [History] Magnesium Hydroxide [Milk of Magnesia] 30 ml PO BEDTIME PRN 12/12/19 [History] Acetaminophen [Tylenol] 650 mg PO Q4H PRN MDD 4000 mg in 24 hours 04/19/20 [History] Aspirin 81 mg PO DAILY 04/19/20 [History] Cholecalciferol (Vitamin D3) [Vitamin D3] 2,000 unit PO DAILY 04/19/20 [History] Clopidogrel Bisulfate [Plavix] 75 mg PO DAILY 04/19/20 [History] Sennosides/Docusate Sodium [Senna-S 8.6-50 mg Tablet] 2 tab PO BID 04/19/20 [History] Bisacodyl [Laxative Suppository] 10 mg RECTAL DAILY PRN 04/20/20 [History] Albuterol Sulfate [Albuterol Sulfate Hfa] 2 inh PO Q6H PRN 07/15/20 [History] Cyanocobalamin (Vitamin B12) [Vitamin B12] 1,000 mcg PO DAILY 07/15/20 [History] Famotidine 20 mg PO BID 07/15/20 [History] Hypromellose [Eq Gentle] 1 drop EYEBOTH TID 07/15/20 [History] Magnesium Chloride [Mag Delay] 64 mg PO DAILY 07/15/20 [History] Na Phos,M-B/Na Phos,DI-B [Fleet Enema] 118 ml RECTAL ASDIRECTED PRN 07/15/20 [History] Nicotine [Nicotine Patch] 21 mg TD DAILY 07/15/20 [History] Thiamine Mononitrate (Vit B1) [Vitamin B-1] 200 mg PO DAILY 07/15/20 [History] Acetaminophen [Tylenol] 650 mg PO Q4H PRN tablet 07/16/20 [Rx] Albuterol [Ventolin HFA] 0 gm INH Q6H PRN inhaler 07/16/20 [Rx] Famotidine [Pepcid] 20 mg PO BID tablet 07/16/20 [Rx] Past Medical History HEENT History: Reports: Hard of Hearing, Impaired Vision Cardiovascular History: Reports: High Cholesterol, Hypertension Respiratory History: Reports: None Gastrointestinal History: Reports: GERD, Other (See Below) Other Gastrointestinal History: Figueroa's esophagus, hx colon polyps, fm hx colon ca Genitourinary History: Reports: BPH, Chronic Renal Insuffiency, Renal Calculus, Renal Disease Other Genitourinary History: CKD III Musculoskeletal History: Reports: Connective Tissue Disease, Gout Other Musculoskeletal History: R hip FX, surgery on back, chronic fatigue Neurological History: Reports: Other (See Below) Other Neuro History: Wernicke encephalopathy Psychiatric History: Reports: Addiction, Anxiety, Depression, Other (See Below) Other Psychiatric History: Dementia Endocrine/Metabolic History: Reports: Other (See Below) Other Endocrine/Metabolic History: spinal stenosis lumbar Hematologic History: Reports: B12 Deficiency, Other (See Below) Other Hematologic History: hypokalemia. mypomagnesemia Immunologic History: Reports: None Oncologic (Cancer) History: Reports: None - Past Surgical History Head Surgeries/Procedures: Reports: None HEENT Surgical History: Reports: Other (See Below) Other HEENT Surgeries/Procedures: Bevacizumab injection GI Surgical History: Reports: Colonoscopy, Hernia Repair/Other Male Surgical History: Reports: Renal Calculus Neurological Surgical History: Reports: Lumbar Spine Musculoskeletal Surgical History: Reports: Other (See Below) Other Musculoskeletal Surgeries/Procedures:: ORIF right hip Social & Family History - Family History Family Medical History: Unobtainable Oncologic: Reports: Breast, Colon - Tobacco Use Tobacco Use Status *Q: Unknown Ever Used Tobacco - Caffeine Use Caffeine Use: Reports: Coffee, Soda - Living Situation & Occupation Living situation: Reports: , Alone, Other ( longterm alzheimer's) ED ROS GENERAL - Review of Systems Review Of Systems: Comprehensive ROS is negative, except as noted in HPI. ED EXAM, BEHAVIORAL HEALTH - Physical Exam Exam: See Below Exam Limited By: Combative/Threatening General Appearance: Alert, WD/WN, No Apparent Distress Eye Exam: Bilateral Eye: EOMI, Normal Inspection Ears: Normal External Exam, Hearing Grossly Normal Nose: Normal Inspection Throat/Mouth: Normal Inspection, Normal Voice, No Airway Compromise Head: Atraumatic, Normocephalic Neck: Normal Inspection, Supple, Non-Tender, Full Range of Motion Respiratory/Chest: No Respiratory Distress, No Accessory Muscle Use, Chest Non- Tender, Decreased Breath Sounds, Crackles (RLL) Cardiovascular: Normal Peripheral Pulses, Regular Rate, Rhythm, No Edema, No Gallop, No JVD, No Murmur, No Rub GI/Abdominal: Normal Bowel Sounds, Soft, Non-Tender (Male) Exam: Deferred Rectal (Males) Exam: Deferred Back Exam: Normal Inspection, Full Range of Motion, NT Extremities: Normal Inspection, Normal Range of Motion, Non-Tender, No Pedal Edema, Normal Capillary Refill Neurological: Alert, CN II-XII Intact, Normal Gait, Normal Reflexes, No Motor/Sensory Deficits, Oriented x 3, Disoriented to Time Psychiatric: Alert, Restless, Agitated, Uncooperative, Threatening Behavior Skin Exam: Warm, Dry, Intact, Normal color, No rash COURSE, BEHAVIORAL HEALTH COMP - Course Vital Signs: Last Vital Signs Temp 98.1 F 07/16/20 14:15 Pulse 71 07/16/20 14:15 Resp 18 07/16/20 14:15 BP 139/55 L 07/16/20 14:15 Pulse Ox 98 07/16/20 14:15 Orders, Labs, Meds: Active Orders 24 hr Category Date Time Status Head wo Cont [CT] Stat Exams 07/16/20 15:06 Ordered CBC WITH AUTO DIFF [HEME] Stat Lab 07/16/20 15:06 Ordered COMPREHENSIVE METABOLIC PN,CMP [CHEM] Stat Lab 07/16/20 15:06 Ordered Laboratory Tests 07/16/20 Range/Units 15:20 Urine Color Yellow (YELLOW) Urine Appearance Slightly cloudy H (CLEAR) Urine pH 5.5 (5.0-8.0) Ur Specific [place] >=1.030 Urine Protein >=300 H (NEGATIVE) mg/dL Urine Glucose (UA) Negative (NEGATIVE) mg/dL Urine Ketones Trace H (NEGATIVE) mg/dL Urine Occult Blood Trace-intact H (NEGATIVE) Urine Nitrite Negative (NEGATIVE) Urine Bilirubin Small H (NEGATIVE) Urine Urobilinogen 0.2 (0.2) EU/dL Ur Leukocyte Esterase Negative (NEGATIVE) U Hyaline Cast (Auto) Few Urine RBC 0-5 (NOT SEEN) /HPF Urine WBC 0-5 (NOT SEEN) /HPF Ur Squamous Epith Cells Rare (NOT SEEN) /HPF Amorphous Sediment Few Urine Bacteria Not seen (NOT SEEN) /HPF Urine Mucus Few H (NOT SEEN) /LPF Medications Discontinued Medications Generic Name Dose Route Start Last Admin Trade Name Freq PRN Reason Stop Dose Admin Haloperidol Lactate 2 mg 07/16/20 15:41 Haloperidol Lactate 5 Mg/Ml Sdv IM 07/16/20 15:42 STAT ONE Olanzapine 10 mg 07/16/20 15:41 Olanzapine 10 Mg Vial IM 07/16/20 15:42 ONETIME ONE Re-Assessment/Re-Exam: Khadra from the [facility] service [place] here to evaluate the patient. She states that she cannot be of service at this time as the patient is not displaying any psychotic behaviors. States he would just like to leave and have a cigarette. Discharge vs Psych Eval/Treatment:: 07/16/20 17:15 Called [facility] [place], they do not have any psych services. Did call [facility] in [place], no open beds at this time stated we could check back later. Did call [facility]te[facility] in [place] who states the patient needs a med psych facility and that they would not be of any assistance, as well is not having any beds. Discussed this with the nursing home social worker as well as the son. Patient is refusing any blood work to be drawn or head CT. Did order Haldol and Zyprexa which the patient also refused. perinatal social worker is working on getting a long-term care facility placement for the patient that also has a lockdown unit. Son has a greed to take the patient home for the evening and get help to take care of him until tomorrow when he possibly can be placed for longterm. Son encouraged to bring the patient back to the ER if any other issues arise. I did explain to the son that I could call [facility], [place] not as well to see if there was availability for psych placement, but in the end if he was accepted to the longterm he would have to drive to that facility pick him up and bring him back to the longterm. At this time there is no medical necessity for admission or transfer for medical needs. Departure - Departure Time of Disposition: 17:11 Disposition: Home, Self-Care 01 Condition: Fair Clinical Impression: Dementia Qualifiers: Dementia type: unspecified type Dementia behavioral disturbance: with beha vioral disturbance Qualified Code(s): F03.91 - Unspecified dementia with behavioral disturbance - Discharge Information *PRESCRIPTION DRUG MONITORING PROGRAM REVIEWED*: No *COPY OF PRESCRIPTION DRUG MONITORING REPORT IN PATIENT KAYLAN: No Instructions: Dementia Caregiver Guide, Dementia, [id number] Referrals: Max Blank NP [Primary Care Provider] - Forms: ED Department Discharge Additional Instructions: Patient to be discharged home with son Patient will be assessed by Care Center tomorrow Return to the ER with any further problems Sepsis Event Note (ED) - Evaluation Sepsis Screening Result: No Definite Risk - Focused Exam Vital Signs: Vital Signs Temp Pulse Resp BP Pulse Ox 07/16/20 14:15 98.1 F 71 18 139/55 L 98 - My Orders Last 24 Hours: My Active Orders 07/16/20 15:06 Head wo Cont [CT] Stat CBC WITH AUTO DIFF [HEME] Stat COMPREHENSIVE METABOLIC PN,CMP [CHEM] Stat - Assessment/Plan Last 24 Hours: My Active Orders 07/16/20 15:06 Head wo Cont [CT] Stat CBC WITH AUTO DIFF [HEME] Stat COMPREHENSIVE METABOLIC PN,CMP [CHEM] Stat
== END 2020-07-16 17:16 | disposition home or self-care (01) ==
LOC: VM.ED 14:12
DX: F03.91 Unspecified dementia, unspecified severity, with behavioral disturbance (principal); E78.00 Pure hypercholesterolemia, unspecified; I12.9 Hypertensive chronic kidney disease with stage 1 through stage 4 chronic kidney disease, or unspecified chronic kidney disease; N18.30 Chronic kidney disease, stage 3 unspecified; K21.9 Gastro-esophageal reflux disease without esophagitis; Z79.02 Long term (current) use of antithrombotics/antiplatelets; Z79.82 Long term (current) use of aspirin; Z88.5 Allergy status to narcotic agent; Z88.8 Allergy status to other drugs, medicaments and biological substances; Z79.899 Other long term (current) drug therapy
CPT/HCPCS: 81001; 99284; 99284-25

== ENCOUNTER 2020-09-25 23:10 | Emergency (ER) | payer MEDICARE, BC | END 2020-09-25 23:49 | disposition home or self-care (01) | LOC: VM.ED 23:10 | DX: K59.00 Constipation, unspecified (principal); Z53.21 Procedure and treatment not carried out due to patient leaving prior to being seen by health care provider ==

== ENCOUNTER 2021-08-10 16:25 | Emergency (ER) | payer MEDICARE, BC ==
[2021-08-10] MEDS ORDERED: Sodium Chloride 0.9% 10 ML Syringe FLUSH PRN (16:29)
[2021-08-10] MEDS ORDERED: Ketorolac 30 MG/ML SDV IVPUSH ONE (16:29)
[2021-08-10 16:35] VITALS: BP 139/66; PULSE 70
[2021-08-10 17:03] LABS: ANION GAP 16.9 mmol/L (5-15); CHLORIDE,CL 110 mmol/L (98-107); SODIUM,NA 143 mmol/L (136-145)
[2021-08-10] MEDS ORDERED: Tamsulosin 0.4 MG Cap.ER PO ONE (17:30)
== END 2021-08-10 18:05 | disposition home or self-care (01) ==
LOC: VM.ED 16:25
DX: N20.0 Calculus of kidney (principal); I12.9 Hypertensive chronic kidney disease with stage 1 through stage 4 chronic kidney disease, or unspecified chronic kidney disease; N18.30 Chronic kidney disease, stage 3 unspecified; Z79.899 Other long term (current) drug therapy; Z79.82 Long term (current) use of aspirin; Z88.5 Allergy status to narcotic agent; Z88.8 Allergy status to other drugs, medicaments and biological substances
CPT/HCPCS: 36415; 71045; 74176; 80053; 85025; 96374; 99284; 99285-25; A9270-GY; J1885

== ENCOUNTER 2021-09-03 05:15 | Emergency (ER) | payer MEDICARE, BC ==
[2021-09-03] MEDS ORDERED: Aspirin 81 MG Tab.Chew PO ONE (05:32)
[2021-09-03] MEDS ORDERED: Nitroglycerin 0.4 MG Tab.SL SL ONE (05:33)
[2021-09-03 06:09] LABS: CHLORIDE,CL 106 mmol/L (98-107); SODIUM,NA 142 mmol/L (136-145)
[2021-09-03 06:25] LABS: ANION GAP 15.8 mmol/L (5-15); ESTIMATED GFR 42
[2021-09-03] MEDS ORDERED: methylPREDNISolone Sodium Succinate 125 MG/2 ML SDV IVPUSH ONE (06:32)
[2021-09-03 07:22] VITALS: BP 152/78; PULSE 60
== END 2021-09-03 07:20 | disposition home or self-care (01) ==
LOC: VM.ED 05:15
DX: J40 Bronchitis, not specified as acute or chronic (principal); E78.00 Pure hypercholesterolemia, unspecified; I12.9 Hypertensive chronic kidney disease with stage 1 through stage 4 chronic kidney disease, or unspecified chronic kidney disease; N18.30 Chronic kidney disease, stage 3 unspecified; Z72.0 Tobacco use; Z79.899 Other long term (current) drug therapy; Z88.5 Allergy status to narcotic agent; Z88.8 Allergy status to other drugs, medicaments and biological substances
CPT/HCPCS: 36415; 71045; 80053; 82550; 83615; 84484; 85025; 86140; 93005; 96374; 99285; A9270; J2930

== ENCOUNTER 2021-10-02 18:06 | Emergency (ER) | payer MEDICARE, BC ==
[2021-10-02 18:46] LABS: CHLORIDE,CL 109 mmol/L (98-107); SODIUM,NA 142 mmol/L (136-145)
[2021-10-02 18:47] LABS: ANION GAP 15.3 mmol/L (5-15); ESTIMATED GFR 35 mL/min (>=60)
[2021-10-02 18:54] VITALS: BP 115/55; PULSE 71
== END 2021-10-02 20:03 | disposition home or self-care (01) ==
LOC: VM.ED 18:06
DX: K64.9 Unspecified hemorrhoids (principal); E78.00 Pure hypercholesterolemia, unspecified; I10 Essential (primary) hypertension; Z88.5 Allergy status to narcotic agent; Z88.8 Allergy status to other drugs, medicaments and biological substances; Z79.899 Other long term (current) drug therapy
CPT/HCPCS: 36415; 80053; 85025; 86140; 99283

== ENCOUNTER 2021-11-19 20:49 | Emergency (ER) | payer MEDICARE, BC ==
[2021-11-19 21:41] LABS: CHLORIDE,CL 109 mmol/L (98-107); SODIUM,NA 144 mmol/L (136-145)
[2021-11-19 21:42] LABS: ESTIMATED GFR 46 mL/min (>=60)
[2021-11-20 00:01] VITALS: BP 136/69; PULSE 74
== END 2021-11-19 23:05 | disposition home or self-care (01) ==
LOC: VM.ED 20:49
DX: R10.84 Generalized abdominal pain (principal); I12.0 Hypertensive chronic kidney disease with stage 5 chronic kidney disease or end stage renal disease; N18.30 Chronic kidney disease, stage 3 unspecified; Z88.5 Allergy status to narcotic agent; Z88.8 Allergy status to other drugs, medicaments and biological substances; Z79.899 Other long term (current) drug therapy; Z72.0 Tobacco use
CPT/HCPCS: 36415; 80053; 81001; 82274; 83690; 85025; 86140; 99284; 99285

== ENCOUNTER 2021-11-27 01:30 | Emergency (ER) | payer MEDICARE, BC ==
[2021-11-27 02:26] VITALS: BP 136/64; PULSE 72
[2021-11-27 02:30] LABS: ANION GAP 14.6 mmol/L (5-15)
== END 2021-11-27 03:24 | disposition home or self-care (01) ==
LOC: VM.ED 01:30
DX: R53.1 Weakness (principal); I12.9 Hypertensive chronic kidney disease with stage 1 through stage 4 chronic kidney disease, or unspecified chronic kidney disease; N18.30 Chronic kidney disease, stage 3 unspecified; E78.00 Pure hypercholesterolemia, unspecified; Z88.8 Allergy status to other drugs, medicaments and biological substances; Z88.5 Allergy status to narcotic agent; Z79.899 Other long term (current) drug therapy
CPT/HCPCS: 36415; 80053; 82550; 85025; 85610; 99284; 99285

== ENCOUNTER 2021-12-07 02:14 | Emergency (ER) | payer MEDICARE, BC ==
[2021-12-07 02:50] VITALS: BP 125/62; PULSE 60
[2021-12-07 03:18] LABS: ANION GAP 13.9 mmol/L (5-15)
== END 2021-12-07 03:56 | disposition home or self-care (01) ==
LOC: VM.ED 02:14
DX: M47.812 Spondylosis without myelopathy or radiculopathy, cervical region (principal); I12.9 Hypertensive chronic kidney disease with stage 1 through stage 4 chronic kidney disease, or unspecified chronic kidney disease; N18.30 Chronic kidney disease, stage 3 unspecified; E78.00 Pure hypercholesterolemia, unspecified; Z88.5 Allergy status to narcotic agent; Z88.8 Allergy status to other drugs, medicaments and biological substances; Z79.899 Other long term (current) drug therapy
CPT/HCPCS: 36415; 72020; 73020-LT; 80053; 83735; 84484; 85025; 93005; 93010; 99284; 99285

== ENCOUNTER 2022-02-09 13:45 | Emergency (ER) | payer MEDICARE, BC ==
[2022-02-09 13:57] VITALS: BP 146/68; PULSE 67
[2022-02-09 14:08] LABS: ANION GAP 16.7 mmol/L (5-15); CHLORIDE,CL 110 mmol/L (98-107); ESTIMATED GFR 40 mL/min (>=60); SODIUM,NA 145 mmol/L (136-145)
== END 2022-02-09 15:58 | disposition home or self-care (01) ==
LOC: VM.ED 13:45
DX: R53.1 Weakness (principal); E78.00 Pure hypercholesterolemia, unspecified; I12.9 Hypertensive chronic kidney disease with stage 1 through stage 4 chronic kidney disease, or unspecified chronic kidney disease; N18.30 Chronic kidney disease, stage 3 unspecified; M10.9 Gout, unspecified; Z88.5 Allergy status to narcotic agent; Z88.8 Allergy status to other drugs, medicaments and biological substances; Z79.02 Long term (current) use of antithrombotics/antiplatelets; Z79.899 Other long term (current) drug therapy
CPT/HCPCS: 36415; 80048; 81001; 85025; 99285

== ENCOUNTER 2022-02-18 21:16 | Emergency (ER) | payer MEDICARE, BC ==
[2022-02-18 22:00] VITALS: BP 178/93; PULSE 76
[2022-02-18 22:06] LABS: ANION GAP 13.2 mmol/L (5-15)
== END 2022-02-18 23:28 | disposition home or self-care (01) ==
LOC: VM.ED 21:16
DX: S33.5XXA Sprain of ligaments of lumbar spine, initial encounter (principal); E78.00 Pure hypercholesterolemia, unspecified; I12.9 Hypertensive chronic kidney disease with stage 1 through stage 4 chronic kidney disease, or unspecified chronic kidney disease; N18.30 Chronic kidney disease, stage 3 unspecified; M10.9 Gout, unspecified; Z86.73 Personal history of transient ischemic attack (TIA), and cerebral infarction without residual deficits; Z72.0 Tobacco use; Z88.8 Allergy status to other drugs, medicaments and biological substances; Z88.5 Allergy status to narcotic agent; Z79.02 Long term (current) use of antithrombotics/antiplatelets; Z79.899 Other long term (current) drug therapy; W18.30XA Fall on same level, unspecified, initial encounter
CPT/HCPCS: 36415; 71045; 72100; 80053; 81001; 83735; 84100; 85025; 99284

== ENCOUNTER 2022-08-19 18:59 | Emergency (ER) | payer MEDICARE, BC ==
[2022-08-19 20:03] VITALS: BP 128/83; PULSE 67
== END 2022-08-19 21:10 | disposition home or self-care (01) ==
LOC: VM.ED 18:59
DX: S80.211A Abrasion, right knee, initial encounter (principal); S80.212A Abrasion, left knee, initial encounter; M25.521 Pain in right elbow; E78.00 Pure hypercholesterolemia, unspecified; I12.9 Hypertensive chronic kidney disease with stage 1 through stage 4 chronic kidney disease, or unspecified chronic kidney disease; N18.30 Chronic kidney disease, stage 3 unspecified; Z88.8 Allergy status to other drugs, medicaments and biological substances; Z88.5 Allergy status to narcotic agent; Z79.899 Other long term (current) drug therapy; Z79.02 Long term (current) use of antithrombotics/antiplatelets; W10.9XXA Fall (on) (from) unspecified stairs and steps, initial encounter; Y92.009 Unspecified place in unspecified non-institutional (private) residence as the place of occurrence of the external cause
CPT/HCPCS: 73080-RT; 73562-LT; 73562-RT; 99284

== ENCOUNTER 2022-08-23 13:08 | Emergency (ER) | payer MEDICARE, BC ==
[2022-08-23 13:18] VITALS: BP 127/65; PULSE 66
[2022-08-23 13:41] LABS: BASOPHILS ABSOLUTE AUTO 0.1 x10^3/uL (0.0-0.2); BASOPHILS PERCENT AUTO 1.1 % (0.2-1.2); EOSINOPHILS ABSOLUTE AUTO 0.7 x10^3/uL (0.0-0.5); EOSINOPHILS PERCENT AUTO 8.4 % (0.0-4.0); HEMATOCRIT 32.2 % (40.0-52.0); HEMOGLOBIN 10.5 g/dL (14.0-18.0); IMMATURE GRAN ABSOLUTE AUTO 0.01 x10^3/uL (0.00-0.07); LYMPHOCYTES ABSOLUTE AUTO 1.3 x10^3/uL (1.0-4.8); LYMPHOCYTES PERCENT AUTO 15.1 % (25.0-50.0); MEAN CORPUSCULAR HGB CONC 32.6 g/dL (32.0-36.0); MONOCYTES ABSOLUTE AUTO 0.9 x10^3/uL (0.0-0.8); MONOCYTES PERCENT AUTO 9.7 % (2.0-11.0); NEUTROPHILS ABSOLUTE AUTO 5.8 x10^3/uL (1.8-7.7); NEUTROPHILS PERCENT AUTO 65.6 % (50.0-80.0); PLATELET COUNT,PLT 194 x10^3/uL (130-400); RED BLOOD CELL COUNT 3.62 x10^6/uL (4.5-6.0); WHITE BLOOD CELL COUNT,WBC 8.8 x10^3/uL (4.0-10.0)
[2022-08-23 13:57] LABS: PROTHROMBIN TIME 10.7 SEC (9.5-12.2)
[2022-08-23 14:02] LABS: A/G RATIO 1.23; ALANINE AMINOTRANSFERASE,ALT 14 U/L (16-63); ALBUMIN 3.2 g/dL (3.4-5.0); ALKALINE PHOSPHATASE 47 U/L (46-116); ASPARTATE AMNIOTRANSFERASE,AST 12 U/L (15-37); BILIRUBIN TOTAL 0.3 mg/dL (0.2-1.0); BLOOD UREA NITROGEN,BUN 25 mg/dL (7-18); CALCIUM 8.7 mg/dL (8.5-10.1); CARBON DIOXIDE,CO2 25 mmol/L (21-32); CHLORIDE,CL 108 mmol/L (98-107); CREATININE 1.6 mg/dL (0.70-1.30); GLUCOSE RANDOM 114 mg/dL (70-99); LIPASE 109 U/L (73-393); POTASSIUM,K 3.8 mmol/L (3.5-5.1); PROTEIN TOTAL,TP 5.8 g/dL (6.4-8.2); SODIUM,NA 144 mmol/L (136-145)
[2022-08-23 14:03] LABS: ANION GAP 14.8 mmol/L (5-15); ESTIMATED GFR 42 mL/min (>=60)
[2022-08-23] MEDS ORDERED: Iopamidol 612 MG/ML 100 ML Bottle IVPUSH ONE (14:14)
== END 2022-08-23 16:18 | disposition home or self-care (01) ==
LOC: VM.ED 13:08
DX: K59.00 Constipation, unspecified (principal); E78.00 Pure hypercholesterolemia, unspecified; I12.9 Hypertensive chronic kidney disease with stage 1 through stage 4 chronic kidney disease, or unspecified chronic kidney disease; N18.30 Chronic kidney disease, stage 3 unspecified; K21.9 Gastro-esophageal reflux disease without esophagitis; Z88.5 Allergy status to narcotic agent; Z88.8 Allergy status to other drugs, medicaments and biological substances; Z79.899 Other long term (current) drug therapy; Z79.02 Long term (current) use of antithrombotics/antiplatelets
CPT/HCPCS: 36415; 74177; 80053; 80143; 80179; 83690; 85025; 85610; 99284; Q9967

== ENCOUNTER 2022-08-24 11:47 | Emergency (ER) | payer MEDICARE, BC ==
[2022-08-24 11:53] VITALS: BP 125/65; PULSE 68
== END 2022-08-24 13:21 | disposition home or self-care (01) ==
LOC: VM.ED 11:47
DX: K59.00 Constipation, unspecified (principal); E78.00 Pure hypercholesterolemia, unspecified; I12.9 Hypertensive chronic kidney disease with stage 1 through stage 4 chronic kidney disease, or unspecified chronic kidney disease; N18.30 Chronic kidney disease, stage 3 unspecified; F17.210 Nicotine dependence, cigarettes, uncomplicated; Z88.5 Allergy status to narcotic agent; Z88.8 Allergy status to other drugs, medicaments and biological substances; Z79.899 Other long term (current) drug therapy; Z79.02 Long term (current) use of antithrombotics/antiplatelets
CPT/HCPCS: 74019; 99284

== ENCOUNTER 2022-12-30 12:11 | Emergency (ER) | payer MEDICARE, BC ==
[2022-12-30] MEDS ORDERED: Sodium Chloride 0.9% 10 ML Syringe FLUSH PRN (12:24)
[2022-12-30 12:42] LABS: HEMOGLOBIN 11.9 g/dL (14.0-18.0); MEAN CORPUSCULAR HEMOGLOBIN 27.7 pg (26.0-32.0); MEAN CORPUSCULAR HGB CONC 32.2 g/dL (32.0-36.0); MEAN CORPUSCULAR VOLUME 86.2 fL (78.0-93.0); PLATELET COUNT,PLT 184 x10^3/uL (130-400); RED BLOOD CELL COUNT 4.29 x10^6/uL (4.5-6.0); WHITE BLOOD CELL COUNT,WBC 7.9 x10^3/uL (4.0-10.0)
[2022-12-30 13:00] LABS: PROTHROMBIN TIME 10.6 SEC (9.5-12.2); PTT,PARTIAL THROMBOPLSTIN TIME 27.7 SEC (23.6-33.6)
[2022-12-30 13:04] LABS: BAND PERCENT MAN 2 % (0-6); BASOPHILS ABSOLUTE MAN 0.1 x10^3/uL (0.0-0.2); BASOPHILS PERCENT MAN 1 % (0-1); EOSINOPHILS ABSOLUTE MAN 1.3 x10^3/uL (0.0-0.5); EOSINOPHILS PERCENT MAN 17 % (0-4); LYMPHOCYTES ABSOLUTE MAN 1.3 x10^3/uL (1.0-4.8); LYMPHOCYTES PERCENT MAN 13 % (25-50); MONOCYTES ABSOLUTE MAN 0.8 x10^3/uL (0.0-0.8); MONOCYTES PERCENT MAN 10 % (2-11); NEUTROPHILS ABSOLUTE MAN 4.4 x10^3/uL (1.8-7.7); SEG NEUTROPHILS PERCENT MAN 54 % (50-80)
[2022-12-30 13:05] LABS: ANISOCYTOSIS 1+ SLIGHT; GIANT PLATELETS RARE; PLATELET COUNT ESTIMATE ADEQUATE; TOXIC GRANULATION 1+ SLIGHT; VACUOLATED NEUTROPHILS 2+ MODERATE
[2022-12-30 13:06] LABS: LACTIC ACID 0.8 mmol/L (0.4-2.0)
[2022-12-30 13:14] LABS: A/G RATIO 1.36; ALANINE AMINOTRANSFERASE,ALT 10 U/L (16-63); ALBUMIN 3.4 g/dL (3.4-5.0); ALKALINE PHOSPHATASE 57 U/L (46-116); ASPARTATE AMNIOTRANSFERASE,AST 13 U/L (15-37); BILIRUBIN TOTAL 0.4 mg/dL (0.2-1.0); BLOOD UREA NITROGEN,BUN 19 mg/dL (7-18); CALCIUM 8.8 mg/dL (8.5-10.1); CARBON DIOXIDE,CO2 25 mmol/L (21-32); CHLORIDE,CL 110 mmol/L (98-107); CREATININE 1.2 mg/dL (0.70-1.30); GLUCOSE RANDOM 108 mg/dL (70-99); MAGNESIUM 1.6 mg/dL (1.8-2.4); PHOSPHORUS 3.6 mg/dL (2.6-4.7); POTASSIUM,K 3.7 mmol/L (3.5-5.1); PROTEIN TOTAL,TP 5.9 g/dL (6.4-8.2); SODIUM,NA 144 mmol/L (136-145); TSH ULTRASENSITIVE 0.271 uIU/mL (0.358-3.74)
[2022-12-30 13:17] LABS: ANION GAP 12.7 mmol/L (5-15); C-REACTIVE PROTEIN < 0.05 mg/dL (<=0.30); ESTIMATED GFR 60 mL/min (>=60)
[2022-12-30 13:23] LABS: ETHANOL BLOOD MEDICAL < 3 mg/dL (0-3)
[2022-12-30] MEDS ORDERED: Sodium Chloride 0.9% 1,000 ML IV SCH (13:30)
[2022-12-30 14:49] VITALS: BP 128/59; PULSE 64
== END 2022-12-30 14:00 | disposition home or self-care (01) ==
LOC: VM.ED 12:11
DX: E86.0 Dehydration (principal); I12.9 Hypertensive chronic kidney disease with stage 1 through stage 4 chronic kidney disease, or unspecified chronic kidney disease; N18.30 Chronic kidney disease, stage 3 unspecified; E78.00 Pure hypercholesterolemia, unspecified; F17.210 Nicotine dependence, cigarettes, uncomplicated; Z88.5 Allergy status to narcotic agent; Z88.8 Allergy status to other drugs, medicaments and biological substances; Z79.899 Other long term (current) drug therapy
CPT/HCPCS: 70450; 71045; 80053; 80307; 82140; 83605; 83735; 84100; 84443; 84484; 85025; 85610; 85730; 86140; 93005; 93010; 96360; 99284; 99285; J7030

== ENCOUNTER 2023-01-30 17:52 | Inpatient (IN) | payer MEDICARE, BC ==
[2023-01-30] MEDS ORDERED: Ondansetron 4 MG/2 ML SDV IVPUSH ONE (18:09)
[2023-01-30 18:25] LABS: HEMATOCRIT 29.9 % (40.0-52.0); HEMOGLOBIN 9.5 g/dL (14.0-18.0); MEAN CORPUSCULAR HEMOGLOBIN 28.9 pg (26.0-32.0); MEAN CORPUSCULAR HGB CONC 31.8 g/dL (32.0-36.0); MEAN CORPUSCULAR VOLUME 90.9 fL (78.0-93.0); PLATELET COUNT,PLT 209 x10^3/uL (130-400); RED BLOOD CELL COUNT 3.29 x10^6/uL (4.5-6.0); WHITE BLOOD CELL COUNT,WBC 11.9 x10^3/uL (4.0-10.0)
[2023-01-30 18:32] LABS: ANISOCYTOSIS 1+ SLIGHT; EOSINOPHILS PERCENT MAN 8 % (0-4); HYPOCHROMASIA 1+ SLIGHT; LYMPHOCYTES ABSOLUTE MAN 1.4 x10^3/uL (1.0-4.8); LYMPHOCYTES PERCENT MAN 12 % (25-50); MONOCYTES ABSOLUTE MAN 1.3 x10^3/uL (0.0-0.8); MONOCYTES PERCENT MAN 11 % (2-11); NEUTROPHILS ABSOLUTE MAN 8.2 x10^3/uL (1.8-7.7); PLATELET COUNT ESTIMATE ADEQUATE; SEG NEUTROPHILS PERCENT MAN 69 % (50-80)
[2023-01-30 18:33] LABS: GIANT PLATELETS RARE
[2023-01-30 18:39] LABS: A/G RATIO 1.32; ALANINE AMINOTRANSFERASE,ALT 20 U/L (16-63); ALBUMIN 2.9 g/dL (3.4-5.0); ALKALINE PHOSPHATASE 51 U/L (46-116); AMYLASE 45 U/L (25-115); ASPARTATE AMNIOTRANSFERASE,AST 12 U/L (15-37); BILIRUBIN TOTAL 0.5 mg/dL (0.2-1.0); BLOOD UREA NITROGEN,BUN 36 mg/dL (7-18); CALCIUM 8.4 mg/dL (8.5-10.1); CARBON DIOXIDE,CO2 27 mmol/L (21-32); CHLORIDE,CL 112 mmol/L (98-107); CREATININE 1.6 mg/dL (0.70-1.30); EST CRCL DRUG DOSING (CG) 36.16 mL/min; GLUCOSE RANDOM 100 mg/dL (70-99); LIPASE 30 U/L (19-71); MAGNESIUM 1.5 mg/dL (1.8-2.4); POTASSIUM,K 4.4 mmol/L (3.5-5.1); PROTEIN TOTAL,TP 5.1 g/dL (6.4-8.2); SODIUM,NA 150 mmol/L (136-145)
[2023-01-30 18:40] LABS: ANION GAP 15.4 mmol/L (5-15); C-REACTIVE PROTEIN < 0.20 mg/dL (<=0.30); ESTIMATED GFR 42 mL/min (>=60)
[2023-01-30] MEDS ORDERED: Iopamidol 612 MG/ML 100 ML Bottle IVPUSH ONE (18:45)
[2023-01-30] MEDS ORDERED: Sodium Chloride 0.9% 500 ML IV ONE (18:57)
[2023-01-30] MEDS ORDERED: Lactated Ringers 1,000 ML IV ONE (20:39)
[2023-01-30] MEDS ORDERED: Ondansetron 4 MG/2 ML SDV IVPUSH PRN (20:40)
[2023-01-30] MEDS ORDERED: Albuterol 0.083% 2.5 MG/3 ML Neb Soln NEB PRN (20:42)
[2023-01-30] MEDS ORDERED: Mirtazapine 15 MG Tab PO SCH (21:00)
[2023-01-30] MEDS: Metoclopramide 10 MG/2 ML SDV IVPUSH SCH (22:00)
[2023-01-30] MEDS: atorvaSTATin 10 MG Tab PO SCH ×2 (22:29→23:16)
[2023-01-30] MEDS: Carvedilol 25 MG Tab PO SCH ×2 (22:32→23:16)
[2023-01-30] MEDS ORDERED: Lactated Ringers 1,000 ML IV SCH (23:01)
[2023-01-30] MEDS: Pantoprazole 40 MG Vial ONE ×2 (23:10)
[2023-01-30] MEDS ORDERED: Pantoprazole 40 MG Vial IV ONE (23:45)
[2023-01-31] MEDS ORDERED: fentaNYL 50 MCG/ML SDV IVPUSH ONE (01:51)
[2023-01-31 02:19] LABS: HEMATOCRIT 20.3 % (40.0-52.0); MEAN CORPUSCULAR VOLUME 90.6 fL (78.0-93.0); PLATELET COUNT,PLT 232 x10^3/uL (130-400); RED BLOOD CELL COUNT 2.24 x10^6/uL (4.5-6.0); WHITE BLOOD CELL COUNT,WBC 13.3 x10^3/uL (4.0-10.0)
[2023-01-31 02:23] LABS: HEMOGLOBIN 6.5 g/dL (14.0-18.0)
[2023-01-31 02:28] LABS: ANISOCYTOSIS 1+ SLIGHT; BAND PERCENT MAN 1 % (0-6); EOSINOPHILS ABSOLUTE MAN 0.1 x10^3/uL (0.0-0.5); EOSINOPHILS PERCENT MAN 1 % (0-4); GIANT PLATELETS RARE; LYMPHOCYTES ABSOLUTE MAN 1.5 x10^3/uL (1.0-4.8); LYMPHOCYTES PERCENT MAN 11 % (25-50); MONOCYTES ABSOLUTE MAN 0.9 x10^3/uL (0.0-0.8); MONOCYTES PERCENT MAN 7 % (2-11); NEUTROPHILS ABSOLUTE MAN 10.8 x10^3/uL (1.8-7.7); OVALOCYTES 1+ SLIGHT; PLATELET COUNT ESTIMATE ADEQUATE; SEG NEUTROPHILS PERCENT MAN 80 % (50-80)
[2023-01-31 02:34] LABS: A/G RATIO 1.39; ALBUMIN 2.5 g/dL (3.4-5.0); BILIRUBIN TOTAL 0.2 mg/dL (0.2-1.0); CALCIUM 7.8 mg/dL (8.5-10.1); CREATININE 1.7 mg/dL (0.70-1.30); EST CRCL DRUG DOSING (CG) 34.45 mL/min; POTASSIUM,K 5.3 mmol/L (3.5-5.1); PROTEIN TOTAL,TP 4.3 g/dL (6.4-8.2)
[2023-01-31] MEDS: Metoclopramide 10 MG/2 ML SDV IVPUSH SCH (02:34)
[2023-01-31 02:35] LABS: ANION GAP 17.3 mmol/L (5-15)
[2023-01-31 02:41] LABS: LACTIC ACID 3.8 mmol/L (0.4-2.0)
[2023-01-31 03:14] VITALS: BP 109/81; PULSE 102
[2023-01-31] MEDS ORDERED: amLODIPine 10 MG Tab PO SCH (09:00)
[2023-01-31] MEDS ORDERED: Clopidogrel 75 MG Tab PO SCH (09:00)
[2023-01-31] MEDS ORDERED: Lisinopril 20 MG Tab PO SCH (09:00)
[2023-01-31] MEDS ORDERED: Allopurinol 100 MG Tab PO SCH (09:00)
[2023-01-31] MEDS ORDERED: Folic Acid 1 MG Tab PO SCH (09:00)
== END 2023-01-31 03:19 | disposition short-term general hospital (02) | DRG 382 ==
LOC: VM.ED 17:52 → VM.MS 20:27 → UNDODISIN 01-31 03:19
PROVIDERS: ADMIT Nurse Practitioner Family; ATTEND Family Medicine
PROC: 30233N1 Transfusion of Nonautologous Red Blood Cells into Peripheral Vein, Percutaneous Approach (ICD-10-PCS; principal; 2023-01-31)
DX: K31.1 Adult hypertrophic pyloric stenosis (principal); E86.0 Dehydration; K31.84 Gastroparesis; K21.9 Gastro-esophageal reflux disease without esophagitis; E78.00 Pure hypercholesterolemia, unspecified; I12.9 Hypertensive chronic kidney disease with stage 1 through stage 4 chronic kidney disease, or unspecified chronic kidney disease; N18.30 Chronic kidney disease, stage 3 unspecified; N40.0 Benign prostatic hyperplasia without lower urinary tract symptoms; F03.90 Unspecified dementia, unspecified severity, without behavioral disturbance, psychotic disturbance, mood disturbance, and anxiety; F41.9 Anxiety disorder, unspecified; F32.A Depression, unspecified; K31.89 Other diseases of stomach and duodenum; Z88.5 Allergy status to narcotic agent; Z86.010 Personal history of colon polyps; Z88.8 Allergy status to other drugs, medicaments and biological substances; Z87.442 Personal history of urinary calculi; Z85.038 Personal history of other malignant neoplasm of large intestine; Z79.899 Other long term (current) drug therapy; Z98.890 Other specified postprocedural states
CPT/HCPCS: 36415; 36430; 74177; 80053; 82150; 83605; 83690; 83735; 85025; 86140; 86850; 86900; 86901; 86920; 86922; 96374; 99284; 99285-25; A9270-GY; C9113; J2405; J2765; J3010; J7030; J7050; J7120; P9016; Q9967